=== PATIENT | male | born 1965 | race Caucasian/White ===

== ENCOUNTER → 2018-04-16 | Outpatient (CLI) | payer OTHER ==
--- NOTE | 2018-04-17 13:23 | US ---
EXAMINATION TYPE: US thyroid st tissue head/neck DATE OF EXAM: 04/16/2018 COMPARISON: NONE CLINICAL HISTORY: R22.0 SWELLING,MASS. Neck swelling, on thyroid meds, graves disease GLAND SIZE: Right Lobe: 3.5 x 1.1 x 0.9 cm Overall Parenchyma: homogenous Left Lobe: 3.2 x 1.0 x 1.0 cm Overall Parenchyma: homogeneous Isthmus Thickness: 0.1 cm NODULES RIGHT: # of nodules measured on right: 0 LEFT: # of nodules measured on left: 0 ISTHMUS: # of nodules measured in the isthmus: 0 Bilateral neck scanned, right submandibular at patient's area of concern: 0.5cm echogenic focus seen within gland. IMPRESSION: Shadowing right mandibular calculus likely relates to a nonobstructing sialolith. No thyroid nodules or enlargement.
== END | disposition home or self-care (01) ==
LOC: RADUSWWP 15:27
PROVIDERS: ATTEND Nurse Practitioner Adult Health
DX: R22.0 Localized swelling, mass and lump, head (principal)
CPT/HCPCS: 76536

== ENCOUNTER → 2019-02-03 | Outpatient (CLI) | payer OTHER ==
--- NOTE | 2019-02-03 22:00 | CONS ---
CONSULTATION DATE OF SERVICE: 02/03/2019 This patient is a 53-year-old gentleman who has been [facility] for obstructive sleep apnea-hypopnea syndrome. HISTORY OF PRESENT ILLNESS/SLEEP-WAKE EVALUATION: About 12 years ago in [place] the patient was diagnosed with severe sleep apnea, according to him, and after that he underwent throat surgery which included removing his uvula and part of the soft palate. After that, patient's breathing improved and his snoring improved, but then later he developed his symptoms again. At present, his sleep schedule is from midnight until 8:30 a.m. on weekdays and until 9:30 a.m. on weekends. Sometimes he has problems with falling asleep, but usually not significantly more than 30 minutes. No TV in bedroom. He prefers to sleep on the side position. He has loud snoring, witnessed episodes of stopped breathing during sleep, awakenings from sleep with choking and nocturia several times. No history of hypnagogic hallucinations, sleep paralysis or cataplexy. In the morning the patient wakes up tired, has difficulties paying attention, falling asleep during the day, worrying about his sleep, has problems with memory, concentration, irritability, depression and anxiety. He usually does not take naps, but rarely may take a nap at 3 p.m. Usually he does not feel refreshed after a nap. He may see dreams during naps. He is drinking one caffeinated beverage during the day. [place] Sleepiness Scale is 9. PAST MEDICAL HISTORY: Past medical history is positive for: 1. Graves' disease, treated with radioactive iodine. At present he is on treatment with thyroid replacement. 2. ADHD. PAST SURGICAL HISTORY: Uvulectomy. MEDICATIONS: 1. Levothyroxine. 2. Adderall. 3. Presently Wellbutrin for stopping smoking. SOCIAL HISTORY: Positive for smoking around one pack a day for 25 years. Alcohol consumption rarely. FAMILY HISTORY: Hypertension, heart problems, stroke, bronchitis, sleep apnea, cancer, acid reflux, thyroid problems, mental illness, restless legs. REVIEW OF SYSTEMS: Awakenings from sleep, snoring, stopped breathing during sleep, tiredness and sleepiness during the day. PHYSICAL EXAMINATION: GENERAL: A pleasant gentleman without distress. VITAL SIGNS: BP 158/84, HR 84, RR 16, height 6 feet 1 inch, weight 196, body mass index 25.8, temperature 98.1, oxygen saturation at room air 97%. HEENT: PERRLA, EOMI. Evaluation of oropharynx showed tongue protrudes midline. Extremely low position of soft palate. Mallampati IV. Slight restriction of nasal breathing. NECK: Supple. No JVD. Thyroid is not palpable. Wide neck; 16-1/2 inches in circumference. LUNGS: A few wheezes. HEART: S1, S2 regular. No murmurs, gallops or rubs. ABDOMEN: Soft and nontender. Bowel sounds are present. No organomegaly. EXTREMITIES: No clubbing or cyanosis. 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 Cranial nerves 2 to 7 intact. There is no fasciculation or atrophy. noted. No focal deficits observed. IMPRESSION: 1. Loud snoring, witnessed episodes of stopped breathing during sleep, history of obstructive sleep apnea in the past, extremely low position of soft palate, Mallampati IV, wide neck, episodes of tiredness and sleepiness during the day, awakenings from sleep; obstructive sleep apnea-hypopnea syndrome. 2. History of Graves' disease, status post treatment with radioactive iodine. 3. Hypothyroidism, presently on treatment with thyroid hormones. 4. History of attention deficit hyperactivity disorder. 5. Status post uvulectomy. 6. History of smoking for 25 pack/years. The patient continues to smoke, trying to stop smoking. PLAN: 1. Polysomnography for evaluation of patient's breathing during sleep. 2. CPAP/BiPAP titration if sleep study confirms obstructive sleep apnea-hypopnea syndrome. 3. Preferable position during sleep on the side. 4. No driving if patient feels any sleepiness. 5. I will see patient for follow up visit to explain results of testing and following plan. Thank you very much for referring this patient for consultation. Sincerely, William Bartlett MD, PhD, FAASM Diplomat of [place] [employer] [place] [employer] [facility] [place] MMODL / IJN: [id number] /
== END | disposition home or self-care (01) ==
LOC: SLEEP 14:05
PROVIDERS: ATTEND Internal Medicine
DX: G47.33 Obstructive sleep apnea (adult) (pediatric) (principal); E03.9 Hypothyroidism, unspecified; Z86.39 Personal history of other endocrine, nutritional and metabolic disease; Z86.59 Personal history of other mental and behavioral disorders; F17.210 Nicotine dependence, cigarettes, uncomplicated; Z90.89 Acquired absence of other organs; Z79.899 Other long term (current) drug therapy
CPT/HCPCS: 99211

== ENCOUNTER → 2020-08-13 | Outpatient (CLI) | payer OTHER ==
--- NOTE | 2020-08-13 17:54 | XR ---
EXAMINATION TYPE: XR shoulder complete LT DATE OF EXAM: 08/13/2020 COMPARISON: NONE HISTORY: Shoulder pain TECHNIQUE: 3 views FINDINGS: I see no fracture nor dislocation. Joint spaces are normal. There are no pathologic calcifi cations. IMPRESSION: Negative left shoulder exam.
== END ==
LOC: RADXRMAIN 16:22
PROVIDERS: ATTEND Nurse Practitioner Adult Health
DX: M25.512 Pain in left shoulder (principal)

== ENCOUNTER → 2021-12-20 | Outpatient (CLI) | payer OTHER ==
--- NOTE | 2021-12-20 09:11 | CTL ---
EXAMINATION TYPE: CT Low Dose Lung DATE OF EXAM ORDERED: 12/20/2021 HISTORY: Tobacco use. Lung cancer screening CT DLP: 140.[address] CTDI: 3.7 mGy Automated exposure control for dose reduction was used. SCREENING VISIT: First screening visit. COMPARISON: None TECHNIQUE: Low dose computed tomography scan was performed through the chest at 1 mm thick sections a nd reconstructed images in multiple planes at 1 mm and [address] DIAGNOSTIC QUALITY: Satisfactory FINDINGS: LUNG NODULES: No concerning pulmonary nodules. LUNGS: COPD: Severity: Minimal apical right paraseptal emphysematous changes. Fibrosis: Severity: None Lymph nodes: 2 mm right intrafissural lymph node identified. Other findings: None RIGHT PLEURAL SPACE: Effusion: None Calcification: None Thickening: Mild apical thickening. Pneumothorax: None LEFT PLEURAL SPACE: Effusion: None Calcification: None Thickening: Mild apical thickening. Pneumothorax: None HEART: Heart Size: Normal Coronary Calcification: Dense left anterior descending coronary artery calcification and/or stent. Pericardial Effusion: None OTHER FINDINGS: Upper abdomen: Thickening of the left adrenal gland. Bony thorax: None Supraclavicular region: None Other: None IMPRESSION: No concerning pulmonary nodules. CT LUNG RAD AND CT CHEST RECOMMENDATION: Lung-Rad 1 Negative: Continue annual screening with LDCT in 12 months. S Modifier (other clinically significant findings): None
--- NOTE | 2021-12-20 09:19 | US ---
EXAMINATION TYPE: US abdomen complete DATE OF EXAM: 12/20/2021 COMPARISON: CT lung CLINICAL HISTORY: K219 GERD WITHOUT ESOPHAGITIS. EXAM MEASUREMENTS: Liver Length: 17.3 cm Gallbladder Wall: 0.2 cm CBD: 0.2 cm Spleen: 11.9 cm Right Kidney: 10.4 x 4.9 x 5.2 cm Left Kidney: 13.1 x 5.7 x 5.1 cm Patient of large body habitus, technically difficult limited exam. Pancreas: wnl as seen, partially obscured by overlying bowel Liver: Increased attenuation, decreased visualization of vessels suggestive of fatty infiltrate, upp er limites of normal in size Gallbladder: wnl Evidence for sonographic Rouse's sign: no CBD: wnl Spleen: wnl Right Kidney: very limited views, inferior pole obscured by overlying bowel gas Left Kidney: measures large Upper IVC: wnl Abd Aorta: distal and bifurcation obscured by overlying bowel gas The intrahepatic portion of the IVC and proximal abdominal aorta are within normal limits. There is no evidence of cholelithiasis. Common bile duct is unremarkable. The visualized portions of the hart creas are homogenous. The spleen is unremarkable. Kidneys are symmetric and free of hydronephrosis. No renal lesions are seen. IMPRESSION: There is evidence of hepatic steatosis.
[2021-12-20 15:11] LABS: ALT 44 U/L (10-49); AST 18 U/L (14-35); African American GFR (CKD) 97.8 (60.0-200.0); Albumin 4.3 g/dL (3.8-4.9); Albumin/Globulin Ratio 1.48 (1.60-3.17); Alkaline Phosphatase 60 U/L (41-126); Blood Urea Nitrogen 18.6 mg/dL (9.0-27.0); Calcium 9.7 mg/dL (8.7-10.3); Carbon Dioxide 26.4 mmol/L (20.0-27.5); Chloride 105 mmol/L (96-109); Chol/HDL Ratio 6.99 Ratio; Globulin 2.9 g/dL (1.6-3.3); Glucose 127 mg/dL (70-110); LDL Cholesterol,Calculated 139.8 mg/dL (0.0-131.0); Non-African American GFR(CKD) 84.4 (60.0-200.0); Potassium 4.7 mmol/L (3.5-5.5); Sodium 140 mmol/L (135-145); Total Protein 7.2 g/dL (6.2-8.2)
== END | disposition home or self-care (01) ==
LOC: RADCTMAIN 08:10
PROVIDERS: ATTEND Internal Medicine
DX: Z12.2 Encounter for screening for malignant neoplasm of respiratory organs (principal); K21.9 Gastro-esophageal reflux disease without esophagitis; K76.0 Fatty (change of) liver, not elsewhere classified; E03.9 Hypothyroidism, unspecified; E78.2 Mixed hyperlipidemia; F17.200 Nicotine dependence, unspecified, uncomplicated
CPT/HCPCS: 71271; 76700; 80053; 80061; 84439; 84443

== ENCOUNTER → 2022-04-21 | Outpatient (CLI) | payer OTHER ==
[2022-04-21 18:57] LABS: Basophils # (A) 0.08 X 10*3/uL (0.00-0.10); Basophils % (A) 1.1 %; Eosinophils # (A) 0.35 X 10*3/uL (0.04-0.35); HCT 48.8 % (39.6-50.0); Immature Grans, Automated 0.3 %; Lymphocytes # (A) 2.04 X 10*3/uL (0.90-5.00); MCH 28.3 pg (27.0-32.0); MCHC 32.8 g/dL (32.0-37.0); MCV 86.4 fL (80.0-97.0); Mean Platelet Volume 10.4 fL (9.5-12.2); Monocytes % (A) 7.1 %; NRBC Per 100 WBC 0 /100 WBCS (0.0-0.0); Neutrophils # (A) 4.05 X 10*3/uL (1.80-7.70); Neutrophils % (A) 57.5 %; Platelet Count 393 X 10*3/uL (140-440); RBC 5.65 X 10*6/uL (4.40-5.60); RDW 13.5 % (11.5-14.5); WBC 7.04 X 10*3/uL (4.50-10.00)
[2022-04-21 18:58] LABS: ALT 51 U/L (10-49); AST 27 U/L (14-35); African American GFR (CKD) 77.9 (60.0-200.0); Albumin 4.4 g/dL (3.8-4.9); Albumin/Globulin Ratio 1.72 (1.60-3.17); Alkaline Phosphatase 66 U/L (41-126); Blood Urea Nitrogen 11.4 mg/dL (9.0-27.0); Calcium 9.8 mg/dL (8.7-10.3); Carbon Dioxide 25.7 mmol/L (20.0-27.5); Chloride 101 mmol/L (96-109); Chol/HDL Ratio 7.79 Ratio; Globulin 2.5 g/dL (1.6-3.3); Glucose 140 mg/dL (70-110); LDL Cholesterol,Calculated 171.6 mg/dL (0.0-131.0); Non-African American GFR(CKD) 67.2 (60.0-200.0); Potassium 4.8 mmol/L (3.5-5.5); Sodium 137 mmol/L (135-145); Total Protein 6.9 g/dL (6.2-8.2)
== END | disposition home or self-care (01) ==
LOC: LABWHC1 12:56
PROVIDERS: ATTEND Internal Medicine
DX: E03.9 Hypothyroidism, unspecified (principal)
CPT/HCPCS: 36415; 80053; 80061; 83036; 84439; 84443; 85025

== ENCOUNTER 2024-09-08 16:23 | Emergency (ER) | payer OTHER ==
[2024-09-08 16:59] VITALS: TEMP 98.1
--- NOTE | 2024-09-08 16:59 | ED ---
Extremity Problem HPI - General Chief complaint: Extremity Problem,Nontraumatic Stated complaint: swelling hands and feet Time Seen by Provider: 09/08/24 16:59 Source: patient Mode of arrival: ambulatory Limitations: no limitations - History of Present Illness Initial comments: 59-year-old male presenting with chief complaint of swelling in the hands and feet. Has been ongoing for few weeks. He reports that he does get dyspnea and some chest discomfort on exertion such as climbing stairs. He was seen at urgent care and sent here for further evaluation. - Related Data Home Medications Medication Instructions Recorded Confirmed Aspirin EC [Ecotrin Low Dose] 81 mg PO BID 09/08/24 09/08/24 Ezetimibe [Zetia] 10 mg PO DIRECTED 09/08/24 09/08/24 Lipitor (Unknown Strength) 1 dose PO DIRECTED 09/08/24 09/08/24 Metoprolol Succinate (Unknown 1 dose PO DIRECTED 09/08/24 09/08/24 Strength) metFORMIN HCL 500 mg PO DAILY 09/08/24 09/08/24 Previous Rx's Medication Instructions Recorded Levothyroxine Sodium 200 mcg PO DAILY #30 tab 09/08/24 Allergies Allergy/AdvReac Type Severity Reaction Status Date / Time No Known Allergies Allergy Verified 09/08/24 20:32 Review of Systems ROS Statement: Those systems with pertinent positive or pertinent negative responses have been documented in the HPI. ROS Other: All systems not noted in ROS Statement are negative. Past Medical History Past Medical History: Coronary Artery Disease (CAD), Diabetes Mellitus, Thyroid Disorder History of Any Multi-Drug Resistant Organisms: None Reported Past Surgical History: Heart Catheterization With Stent Additional Past Surgical History / Comment(s): thyoidectomy Past Psychological History: No Psychological Hx Reported Smoking Status: Current every day smoker Past Alcohol Use History: None Reported Past Drug Use History: None Reported General Exam - General Exam Comments Initial Comments: Visual Physical Exam Vital signs reviewed General: Well-appearing, nontoxic, no acute distress. Head: Normocephalic, atraumatic Eyes: PERRLA, EOMI ENT: Airway patent Chest: Nonlabored breathing Skin: No visual rash, normal skin tone Neuro: Alert and oriented 3 Musculoskeletal: No gross abnormalities Limitations: no limitations Course Vital Signs 09/08/24 16:55 Temperature 98.1 F Pulse Rate 63 Respiratory 17 Rate Blood Pressure 163/75 O2 Sat by Pulse 98 Oximetry Medical Decision Making - Medical Decision Making I performed the quick note portion of this visit, electronically signed Dave Rebolledo PA-C - Lab Data Result diagrams: 09/08/24 18:17 09/08/24 18:17 Lab Results 09/08/24 09/08/24 09/08/24 Range/Units 18:17 18:17 18:17 WBC 10.03 H (4.50-10.00) 10*3/uL RBC 4.67 (4.40-5.60) 10*6/uL Hgb 14.8 (13.0-17.0) g/dL Hct 43.2 (39.6-50.0) % MCV 92.5 (80.0-97.0) fL MCH 31.7 (27.0-32.0) pg MCHC 34.3 (32.0-37.0) g/dL Plt Count 316 (140-440) 10*3/uL MPV 10.5 (9.5-12.2) fL Immature Gran % (Auto) 0.3 % Neutrophils % 57.3 % Lymphocytes % 28.2 % Monocytes % 7.3 % Eosinophils % 5.5 % Basophils % 1.4 % Immature Gran # 0.03 (0.00-0.04) 10*3/uL Neutrophils # 5.75 (1.80-7.70) 10*3/uL Lymphocytes # 2.83 (0.90-5.00) 10*3/uL Monocytes # 0.73 (0.20-1.00) 10*3/uL Eosinophils # 0.55 H (0.04-0.35) 10*3/uL Basophils # 0.14 H (0.00-0.10) 10*3/uL Sodium 136 L (137-145) mmol/L Potassium 4.2 (3.5-5.1) mmol/L Chloride 100 (98-107) mmol/L Carbon Dioxide 26 (22-30) mmol/L Anion Gap 10 mmol/L BUN 20 (9-20) mg/dL Creatinine 1.45 H (0.66-1.25) mg/dL Est GFR (CKD-EPI)AfAm 61 (>60 ml/min/1.73 sqM) Est GFR (CKD-EPI)NonAf 53 (>60 ml/min/1.73 sqM) Glucose 102 H (74-99) mg/dL Calcium 10.1 (8.4-10.2) mg/dL Magnesium 2.0 (1.6-2.3) mg/dL Total Bilirubin 0.6 (0.2-1.3) mg/dL AST 43 (17-59) U/L ALT 42 (4-49) U/L Alkaline Phosphatase 46 (38-126) U/L Troponin I <0.012 (0.000-0.034) ng/mL NT-Pro-B Natriuret Pep 395 pg/mL Total Protein 7.2 (6.3-8.2) g/dL Albumin 4.4 (3.5-5.0) g/dL TSH (0.465-4.680) mIU/L Free T4 (0.78-2.19) ng/dL Influenza Type A (PCR) (Not Detectd) Influenza Type B (PCR) (Not Detectd) RSV (PCR) (Not Detectd) SARS-CoV-2 (PCR) (Not Detectd) 09/08/24 09/08/24 Range/Units 18:17 18:17 WBC (4.50-10.00) 10*3/uL RBC (4.40-5.60) 10*6/uL Hgb (13.0-17.0) g/dL Hct (39.6-50.0) % MCV (80.0-97.0) fL MCH (27.0-32.0) pg MCHC (32.0-37.0) g/dL Plt Count (140-440) 10*3/uL MPV (9.5-12.2) fL Immature Gran % (Auto) % Neutrophils % % Lymphocytes % % Monocytes % % Eosinophils % % Basophils % % Immature Gran # (0.00-0.04) 10*3/uL Neutrophils # (1.80-7.70) 10*3/uL Lymphocytes # (0.90-5.00) 10*3/uL Monocytes # (0.20-1.00) 10*3/uL Eosinophils # (0.04-0.35) 10*3/uL Basophils # (0.00-0.10) 10*3/uL Sodium (137-145) mmol/L Potassium (3.5-5.1) mmol/L Chloride (98-107) mmol/L Carbon Dioxide (22-30) mmol/L Anion Gap mmol/L BUN (9-20) mg/dL Creatinine (0.66-1.25) mg/dL Est GFR (CKD-EPI)AfAm (>60 ml/min/1.73 sqM) Est GFR (CKD-EPI)NonAf (>60 ml/min/1.73 sqM) Glucose (74-99) mg/dL Calcium (8.4-10.2) mg/dL Magnesium (1.6-2.3) mg/dL Total Bilirubin (0.2-1.3) mg/dL AST (17-59) U/L ALT (4-49) U/L Alkaline Phosphatase (38-126) U/L Troponin I (0.000-0.034) ng/mL NT-Pro-B Natriuret Pep pg/mL Total Protein (6.3-8.2) g/dL Albumin (3.5-5.0) g/dL TSH >100.000 H (0.465-4.680) mIU/L Free T4 0.10 L (0.78-2.19) ng/dL Influenza Type A (PCR) Not Detected (Not Detectd) Influenza Type B (PCR) Not Detected (Not Detectd) RSV (PCR) Not Detected (Not Detectd) SARS-CoV-2 (PCR) Not Detected (Not Detectd) Disposition Clinical Impression: Hypothyroidism Disposition: HOME SELF-CARE Condition: Fair Instructions (If sedation given, give patient instructions): Hypothyroidism (ED) Additional Instructions: Follow-up with your PCP. It is important that you take your medications including your levothyroxine as prescribed. If you do not, this could result you to go into a coma and . Report back to ER with any new or worsening symptoms. Prescriptions: Levothyroxine Sodium 200 mcg PO DAILY #30 tab Is patient prescribed a controlled substance at d/c from ED?: No Referrals: Kobi Schaefer DO [Primary Care Provider] - 1-2 days Time of Disposition: 22:01
[2024-09-08 18:25] LABS: Basophils # (A) 0.14 10*3/uL (0.00-0.10); Basophils % (A) 1.4 %; Eosinophils # (A) 0.55 10*3/uL (0.04-0.35); Eosinophils % (A) 5.5 %; HCT 43.2 % (39.6-50.0); HGB 14.8 g/dL (13.0-17.0); Lymphocytes # (A) 2.83 10*3/uL (0.90-5.00); Lymphocytes % (A) 28.2 %; MCH 31.7 pg (27.0-32.0); MCHC 34.3 g/dL (32.0-37.0); MCV 92.5 fL (80.0-97.0); Mean Platelet Volume 10.5 fL (9.5-12.2); Monocytes # (A) 0.73 10*3/uL (0.20-1.00); Monocytes % (A) 7.3 %; Neutrophils # (A) 5.75 10*3/uL (1.80-7.70); Neutrophils % (A) 57.3 %; Platelet Count 316 10*3/uL (140-440); RBC 4.67 10*6/uL (4.40-5.60); RDW 13.1 % (11.5-14.5); WBC 10.03 10*3/uL (4.50-10.00)
[2024-09-08 18:39] LABS: ALT 42 U/L (4-49); AST 43 U/L (17-59); African American GFR (CKD) 61 (>60 ml/min/1.73 sqM); Albumin 4.4 g/dL (3.5-5.0); Alkaline Phosphatase 46 U/L (38-126); Anion Gap 10 mmol/L; Blood Urea Nitrogen 20 mg/dL (9-20); Calcium 10.1 mg/dL (8.4-10.2); Carbon Dioxide 26 mmol/L (22-30); Chloride 100 mmol/L (98-107); Glucose 102 mg/dL (74-99); Non-African American GFR(CKD) 53 (>60 ml/min/1.73 sqM); Potassium 4.2 mmol/L (3.5-5.1); Sodium 136 mmol/L (137-145); Total Bilirubin 0.6 mg/dL (0.2-1.3); Total Protein 7.2 g/dL (6.3-8.2)
[2024-09-08 18:48] LABS: NT-Pro-B-Type Natriuretic Pept 395 pg/mL
[2024-09-08 19:03] LABS: Influenza A Not Detected (Not Detectd); Influenza B Not Detected (Not Detectd); RSV Not Detected (Not Detectd)
--- NOTE | 2024-09-08 19:10 | XR ---
EXAMINATION TYPE: XR chest 2V DATE OF EXAM: 09/08/2024 6:39 PM COMPARISON: Chest radiographs from 09/08/2024 CLINICAL INDICATION: Male, 59 years old with history of edema; TECHNIQUE: XR chest 2V Frontal and lateral views of the chest. FINDINGS: Lungs/Pleura: There is no evidence of pleural effusion, focal consolidation, or pneumothorax. Pulmonary vascularity: Mild pulmonary vascular congestion. Heart/mediastinum: Cardiomediastinal silhouette is unremarkable. Musculoskeletal: No acute osseous pathology. IMPRESSION: Mild pulmonary edema. No acute cardiopulmonary disease/process. [facility], , 09/08/2024 7:07 PM
[2024-09-08] MEDS: LEVOTHYROXINE 100 MCG TAB PO STA (22:11)
[2024-09-08 22:15] VITALS: BP 145/85; PULSE 70; RESP 18
== END 2024-09-08 22:16 | disposition home or self-care (01) ==
LOC: EC 16:23
DX: E03.9 Hypothyroidism, unspecified (principal); F17.200 Nicotine dependence, unspecified, uncomplicated
CPT/HCPCS: 36415; 71046; 80053; 83735; 83880; 84439; 84443; 84484; 85025; 87636; 93005; 99284

== ENCOUNTER 2024-09-13 21:33 | Inpatient (IN) | payer OTHER ==
--- NOTE | 2024-09-13 21:57 | ED ---
Dizziness HPI - General Chief Complaint: Dizziness Stated Complaint: near syncope Time Seen by Provider: 09/13/24 21:56 Source: patient, RN notes reviewed, old records reviewed Mode of arrival: ambulatory Limitations: no limitations - History of Present Illness Initial Comments: This is a 59 male to the ER. This patient presents today for evaluation regards to recurrently falling asleep possible syncope versus near syncopal episodes. Patient has no specific complaints he is sleeping during evaluation here in the ER history of sleep apnea feeling members at bedside daughter concern for abnormal thyroid studies MD Complaint: dizziness, near syncope, other (Patient states he just keeps falling asleep is unable to stay awake fatigue) -: days(s) Timing: sudden onset Description: lightheadedness History of Same: Yes History of Trauma: No Severity: moderate Worsens With: nothing Associated Symptoms: denies other symptoms, syncope - Related Data Home Medications Medication Instructions Recorded Confirmed Aspirin EC [Ecotrin Low Dose] 81 mg PO BID 09/08/24 09/14/24 metFORMIN HCL 500 mg PO DAILY 09/08/24 09/14/24 Dorzolamide-Timol 2.23%/0.68% 1 drop LEFT EYE BID 09/14/24 09/14/24 [Cosopt] Previous Rx's Medication Instructions Recorded Levothyroxine Sodium 200 mcg PO DAILY #30 tab 09/08/24 Atorvastatin [Lipitor] 40 mg PO HS #30 tab 09/16/24 Ezetimibe [Zetia] 10 mg PO DAILY #30 tab 09/16/24 Furosemide [Lasix] 80 mg PO DAILY #30 tab 09/16/24 Losartan [Cozaar] 25 mg PO DAILY #30 tab 09/16/24 Metoprolol Succinate (ER) [Toprol 25 mg PO DAILY #30 tab 09/16/24 XL] Nicotine 21Mg/24Hr Patch [Habitrol] 1 patch TRANSDERM DAILY #30 patch 09/16/24 Allergies Allergy/AdvReac Type Severity Reaction Status Date / Time No Known Allergies Allergy Verified 09/14/24 09:57 Review of Systems ROS Statement: Those systems with pertinent positive or pertinent negative responses have been documented in the HPI. ROS Other: All systems not noted in ROS Statement are negative. Past Medical History Past Medical History: Coronary Artery Disease (CAD), Diabetes Mellitus, Thyroid Disorder History of Any Multi-Drug Resistant Organisms: None Reported Past Surgical History: Heart Catheterization With Stent Additional Past Surgical History / Comment(s): thyoidectomy Past Psychological History: No Psychological Hx Reported Smoking Status: Current every day smoker Past Alcohol Use History: None Reported Past Drug Use History: None Reported General Exam Limitations: no limitations General appearance: alert, in no apparent distress Head exam: Present: atraumatic, normocephalic, normal inspection Eye exam: Present: normal appearance, PERRL, EOMI. Absent: scleral icterus, conjunctival injection, periorbital swelling ENT exam: Present: normal exam, mucous membranes moist Neck exam: Present: normal inspection. Absent: tenderness, meningismus, lymphad enopathy Respiratory exam: Present: normal lung sounds bilaterally. Absent: respiratory distress, wheezes, rales, rhonchi, stridor Cardiovascular Exam: Present: regular rate, normal rhythm, normal heart sounds. Absent: systolic murmur, diastolic murmur, rubs, gallop, clicks GI/Abdominal exam: Present: soft, normal bowel sounds. Absent: distended, tenderness, guarding, rebound, rigid Extremities exam: Present: normal inspection, full ROM, normal capillary refill. Absent: tenderness, pedal edema, joint swelling, calf tenderness Back exam: Present: normal inspection Neurological exam: Present: alert, oriented X3, CN II-XII intact Psychiatric exam: Present: normal affect, normal mood Skin exam: Present: warm, dry, intact, normal color. Absent: rash Course Vital Signs 09/13/24 09/13/24 09/13/24 21:34 21:54 22:47 Temperature 98.0 F 97.7 F Pulse Rate 67 65 63 Respiratory 19 16 Rate Blood Pressure 171/79 154/79 150/82 O2 Sat by Pulse 92 L 96 97 Oximetry Fraction of Inspired Oxygen (FIO2) 09/13/24 09/14/24 09/14/24 23:31 01:19 02:30 Temperature Pulse Rate 65 61 62 Respiratory 18 16 20 Rate Blood Pressure 152/82 156/89 161/90 O2 Sat by Pulse 98 96 99 Oximetry Fraction of Inspired Oxygen (FIO2) 09/14/24 09/14/24 09/14/24 02:31 02:44 03:30 Temperature 98.0 F Pulse Rate 64 68 62 Respiratory 16 Rate Blood Pressure 127/82 O2 Sat by Pulse 95 Oximetry Fraction of Inspired Oxygen (FIO2) 09/14/24 09/14/24 03:36 04:06 Temperature 98.0 F Pulse Rate 62 Respiratory 16 Rate Blood Pressure 141/93 O2 Sat by Pulse 98 Oximetry Fraction of 40 Inspired Oxygen (FIO2) - Reevaluation(s) Reevaluation #1: 09/13/24 22:26 Medical records reviewed Inpatient hospitalization with thyroid illness Reevaluation #2: Symptoms improved here in the ER Reevaluation #3: Patient informed of results questions answered Reevaluation #4: Was pt. sent in by a medical professional or institution ([facility], [facility], urgent care, hospital, or retirement...) When possible be specific @ -no Did you speak to anyone other than the patient for history (EMS, parent, family, police, friend...)? What history was obtained from this source @ -no Did you review nursing and triage notes (agree or disagree)? Why? @ -agree Are old charts reviewed (outside hosp., previous admission, EMS record, old EKG, old radiological studies, urgent care reports/EKG's, retirement records)? Report findings @ -yes Differential Diagnosis (chest pain, altered mental status, abdominal pain women, abdominal pain men, vaginal bleeding, weakness, fever, dyspnea, syncope, headache, dizziness, GI bleed, back pain, seizure, CVA, palpatations, mental health, musculoskeletal)? @ -prior EKG interpreted by me (3pts min.). @ -yes X-rays interpreted by me (1pt min.). @ -yes negative for acute disease CT interpreted by me (1pt min.). @ -no U/S interpreted by me (1pt. min.). @ -no What testing was considered but not performed or refused? (CT, X-rays, U/S, labs)? Why? @ -none What meds were considered but not given or refused? Why? @ -none Did you discuss the management of the patient with other professionals (professionals i.e. [facility], [facility], lab, RT, psych nurse, social media editor, assembly machine set up mechanic, teacher, fire officer, case management director)? Give summary @ -no Was smoking cessation discussed for >3mins.? @ -no Was critical care preformed (if so, how long)? @ -no Were there social determinants of health that impacted care today? How? (Homelessness, low income, unemployed, alcoholism, drug addiction, transportation, low edu. Level, literacy, decrease access to med. care, prison, rehab)? @ -none Was there de-escalation of care discussed even if they declined (Discuss DNR or withdrawal of care, Hospice)? DNR status @ -no What co-morbidities impacted this encounter? (DM, HTN, Smoking, COPD, CAD, Ca ncer, CVA, ARF, Chemo, Hep., AIDS, mental health diagnosis, sleep apnea, morbid obesity)? @ -none Was patient admitted / discharged? Hospital course, mention meds given and route, prescriptions, significant lab abnormalities, going to OR and other pertinent info. @ - 59 male to the ER for evaluation of syncope near syncope, patient presents today for evaluation of recurrent insomnia and fatigue restlessness and thoughts of near syncope and weakness, there was thought of thyroid or thyroid, but thyroid testing is normal patient is having significant hypoxia with signs of sleep apnea and somnolence throughout ER stay patient was admitted for pulmonology to evaluate Admitted Undiagnosed new problem with uncertain prognosis? @ -no Drug Therapy requiring intensive monitoring for toxicity (Heparin, Nitro, Insulin, Cardizem)? @ -no Were any procedures done? @ -no Diagnosis/symptom? @ -Recurrent syncope near syncope Acute, or Chronic, or Acute on Chronic? @ -Acute Uncomplicated (without systemic symptoms) or Complicated (systemic symptoms)? @ -Complicated Side effects of treatment? @ -no Exacerbation, Progression, or Severe Exacerbation? @ -exacerbation Poses a threat to life or bodily function? How? (Chest pain, USA, IA, pneumonia, PE, COPD, DKA, ARF, appy, cholecystitis, CVA, Diverticulitis, Homicidal, Suicidal, threat to staff... and all critical care pts) @ -yes recurrent syncope Reevaluation #5: Differential Syncope: Valvular disease, hypertrophic cardiomyopathy, pulmonary embolism, tamponade, tachycardia, bradycardia, IA, hypovolemia, hemorrhage, dissection, anemia, intracranial hemorrhage, seizure, hypoglycemia, carbon monoxide poisoning, this is not meant to be an all-inclusive list. - Consultations Consultation #1: Spoke with admitting physicians agreed to admit this patient EKG Findings - EKG Comments: EKG Findings:: EKG is sinus 66 NE 148 QRS 107 QTc 425 - EKG Results: EKG: interpreted by CHARANJIT Medical Decision Making - Medical Decision Making 59 male to the ER for evaluation of syncope near syncope, patient presents today for evaluation of recurrent insomnia and fatigue restlessness and thoughts of near syncope and weakness, there was thought of thyroid or thyroid, but thyroid testing is normal patient is having significant hypoxia with signs of sleep apnea and somnolence throughout ER stay patient was admitted for pulmonology to evaluate - Lab Data Result diagrams: 09/16/24 05:38 09/16/24 05:38 Lab Results 09/13/24 09/13/24 09/13/24 Range/Units 22:46 22:46 22:46 WBC 8.92 (4.50-10.00) 10*3/uL RBC 4.16 L (4.40-5.60) 10*6/uL Hgb 13.3 (13.0-17.0) g/dL Hct 39.3 L (39.6-50.0) % MCV 94.5 (80.0-97.0) fL MCH 32.0 (27.0-32.0) pg MCHC 33.8 (32.0-37.0) g/dL Plt Count 306 (140-440) 10*3/uL MPV 10.4 (9.5-12.2) fL Immature Gran % (Auto) 0.2 % Neutrophils % 60.9 % Lymphocytes % 24.3 % Monocytes % 7.7 % Eosinophils % 5.6 % Basophils % 1.3 % Immature Gran # 0.02 (0.00-0.04) 10*3/uL Neutrophils # 5.42 (1.80-7.70) 10*3/uL Lymphocytes # 2.17 (0.90-5.00) 10*3/uL Monocytes # 0.69 (0.20-1.00) 10*3/uL Eosinophils # 0.50 H (0.04-0.35) 10*3/uL Basophils # 0.12 H (0.00-0.10) 10*3/uL PT 11.2 (10.0-12.5) sec INR 1.0 (<1.2) APTT 25.4 (22.0-30.0) sec Sodium 139 (137-145) mmol/L Potassium 4.0 (3.5-5.1) mmol/L Chloride 99 (98-107) mmol/L Carbon Dioxide 32 H (22-30) mmol/L Anion Gap 8 mmol/L BUN 30 H (9-20) mg/dL Creatinine 1.51 H (0.66-1.25) mg/dL Est GFR (CKD-EPI)AfAm 58 (>60 ml/min/1.73 sqM) Est GFR (CKD-EPI)NonAf 50 (>60 ml/min/1.73 sqM) Glucose 137 H (74-99) mg/dL Plasma Lactic Acid Vic (0.7-2.0) mmol/L Calcium 10.1 (8.4-10.2) mg/dL Phosphorus 4.4 (2.5-4.5) mg/dL Magnesium 1.9 (1.6-2.3) mg/dL Total Bilirubin 0.4 (0.2-1.3) mg/dL AST 38 (17-59) U/L ALT 45 (4-49) U/L Alkaline Phosphatase 53 (38-126) U/L Troponin I (0.000-0.034) ng/mL NT-Pro-B Natriuret Pep 813 pg/mL Total Protein 7.0 (6.3-8.2) g/dL Albumin 4.2 (3.5-5.0) g/dL TSH 34.000 H (0.465-4.680) mIU/L Free T4 1.21 (0.78-2.19) ng/dL Serum Alcohol <10 mg/dL 09/13/24 09/13/24 Range/Units 22:46 22:46 WBC (4.50-10.00) 10*3/uL RBC (4.40-5.60) 10*6/uL Hgb (13.0-17.0) g/dL Hct (39.6-50.0) % MCV (80.0-97.0) fL MCH (27.0-32.0) pg MCHC (32.0-37.0) g/dL Plt Count (140-440) 10*3/uL MPV (9.5-12.2) fL Immature Gran % (Auto) % Neutrophils % % Lymphocytes % % Monocytes % % Eosinophils % % Basophils % % Immature Gran # (0.00-0.04) 10*3/uL Neutrophils # (1.80-7.70) 10*3/uL Lymphocytes # (0.90-5.00) 10*3/uL Monocytes # (0.20-1.00) 10*3/uL Eosinophils # (0.04-0.35) 10*3/uL Basophils # (0.00-0.10) 10*3/uL PT (10.0-12.5) sec INR (<1.2) APTT (22.0-30.0) sec Sodium (137-145) mmol/L Potassium (3.5-5.1) mmol/L Chloride (98-107) mmol/L Carbon Dioxide (22-30) mmol/L Anion Gap mmol/L BUN (9-20) mg/dL Creatinine (0.66-1.25) mg/dL Est GFR (CKD-EPI)AfAm (>60 ml/min/1.73 sqM) Est GFR (CKD-EPI)NonAf (>60 ml/min/1.73 sqM) Glucose (74-99) mg/dL Plasma Lactic Acid Vic 1.7 (0.7-2.0) mmol/L Calcium (8.4-10.2) mg/dL Phosphorus (2.5-4.5) mg/dL Magnesium (1.6-2.3) mg/dL Total Bilirubin (0.2-1.3) mg/dL AST (17-59) U/L ALT (4-49) U/L Alkaline Phosphatase (38-126) U/L Troponin I 0.012 (0.000-0.034) ng/mL NT-Pro-B Natriuret Pep pg/mL Total Protein (6.3-8.2) g/dL Albumin (3.5-5.0) g/dL TSH (0.465-4.680) mIU/L Free T4 (0.78-2.19) ng/dL Serum Alcohol mg/dL - Radiology Data Radiology results: report reviewed (Chest x-ray is negative for acute disease), image reviewed Disposition Clinical Impression: Dizziness, Hypothyroidism, Near syncope, Insomnia Disposition: ADMITTED IP TO THIS [facility] Condition: Fair Is patient prescribed a controlled substance at d/c from ED?: No Time of Disposition: 01:00
[2024-09-13] MEDS: SODIUM CHLORIDE 0.9% 1,000 ML IV SCH (22:58)
[2024-09-13 23:02] LABS: Basophils # (A) 0.12 10*3/uL (0.00-0.10); Basophils % (A) 1.3 %; Eosinophils % (A) 5.6 %; HCT 39.3 % (39.6-50.0); HGB 13.3 g/dL (13.0-17.0); Lymphocytes # (A) 2.17 10*3/uL (0.90-5.00); Lymphocytes % (A) 24.3 %; MCHC 33.8 g/dL (32.0-37.0); MCV 94.5 fL (80.0-97.0); Mean Platelet Volume 10.4 fL (9.5-12.2); Monocytes # (A) 0.69 10*3/uL (0.20-1.00); Monocytes % (A) 7.7 %; Neutrophils # (A) 5.42 10*3/uL (1.80-7.70); Neutrophils % (A) 60.9 %; Platelet Count 306 10*3/uL (140-440); RBC 4.16 10*6/uL (4.40-5.60); WBC 8.92 10*3/uL (4.50-10.00)
[2024-09-13 23:14] LABS: ALT 45 U/L (4-49); AST 38 U/L (17-59); African American GFR (CKD) 58 (>60 ml/min/1.73 sqM); Albumin 4.2 g/dL (3.5-5.0); Alcohol <10 mg/dL; Alkaline Phosphatase 53 U/L (38-126); Anion Gap 8 mmol/L; Blood Urea Nitrogen 30 mg/dL (9-20); Calcium 10.1 mg/dL (8.4-10.2); Carbon Dioxide 32 mmol/L (22-30); Chloride 99 mmol/L (98-107); Glucose 137 mg/dL (74-99); Magnesium 1.9 mg/dL (1.6-2.3); Non-African American GFR(CKD) 50 (>60 ml/min/1.73 sqM); Phosphorus 4.4 mg/dL (2.5-4.5); Sodium 139 mmol/L (137-145); Total Bilirubin 0.4 mg/dL (0.2-1.3)
[2024-09-13 23:18] LABS: Partial Thromboplastin Time 25.4 sec (22.0-30.0); Prothrombin Time 11.2 sec (10.0-12.5)
[2024-09-13 23:23] LABS: NT-Pro-B-Type Natriuretic Pept 813 pg/mL
[2024-09-14 01:12] LABS: T4, Free (Free Thyroxine) 1.21 ng/dL (0.78-2.19)
[2024-09-14] MEDS ORDERED: NALOXONE 0.4 MG/ML 1 ML VIAL IV PRN (02:08)
[2024-09-14] MEDS ORDERED: ONDANSETRON 4 MG/2 ML VIAL IVP PRN (02:08)
[2024-09-14] MEDS: IPRATROPIUM-ALBUTEROL 3 ML NEB INHALATION STA (02:31)
[2024-09-14] MEDS: methylPREDNISolone SOD SUCCI 125 MG/2 ML VIAL IV STA (02:56)
--- NOTE | 2024-09-14 03:31 | P.HPIM ---
History of Present Illness H&P Date: 09/14/24 Chief Complaint: Dizziness Patient is a 59 year old male with past medical history of coronary artery disease with prior stenting, diabetes mellitus, hypothyroidism status post thyroidectomy presents to the ED with dizziness. Patient reports experiencing dizziness with multiple black outs. The patient presented to the ED a few days ago with complaint of swelling in his hands and feet along with dyspnea and some chest discomfort on exertion. There was concern for hypothyroidism at that visit as his TSH was more than 100 and free T4 was 0.1. Chest x-ray done showed mild pulmonary edema but no acute cardiopulmonary disease/process. An EKG was also done that showed normal sinus rhythm with a rate of 68 bpm and QTc 444 ms. Patient had stopped taking Synthorid for a few months. He was advised to be compliant with his Synthroid and follow-up with his primary care provider and discharged home. Patient reports going home and having black outs. He reports increased sleepiness. His friends advised him to come to the ED for evaluation. He mentions having SIVAKUMAR diagnosed with a sleep study ordered by his PCP. He has CPAP machine but lately has been non compliant with CPAP. While evaluating in the ED he became hypoxic. Patient also mentions smoking a quarter pack a day, has tried to quit in the past but has been unsuccessful. Denies fever, chills, cough, chest pain, palpitations, abdominal pain, vomiting, hematuria, dysuria, hematochezia, melena, headache, slurred speech, numbness, tingling. ED documentation reviewed. In the ED patient was treated with DuoNeb, Solu- Medrol, 0.9 normal saline. Vitals on admission T 98 F, UT 67 bpm, RR 19, BP 171/79, oxygen saturation 92% on room air. Repeat vitals: Oxygen saturation 96% on 2 L of oxygen via nasal cannula EKG independently interpreted as normal sinus rhythm, T wave inversions in lead I, 2, aVL, aVF, V4-V6 that appear to be chronic, rate 66 bpm, QTc 425 ms Chest x-ray shows no acute process Labs on admission show WBC 8.92, hemoglobin 13.3, platelet count 306, INR 1.0, sodium 139, potassium 4.0, bicarb 32, BUN 30, creatinine 1.51, lactic acid 1.7, phosphorus 4.4, magnesium 1.9, NT proBNP 813, troponin I 0.012, TSH 34, free T4 1.21 Serum alcohol less than 10 Patient admitted to internal medicine service Review of systems: Pertinent positives and negatives as discussed in HPI, a complete review of systems was performed and all other systems are negative. Physical examination: Vital signs reviewed General: nontoxic, no distress, appears at stated age Derm: warm, dry, intact Head: atraumatic, normocephalic, symmetric Eyes: EOMI, anicteric sclera Mouth: no lip lesion, mucus membranes moist Cardiovascular: S1 S2 reg, no murmur Lungs: CTA bilateral, no rhonchi, no rales, no accessory muscle use Abdominal: soft, non-tender to palpation Extremities: No cyanosis, clubbing, or pedal edema. Neuro: Alert, Oriented, Gross neurological examination did not reveal any focal deficits. Psych: well appearing, appropriate affect Assessment/Plan: Patient is a 59 year old male with past medical history of coronary artery disease with prior stenting, diabetes mellitus, hypothyroidism status post thyroidectomy presents to the ED with dizziness. Active: #. Obstructive Sleep apnea, noncompliant with CPAP #. Chronic hypercapnic respiratory failure #. Metabolic alkalosis Increased daytime sleepiness Chest xray showed bicarb elevated at 32 Continue supplemental oxygen, currently on 2L oxygen via nasal cannula Continue Duoneb, Solumedrol IV 60 mg Q6HR Obtain viral respiratory panel, ABG Continue telemetry monitoring Pulmonology consulted #. Hypothyroidism secondary to Thyroidectomy Patient was noncompliant with meds for a few months and started taking his meds again a week ago Elevated TSH 34, with normal Free T4 1.21 Continue home med levothyroxine 200 mcg p.o. daily Follow up with primary care provider Repeat labs in 4-6 weeks #. Acute kidney injury, nonoliguric Elevated creatinine 1.51, BUN 30, GFR 50 Continue 0.9 normal saline 130 mL/h Obtain abdomen bladder ultrasound Obtain UA Monitor BMP #. Nausea and vomiting Continue Ondansetron 4 mg IVP Q8HR PRN Chronic: #. History of CAD with prior stenting #. Hyperlipidemia #. Type 2 diabetes mellitus Continue aspirin 81 mg p.o. twice daily, Zetia 10 mg p.o. daily, Lipitor, metoprolol. Insulin sliding scale Resume home meds once dose confirmed by the pharmacy F: 0.9 normal saline at 130 mL/h E: Replete as required N: Heart healthy diet DVT prophylaxis: Heparin 5000 units SQ every 8 hours GI prophylaxis: Pantoprazole 40 mg p.o. daily The patient is admitted with an anticipated less than 2 midnight stay for evaluation of dizziness CODE STATUS: Full code Discussed with: Patient Anticipated discharge place: Pending clinical course Dictation was produced using [employer] dictation software. please excuse any grammatical, word or spelling errors. Clyde Soto MD PGY-1 IM I have seen and evaluated the patient today. I Discussed the case with the resident and agree with the resident's findings I edited the assessment and plan as necessary as documented in the resident's note. Past Medical History Past Medical History: Coronary Artery Disease (CAD), Diabetes Mellitus, Thyroid Disorder History of Any Multi-Drug Resistant Organisms: None Reported Past Surgical History: Heart Catheterization With Stent Additional Past Surgical History / Comment(s): thyoidectomy Past Psychological History: No Psychological Hx Reported Smoking Status: Current every day smoker Past Alcohol Use History: None Reported Past Drug Use History: None Reported Medications and Allergies Home Medications Medication Instructions Recorded Confirmed Type Aspirin EC [Ecotrin Low Dose] 81 mg PO BID 09/08/24 09/08/24 History Ezetimibe [Zetia] 10 mg PO DIRECTED 09/08/24 09/08/24 History Levothyroxine Sodium 200 mcg PO DAILY #30 tab 09/08/24 Rx Lipitor (Unknown Strength) 1 dose PO DIRECTED 09/08/24 09/08/24 History Metoprolol Succinate (Unknown 1 dose PO DIRECTED 09/08/24 09/08/24 History Strength) metFORMIN HCL 500 mg PO DAILY 09/08/24 09/08/24 History Allergies Allergy/AdvReac Type Severity Reaction Status Date / Time No Known Allergies Allergy Verified 09/13/24 21:39 Physical Exam Vitals: Vital Signs Temp Pulse Resp BP Pulse Ox 09/14/24 01:19 61 16 156/89 96 09/13/24 23:31 65 18 152/82 98 09/13/24 22:47 63 16 150/82 97 09/13/24 21:54 97.7 F 65 154/79 96 09/13/24 21:34 98.0 F 67 19 171/79 92 L Intake and Output 09/13/24 09/13/24 09/14/24 14:59 22:59 06:59 Other: Weight 106.594 kg Results CBC & Chem 7: 09/13/24 22:46 09/13/24 22:46 Labs: Abnormal Lab Results - Last 24 Hours (Table) 09/13/24 09/13/24 Range/Units 22:46 22:46 RBC 4.16 L (4.40-5.60) 10*6/uL Hct 39.3 L (39.6-50.0) % Eosinophils # 0.50 H (0.04-0.35) 10*3/uL Basophils # 0.12 H (0.00-0.10) 10*3/uL Carbon Dioxide 32 H (22-30) mmol/L BUN 30 H (9-20) mg/dL Creatinine 1.51 H (0.66-1.25) mg/dL Glucose 137 H (74-99) mg/dL TSH 34.000 H (0.465-4.680) mIU/L
[2024-09-14] MEDS ORDERED: DEXTROSE 50% SYRINGE 50 ML IVP PRN ×2 (03:33)
[2024-09-14 03:40] LABS: Influenza A Not Detected (Not Detectd); Influenza B Not Detected (Not Detectd); RSV Not Detected (Not Detectd)
[2024-09-14 03:43] LABS: Glucose,Whole Blood 125 mg/dL (70-110)
--- NOTE | 2024-09-14 03:56 | XR ---
EXAM: XR Chest, 1 View CLINICAL HISTORY: ITS.REASON XR Reason: sob TECHNIQUE: Frontal view of the chest. COMPARISON: No relevant prior studies available. FINDINGS: Lungs: Unremarkable. No consolidation. Pleural space: Unremarkable. No pneumothorax. Heart: Unremarkable. No cardiomegaly. Mediastinum: Unremarkable. Bones/joints: Unremarkable. IMPRESSION: No consolidation.
[2024-09-14 05:01] LABS: HCT 40.4 % (39.6-50.0); HGB 13.5 g/dL (13.0-17.0); MCHC 33.4 g/dL (32.0-37.0); MCV 95.7 fL (80.0-97.0); Mean Platelet Volume 10.7 fL (9.5-12.2); Platelet Count 320 10*3/uL (140-440); RBC 4.22 10*6/uL (4.40-5.60); RDW 13.1 % (11.5-14.5); WBC 8.65 10*3/uL (4.50-10.00)
[2024-09-14 05:39] LABS: African American GFR (CKD) 66 (>60 ml/min/1.73 sqM); Anion Gap 6 mmol/L; Blood Urea Nitrogen 29 mg/dL (9-20); Calcium 9.6 mg/dL (8.4-10.2); Carbon Dioxide 29 mmol/L (22-30); Chloride 103 mmol/L (98-107); Glucose 125 mg/dL (74-99); Non-African American GFR(CKD) 57 (>60 ml/min/1.73 sqM); Potassium 4.3 mmol/L (3.5-5.1); Sodium 138 mmol/L (137-145)
[2024-09-14] MEDS: methylPREDNISolone SOD SUCCI 125 MG/2 ML VIAL IV SCH (05:47)
--- NOTE | 2024-09-14 06:45 | P.CNPUL ---
History of Present Illness Consult date: 09/14/24 Requesting physician: James Godwin Reason for consult: obstructive sleep apnea Chief complaint: Increased sleepiness History of present illness: Is a 59-year-old male with past medical history significant for sleep apnea and noncompliant with CPAP, hypothyroidism, hyperlipidemia, type 2 diabetes mellitus, CAD with previous PCI/stent. Primary care provider is reportedly Dr. Schaefer. Presented to emergency department late last night with chief complaint of increased lethargy and sleepiness. Reportedly falling asleep at inappropriate times. Possible concern for syncope. Workup in the emergency department including a chest x-ray which did not show any acute cardiopulmonary process. CBC fairly unremarkable, WBC count 8.9, hemoglobin 13.3, platelets 306. CMP: Sodium 139, potassium 4, chloride 99, serum bicarb 32, BUN 30, creatinine 1.51, glucose 137. LFTs not elevated. Troponin 0.012. NT proBNP 813. TSH 34. Free T4 1.21. Previously noncompliant with his thyroid medica tion. He has history of thyroidectomy. Of note, had an ER visit back on 09/08/2024 for generalized swelling. TSH was greater than 100, free T4 0.1. Patient has since resumed his Synthroid. Serum alcohol level less than 10. Viral screen negative for influenza A/B, RSV, COVID. Evaluated on the general medical floor. Currently on BiPAP with settings 12/6 and FiO2 40%. Only achieving tidal volumes around 150-200. Inspiratory pressure augmented to 16. Despite this, able to arouse. Able to carry out conversations, but will fall asleep without continuous verbal stimuli. Denies documented history of COPD. He does smoke approximately 1/4 pack of cigarettes per day. Denies shortness of breath, change in cough, sputum production, fevers or chills, sick contacts. Does have history of obstructive sleep apnea, however, has not had his CPAP in over 2 years. Reportedly moved from [place] and left it at his previous residence. Reports excessive daytime sleepiness. Has not been sleeping well at night. Has been falling asleep at inappropriate times, such as during conversation. Also endorses some generalized swelling. Denies history of heart failure. Denies chest pain, heart palpitations, or actual syncopal events. Current vital signs: Temperature 97.4 F, heart rate 63 bpm, blood pressure 150/82 mmHg, nontachypneic, SpO2 recorded at 96% on the above-mentioned BiPAP settings. Review of Systems Constitutional: Reports daytime sleepiness, Reports fatigue, Reports lethargy, Reports weight gain, Denies chills, Denies fever, Denies night sweats, Denies poor appetite, Denies sweats, Denies weight loss Ears, nose, mouth and throat: Denies headache, Denies nasal congestion, Denies nasal discharge, Denies post-nasal drip, Denies sinus pain, Denies sinus pressure, Denies sore throat Cardiovascular: Reports leg edema, Denies chest pain, Denies dyspnea on exertion, Denies lightheadedness, Denies orthopnea, Denies palpitations, Denies paroxysmal nocturnal dyspnea, Denies shortness of breath Respiratory: Reports sleep apnea, Denies congestion, Denies cough, Denies cough with sputum, Denies dyspnea, Denies hemoptysis, Denies wheezing Gastrointestinal: Denies abdominal pain, Denies constipation, Denies diarrhea, Denies nausea, Denies vomiting Genitourinary: Denies dysuria Musculoskeletal: Denies limitation of motion Integumentary: Reports dryness, Denies rash, Denies unusual bruising Neurological: Reports memory loss, Reports weakness, Denies head injury, Denies headaches, Denies numbness, Denies paralysis, Denies seizures, Denies syncope, Denies tremors, Denies visual changes Psychiatric: Denies anxiety, Denies depression Endocrine: Reports fatigue, Denies cold intolerance, Denies deepening of the voice, Denies palpitations Past Medical History Past Medical History: Coronary Artery Disease (CAD), Diabetes Mellitus, Thyroid Disorder History of Any Multi-Drug Resistant Organisms: None Reported Past Surgical History: Heart Catheterization With Stent Additional Past Surgical History / Comment(s): thyoidectomy Past Psychological History: No Psychological Hx Reported Smoking Status: Current every day smoker Past Alcohol Use History: None Reported Past Drug Use History: None Reported Medications and Allergies Home Medications Medication Instructions Recorded Confirmed Type Aspirin EC [Ecotrin Low Dose] 81 mg PO BID 09/08/24 09/08/24 History Ezetimibe [Zetia] 10 mg PO DIRECTED 09/08/24 09/08/24 History Levothyroxine Sodium 200 mcg PO DAILY #30 tab 09/08/24 Rx Lipitor (Unknown Strength) 1 dose PO DIRECTED 09/08/24 09/08/24 History Metoprolol Succinate (Unknown 1 dose PO DIRECTED 09/08/24 09/08/24 History Strength) metFORMIN HCL 500 mg PO DAILY 09/08/24 09/08/24 History Allergies Allergy/AdvReac Type Severity Reaction Status Date / Time No Known Allergies Allergy Verified 09/13/24 21:39 Physical Exam Vitals: Vital Signs Temp Pulse Pulse Resp BP BP Pulse Ox 09/14/24 05:02 97.4 F L 63 14 150/82 96 09/14/24 04:45 09/14/24 04:06 98.0 F 62 16 141/93 98 09/14/24 03:36 09/14/24 03:30 98.0 F 62 16 127/82 95 09/14/24 02:44 68 09/14/24 02:31 64 09/14/24 02:30 62 20 161/90 99 09/14/24 01:19 61 16 156/89 96 09/13/24 23:31 65 18 152/82 98 09/13/24 22:47 63 16 150/82 97 09/13/24 21:54 97.7 F 65 154/79 96 09/13/24 21:34 98.0 F 67 19 171/79 92 L FiO2 09/14/24 05:02 09/14/24 04:45 40 09/14/24 04:06 09/14/24 03:36 40 09/14/24 03:30 09/14/24 02:44 09/14/24 02:31 09/14/24 02:30 09/14/24 01:19 09/13/24 23:31 09/13/24 22:47 09/13/24 21:54 09/13/24 21:34 Intake and Output 09/13/24 09/13/24 09/14/24 14:59 22:59 06:59 Intake Total 540 Output Total 500 Balance 40 Intake: Oral 540 Output: Urine 500 Other: Weight 106.594 kg GENERAL EXAM: Lethargic obese 59-year-old male, currently on BiPAP, will awaken and answer questions appropriately, then falls back asleep with continuous verbal stimuli HEAD: Normocephalic and atraumatic EYES: Normal reaction of pupils, equal size. NOSE: Clear with pink turbinates. THROAT: No erythema or exudates. NECK: No masses, no JVD. CHEST: No chest wall deformity. LUNGS: Equal air entry with no crackles, wheeze, rhonchi or dullness. Currently on BiPAP with settings 16/6 and FiO2 40%. Now achieving tidal volumes around 300. Respiratory rate nontachypneic or labored. CVS: S1 and S2 normal with no audible murmur, soft systolic rhythm. No other extra heart sounds ABDOMEN: No hepatosplenomegaly, active bowel sounds, no guarding or rigidity. SPINE: No scoliosis or deformity SKIN: No rashes CENTRAL NERVOUS SYSTEM: Lethargic, no focal deficits, tone is normal in all 4 extremities. EXTREMITIES: There is bilateral 1+ lower extremity pitting edema. No clubbing or cyanosis. Peripheral pulses are intact. Results - Laboratory Findings CBC and BMP: 09/14/24 04:25 09/14/24 04:25 PT/INR, D-dimer PT 11.2 sec (10.0-12.5) 09/13/24 22:46 INR 1.0 (<1.2) 09/13/24 22:46 Abnormal lab findings: Abnormal Labs 09/13/24 09/13/24 09/14/24 22:46 22:46 03:42 RBC 4.16 L Hct 39.3 L Eosinophils # 0.50 H Basophils # 0.12 H Carbon Dioxide 32 H BUN 30 H Creatinine 1.51 H Glucose 137 H POC Glucose (mg/dL) 125 H TSH 34.000 H 09/14/24 04:25 RBC 4.22 L Hct Eosinophils # Basophils # Carbon Dioxide BUN Creatinine Glucose POC Glucose (mg/dL) TSH - Diagnostic Findings Chest x-ray: image reviewed Assessment and Plan Assessment: Altered mental status, rule out hypercapnic encephalopathy Metabolic alkalosis Current ongoing tobacco dependence, reportedly 1/4 pack/day smoker Possible underlying COPD History of sleep apnea syndrome, previously lost his CPAP machine Acute kidney injury Primary hypothyroidism, with previous history of thyroidectomy, patient has since resumed his Synthroid, with improvement in his TSH and free T4 Medication noncompliance Diabetes mellitus, type II Hypertension Hyperlipidemia History of CAD with previous PCI/stents Obesity, with a BMI of 30.2 kg/m Plan: Continue on BiPAP, IPAP augmented to 16/6 and FiO2 is currently set at 40% Previously started on combination of Duonebs and IV Solumedrol Obtain ABG Smoking cessation counseling performed Nicotine replacement offered Educated on the importance of medication compliance Recommended outpatient evaluation with full PFT and sleep study Cardiology also consulted on the case I have personally seen and examined the patient, performed the documentation and the assessment and plan as written. Number of minutes spent on the visit:20 This dictation was produced using [employer] dictation software please excuse grammatical errors Time with Patient: Greater than 30
[2024-09-14 07:47] LABS: Glucose,Whole Blood 152 mg/dL (70-110)
[2024-09-14] MEDS: IPRATROPIUM-ALBUTEROL 3 ML NEB INHALATION PRN (07:58)
--- NOTE | 2024-09-14 08:13 | US ---
EXAMINATION TYPE: US kidneys/renal and bladder DATE OF EXAM: 09/14/2024 COMPARISON: US(12/20/2021) CLINICAL INDICATION: Male, 59 years old with history of MARJORIE; TECHNIQUE: Grayscale imaging of the bilateral kidneys and urinary bladder: FINDINGS: EXAM MEASUREMENTS: Right Kidney: 10.2x4.9x6.7 cm Left Kidney: 13.2x5.9x5.3 cm limited exam due to overlying bowel & pt unable to sit still Right Kidney: slightly limited views due to overlying bowel, wnl as best seen Left Kidney: slightly limited views due to rib shadow & overlying bowel, wnl as best seen Bladder: wnl Bilateral Jets seen: limited, pt was unable to sit still in and out of sleep There is no evidence for hydronephrosis at this point in time. No nephrolithiasis is seen. No mayra s are identified. Corticomedullary differentiation is maintained bilaterally. The urinary bladder is anechoic. Increased echogenicity of the visualized liver. IMPRESSION: 1. No hydronephrosis or nephrolithiasis. 2. Hepatic steatosis. [facility], , 09/14/2024 8:11 AM
[2024-09-14] MEDS: PANTOPRAZOLE 40 MG TABLET PO SCH (08:42)
[2024-09-14] MEDS: NICOTINE 21MG/24HR PATCH TRANSDERM SCH (08:42)
[2024-09-14] MEDS: HEPARIN SODIUM,PORCINE 5,000 UNIT/ML 1 ML VIAL SQ SCH (08:42)
[2024-09-14] MEDS: INSULIN LISPRO (HumaLOG) 100 UNIT/ML 10 mL VL SQ SCH (08:43)
[2024-09-14] MEDS ORDERED: PANTOPRAZOLE 40 MG/10 ML VIAL IV SCH (09:00)
[2024-09-14] MEDS: LEVOTHYROXINE IVP 100 MCG/5 ML VIAL IV SCH (09:15)
[2024-09-14] MEDS: SODIUM CHLORIDE 0.9% 1,000 ML IV SCH (10:22)
[2024-09-14] MEDS: LOSARTAN 25 MG TAB PO SCH (11:17)
[2024-09-14] MEDS: FUROSEMIDE 10 MG/ML 4 ML VIAL IV SCH (11:17)
[2024-09-14] MEDS: ASPIRIN 81 MG PO SCH (11:18)
[2024-09-14 12:06] LABS: Glucose,Whole Blood 200 mg/dL (70-110)
[2024-09-14 12:09] LABS: Appearance,Urine Clear (Clear); Bilirubin,Urine Negative (Negative); Blood,Urine Small (Negative); Color,Urine Colorless; Glucose,Urine (UA) 4+ (Negative); Ketones,Urine Negative (Negative); Leukocyte Esterase,Urine Negative (Negative); Nitrite,Urine Negative (Negative); Protein,Urine Negative (Negative); RBC,Urine 5 /hpf (0-5); Specific Gravity,Urine 1.026 (1.001-1.035); Urobilinogen,Urine <2.0 mg/dL (<2.0); WBC,Urine <1 /hpf (0-5)
--- NOTE | 2024-09-14 12:24 | P.CRDCN ---
History of Present Illness Consult date: 09/14/24 Reason for Consult (text): Syncope History of present illness: This is a 59-year-old male patient Suzanne, last seen in the office on 09/12/19 23, with past medical history of hypertension, hyperlipidemia, coronary artery disease with prior PCI of the LAD in May 2019 at [facility], ADHD, prior tobacco use and dependence. We have been asked to evaluate the patient for syncope. Patient is a poor historian. 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 He states he ran out of some of his medications but he thinks he has been taking metoprolol and metformin. 2 days ago he noticed that he had significant edema to his hands and feet. He also developed weakness and confusion and apparently had syncopal or near syncopal episodedetails are not available. Patient came into the hospital for further evaluation. Blood pressure 131/67, heart rate in the 60s, pulse ox 100% on BiPAP. Patient has been seen by pulmonary medicine and has been ordered for transfer to [facility] due to continuous BiPAP need. Patient has been afebrile. He is status post 1 L of IV fluids as well as started on nebulizer treatments and IV steroids. -EKG: Sinus rhythm with new T wave inversion inferolateral leads -Chest x-ray: No consolidation. -Renal ultrasound reveals no hydronephrosis, no nephrolithiasis. Hepatic steatosis. -Laboratory studies: WBC 8.6, hemoglobin 13.5. Initial BUN 30 repeat 29, creatinine 1.51 and repeat 1.35. Troponin negative x 1. proBNP 813. TSH 34 and normal free T4 of 1.21. Cepheid viral panel not detected. Serum alcohol less than 10. Urinalysis glucose 4+ and blood small. -Home cardiac medications: Patient has been noncompliant with his medications. -Lexiscan Cardiolite stress test performed in the office on 05/27/2022: Fixed lateral perfusion defect consistent with prior PA in the circumflex territory. No reversible myocardial perfusion defects to suggest ischemia. Normal left ventricular EF 55% with anterior lateral hypokinesis. -Echocardiogram performed in the office on 05/19/2022 revealed EF 45%. Small hypokinetic area in the inferior wall at the base. Grade 1 diastolic dysfunction. Moderate left ventricular hypertrophy. Trileaflet aortic valve. Trace mitral regurgitation. Mild tricuspid regurgitation. Normal pulmonary artery systolic pressure. Review Of Systems: At the time of my exam: Unable to obtain from patient due to confusion Physical examination: Gen: This is a 59-year-old male in no acute distress. VS: reviewed HEENT: Head is atraumatic, normocephalic. Pupils equal, round. Sclerae is anicteric. NECK: Supple. No JVD. LUNGS: Clear to auscultation. No wheezes or rhonchi. No intercostal retrac tions. HEART: Regular rate and rhythm. No murmur. ABDOMEN: Soft No tenderness. EXTREMITIES: 1+ bilateral lower extremity edema. No calf tenderness. NEUROLOGICAL: Patient is awake, and confused. Assessment: Syncopal episode or possible near syncopal episode-unable to obtain details from the patient Altered mental status, probable hypercapnic encephalopathy Acute systolic heart failure Ischemic cardiomyopathy with previous EF of 45% Abnormal EKG with new T wave inversions History of coronary artery disease with previous stent to the LAD in 2019 performed at [facility] Acute kidney injury Metabolic alkalosis Possible underlying COPD Obstructive sleep apnea and not utilizing CPAP machine Hypothyroidism with previous thyroidectomy Diabetes mellitus type II Hypertension Hyperlipidemia, patient was previously taken off Lipitor due to muscle aches and fatigue Obesity with a BMI of 30 Tobacco use and dependence-patient may have quit smoking Noncompliance with follow-up appointments and not taking medications ADHD Plan: Start patient on aspirin 81 mg daily, atorvastatin 40 mg at bedtime, losartan 25 mg daily Start patient on Lasix 40 mg IV daily Monitor STELLA, daily weights, electrolytes and renal function Obtain 2-D echocardiogram and Doppler study to assess cardiac structure and function Further recommendations to follow based upon clinical course Thank you kindly for this consultation. Nurse practitioner note has been reviewed, I agree with documented findings and plan of care. Patient was seen and examined. Past Medical History Past Medical History: Coronary Artery Disease (CAD), Diabetes Mellitus, Thyroid Disorder Additional Past Medical History / Comment(s): Pt is very somnolent, did History of Any Multi-Drug Resistant Organisms: None Reported Past Surgical History: Heart Catheterization With Stent Additional Past Surgical History / Comment(s): thyoidectomy Date of Last Stent Placement:: unknown Past Psychological History: No Psychological Hx Reported Smoking Status: Current every day smoker Past Alcohol Use History: None Reported Past Drug Use History: None Reported Medications and Allergies Home Medications Medication Instructions Recorded Confirmed Type Aspirin EC [Ecotrin Low Dose] 81 mg PO BID 09/08/24 09/14/24 History Levothyroxine Sodium 200 mcg PO DAILY #30 tab 09/08/24 09/14/24 Rx metFORMIN HCL 500 mg PO DAILY 09/08/24 09/14/24 History Dorzolamide-Timol 2.23%/0.68% 1 drop LEFT EYE BID 09/14/24 09/14/24 History [Cosopt] Allergies Allergy/AdvReac Type Severity Reaction Status Date / Time No Known Allergies Allergy Verified 09/14/24 09:57 Physical Exam Vitals: Vital Signs Temp Pulse Pulse Resp BP BP Pulse Ox 09/14/24 08:10 67 09/14/24 08:03 09/14/24 08:00 64 09/14/24 07:42 97.4 F L 64 20 131/67 100 09/14/24 05:02 97.4 F L 63 14 150/82 96 09/14/24 04:45 09/14/24 04:06 98.0 F 62 16 141/93 98 09/14/24 03:36 09/14/24 03:30 98.0 F 62 16 127/82 95 09/14/24 02:44 68 09/14/24 02:31 64 09/14/24 02:30 62 20 161/90 99 09/14/24 01:19 61 16 156/89 96 09/13/24 23:31 65 18 152/82 98 09/13/24 22:47 63 16 150/82 97 09/13/24 21:54 97.7 F 65 154/79 96 09/13/24 21:34 98.0 F 67 19 171/79 92 L FiO2 09/14/24 08:10 09/14/24 08:03 40 09/14/24 08:00 09/14/24 07:42 09/14/24 05:02 09/14/24 04:45 40 09/14/24 04:06 09/14/24 03:36 40 09/14/24 03:30 09/14/24 02:44 09/14/24 02:31 09/14/24 02:30 09/14/24 01:19 09/13/24 23:31 09/13/24 22:47 09/13/24 21:54 09/13/24 21:34 Intake and Output 09/13/24 09/14/24 09/14/24 22:59 06:59 14:59 Intake Total 540 Output Total 500 Balance 40 Intake: Oral 540 Output: Urine 500 Other: # Voids 0 # Bowel Movements 0 Weight 106.594 kg 106.594 kg Results 09/14/24 04:25 09/14/24 04:25 Cardiac Enzymes 09/13/24 09/13/24 Range/Units 22:46 22:46 AST 38 (17-59) U/L Troponin I 0.012 (0.000-0.034) ng/mL Coagulation 09/13/24 Range/Units 22:46 PT 11.2 (10.0-12.5) sec APTT 25.4 (22.0-30.0) sec CBC 09/13/24 09/14/24 Range/Units 22:46 04:25 WBC 8.92 8.65 (4.50-10.00) 10*3/uL RBC 4.16 L 4.22 L (4.40-5.60) 10*6/uL Hgb 13.3 13.5 (13.0-17.0) g/dL Hct 39.3 L 40.4 (39.6-50.0) % Plt Count 306 320 (140-440) 10*3/uL Comprehensive Metabolic Panel 09/13/24 09/14/24 Range/Units 22:46 04:25 Sodium 139 138 (137-145) mmol/L Potassium 4.0 4.3 (3.5-5.1) mmol/L Chloride 99 103 (98-107) mmol/L Carbon Dioxide 32 H 29 (22-30) mmol/L BUN 30 H 29 H (9-20) mg/dL Creatinine 1.51 H 1.35 H (0.66-1.25) mg/dL Glucose 137 H 125 H (74-99) mg/dL Calcium 10.1 9.6 (8.4-10.2) mg/dL AST 38 (17-59) U/L ALT 45 (4-49) U/L Alkaline Phosphatase 53 (38-126) U/L Total Protein 7.0 (6.3-8.2) g/dL Albumin 4.2 (3.5-5.0) g/dL Current Medications Generic Name Dose Route Start Last Admin Trade Name Freq PRN Reason Stop Dose Admin Albuterol/Ipratropium 3 ml 09/14/24 02:08 09/14/24 07:58 Ipratropium-Albuterol 3 Ml Neb INHALATION 3 ml RT-TID PRN Administration Shortness Of Breath Or Wheezing Budesonide/Formoterol Fumarate 2 puff 09/14/24 20:00 Symbicort 160-4.5 Mcg Inhaler INHALATION RT-BID SACHIN Dextrose/Water 25 ml 09/14/24 03:33 Dextrose 50% Syringe 50 Ml IVP PER PROTOCOL PRN Hypoglycemia Protocol Dextrose/Water 50 ml 09/14/24 03:33 Dextrose 50% Syringe 50 Ml IVP PER PROTOCOL PRN Hypoglycemia Protocol Heparin Sodium (Porcine) 5,000 unit 09/14/24 08:00 09/14/24 08:42 Heparin Sodium,Porcine 5,000 Unit/Ml 1 Ml Vial SQ 5,000 unit Q8HR SCAHIN Administration Sodium Chloride 1,000 mls @ 75 mls/hr 09/13/24 22:30 09/14/24 05:48 Saline 0.9% IV 130 mls/hr .[id number] SACHIN Administration Insulin Human Lispro 0 unit 09/14/24 07:30 09/14/24 08:43 Insulin Lispro (Humalog) 100 Unit/Ml 10 Ml Vl SQ 2 unit ACHS SACHIN Administration Protocol Levothyroxine Sodium 175 mcg 09/14/24 09:00 Levothyroxine Ivp 100 Mcg/5 Ml Vial IV DAILY SACHIN Methylprednisolone Sodium Succinate 60 mg 09/14/24 06:00 09/14/24 05:47 Methylprednisolone Sod Succi 125 Mg/2 Ml Vial IV 60 mg Q6HR SACHIN Administration Naloxone HCl 0.2 mg 09/14/24 02:08 Naloxone 0.4 Mg/Ml 1 Ml Vial IV Q2M PRN Opioid Reversal Nicotine 1 patch 09/14/24 09:00 09/14/24 08:42 Nicotine 21mg/24hr Patch TRANSDERM 1 patch DAILY SACHIN Administration Ondansetron HCl 4 mg 09/14/24 02:08 Ondansetron 4 Mg/2 Ml Vial IVP Q8HR PRN Nausea And Vomiting Pantoprazole Sodium 40 mg 09/14/24 07:30 09/14/24 08:42 Pantoprazole 40 Mg Tablet PO 40 mg [id number] SACHIN Administration Intake and Output 09/13/24 09/14/24 09/14/24 22:59 06:59 14:59 Intake Total 540 Output Total 500 Balance 40 Intake: Oral 540 Output: Urine 500 Other: # Voids 0 # Bowel Movements 0 Weight 106.594 kg 106.594 kg 09/14/24 04:25 09/14/24 04:25
[2024-09-14 16:34] LABS: Glucose,Whole Blood 161 mg/dL (70-110)
[2024-09-14 20:05] LABS: Glucose,Whole Blood 248 mg/dL (70-110)
[2024-09-14] MEDS: ATORVASTATIN 40 MG TAB PO SCH (20:20)
[2024-09-14] MEDS: DOCUSATE 100 MG CAP PO PRN (20:22)
[2024-09-14] MEDS: SYMBICORT 160-4.5 MCG INHALER INHALATION SCH (20:45)
[2024-09-15 06:12] LABS: Glucose,Whole Blood 203 mg/dL (70-110)
[2024-09-15 06:57] LABS: Basophils # (A) 0.02 10*3/uL (0.00-0.10); Basophils % (A) 0.2 %; HCT 38.7 % (39.6-50.0); HGB 12.9 g/dL (13.0-17.0); Lymphocytes # (A) 1.03 10*3/uL (0.90-5.00); Lymphocytes % (A) 7.8 %; MCH 31.5 pg (27.0-32.0); MCHC 33.3 g/dL (32.0-37.0); MCV 94.6 fL (80.0-97.0); Mean Platelet Volume 10.7 fL (9.5-12.2); Monocytes # (A) 0.34 10*3/uL (0.20-1.00); Monocytes % (A) 2.6 %; Neutrophils # (A) 11.82 10*3/uL (1.80-7.70); Platelet Count 335 10*3/uL (140-440); RBC 4.09 10*6/uL (4.40-5.60); WBC 13.26 10*3/uL (4.50-10.00)
[2024-09-15 07:03] LABS: ALT 44 U/L (4-49); AST 29 U/L (17-59); African American GFR (CKD) 66 (>60 ml/min/1.73 sqM); Albumin 4.1 g/dL (3.5-5.0); Alkaline Phosphatase 54 U/L (38-126); Anion Gap 7 mmol/L; Blood Urea Nitrogen 29 mg/dL (9-20); Calcium 9.4 mg/dL (8.4-10.2); Carbon Dioxide 28 mmol/L (22-30); Chloride 101 mmol/L (98-107); Glucose 184 mg/dL (74-99); Non-African American GFR(CKD) 57 (>60 ml/min/1.73 sqM); Phosphorus 3.5 mg/dL (2.5-4.5); Potassium 4.2 mmol/L (3.5-5.1); Sodium 136 mmol/L (137-145); Total Bilirubin 0.4 mg/dL (0.2-1.3); Total Protein 6.9 g/dL (6.3-8.2)
[2024-09-15] MEDS: LEVOTHYROXINE 100 MCG TAB PO SCH (09:02)
--- NOTE | 2024-09-15 11:05 | P.PN ---
Subjective Progress Note Date: 09/15/24 Principal diagnosis: Respiratory failure. Is a 59-year-old male with past medical history significant for sleep apnea and noncompliant with CPAP, hypothyroidism, hyperlipidemia, type 2 diabetes mellitus, CAD with previous PCI/stent. Primary care provider is reportedly Dr. Schaefer. Presented to emergency department late last night with chief complaint of increased lethargy and sleepiness. Reportedly falling asleep at inappropriate times. Possible concern for syncope. Workup in the emergency department including a chest x-ray which did not show any acute cardiopulmonary process. CBC fairly unremarkable, WBC count 8.9, hemoglobin 13.3, platelets 306. CMP: Sodium 139, potassium 4, chloride 99, serum bicarb 32, BUN 30, creatinine 1.51, glucose 137. LFTs not elevated. Troponin 0.012. NT proBNP 813. TSH 34. Free T4 1.21. Previously noncompliant with his thyroid me dication. He has history of thyroidectomy. Of note, had an ER visit back on 09/08/2024 for generalized swelling. TSH was greater than 100, free T4 0.1. Patient has since resumed his Synthroid. Serum alcohol level less than 10. Viral screen negative for influenza A/B, RSV, COVID. Evaluated on the general medical floor. Currently on BiPAP with settings 12/6 and FiO2 40%. Only achieving tidal volumes around 150-200. Inspiratory pressure augmented to 16. Despite this, able to arouse. Able to carry out conversations, but will fall asleep without continuous verbal stimuli. Denies documented history of COPD. He does smoke approximately 1/4 pack of cigarettes per day. Denies shortness of breath, change in cough, sputum production, fevers or chills, sick contacts. Does have history of obstructive sleep apnea, however, has not had his CPAP in over 2 years. Reportedly moved from [place] and left it at his previous residence. Reports excessive daytime sleepiness. Has not been sleeping well at night. Has been falling asleep at inappropriate times, such as during conversation. Also endorses some generalized swelling. Denies history of heart failure. Denies chest pain, heart palpitations, or actual syncopal events. Current vital signs: Temperature 97.4 F, heart rate 63 bpm, blood pressure 150/82 mmHg, nontachypneic, SpO2 recorded at 96% on the above-mentioned BiPAP settings. Progress note dated September 15, 2024. 59-year-old male seen today in room 366. He is sitting upright in his chair, next to the hospital bed. The patient continues on nasal O2 at 4 L. He did use BiPAP last night, with settings of 12/6, and 40%. He is not receiving any IV fluids. His daughter was on the phone talking to him. Current white count 13.3, hemoglobin 12.9, hematocrit 38.7, and platelet count 335,000. Sodium 136, potassium 4.2, chlorides 101, CO2 28, BUN 29, and creatinine 1.35. Glucose is 184. Hemoglobin A1c is 7.4. Ultrasound of the abdomen and pelvic area, shows no evidence of hydronephrosis or nephrolithiasis. There is hepatic steatosis. Clinically, the patient is doing much better. His breathing is much improved. He feels much better. We did chromosomal disorders counselor him about the importance of him taking his medications as prescribed. Objective - Vital Signs Vital signs: Vital Signs Temp 98.2 F 09/15/24 07:28 Pulse 78 09/15/24 07:28 Resp 16 09/15/24 08:00 BP 153/80 09/15/24 07:28 Pulse Ox 97 09/15/24 08:43 FiO2 40 09/15/24 04:08 Intake & Output 09/14/24 09/15/24 09/15/24 18:59 06:59 18:59 Intake Total 180 Balance 180 Weight 121.5 kg Intake: Oral 180 Other: Voiding Method Toilet Toilet - Exam No acute distress, oriented 3. Currently HEENT examination is grossly unremarkable. Mucous membranes are moist. No oral lesions. Neck supple. Full range of motion. No adenopathy thyromegaly or neck vein distention. Cardiovascular examination reveals regular rhythm rate. S1-S2 normal. No S3 or S4. No discernible murmur noted. Lungs reveal scattered bilateral rhonchi, heard on exhalation. No wheezes. No crackles. Breath sounds are equal bilaterally. Abdomen soft bowel sounds are heard. No masses or tenderness. Extremities are intact. No cyanosis clubbing or edema. Skin is without rash or lesion. Neurologic examination is brief but nonfocal. - Labs CBC & Chem 7: 09/15/24 06:15 09/15/24 06:15 Labs: Abnormal Lab Results - Last 24 Hours (Table) 09/14/24 09/14/24 09/14/24 Range/Units 11:48 12:05 16:32 WBC (4.50-10.00) 10*3/uL RBC (4.40-5.60) 10*6/uL Hgb (13.0-17.0) g/dL Hct (39.6-50.0) % Immature Gran # (0.00-0.04) 10*3/uL Neutrophils # (1.80-7.70) 10*3/uL Eosinophils # (0.04-0.35) 10*3/uL Sodium (137-145) mmol/L BUN (9-20) mg/dL Creatinine (0.66-1.25) mg/dL Glucose (74-99) mg/dL POC Glucose (mg/dL) 200 H 161 H (70-110) mg/dL Hemoglobin A1c (<=6.0) % Urine Glucose (UA) 4+ H (Negative) Urine Blood Small H (Negative) 09/14/24 09/15/24 09/15/24 Range/Units 20:04 06:08 06:15 WBC (4.50-10.00) 10*3/uL RBC (4.40-5.60) 10*6/uL Hgb (13.0-17.0) g/dL Hct (39.6-50.0) % Immature Gran # (0.00-0.04) 10*3/uL Neutrophils # (1.80-7.70) 10*3/uL Eosinophils # (0.04-0.35) 10*3/uL Sodium (137-145) mmol/L BUN (9-20) mg/dL Creatinine (0.66-1.25) mg/dL Glucose (74-99) mg/dL POC Glucose (mg/dL) 248 H 203 H (70-110) mg/dL Hemoglobin A1c 7.4 H (<=6.0) % Urine Glucose (UA) (Negative) Urine Blood (Negative) 09/15/24 09/15/24 Range/Units 06:15 06:15 WBC 13.26 H (4.50-10.00) 10*3/uL RBC 4.09 L (4.40-5.60) 10*6/uL Hgb 12.9 L (13.0-17.0) g/dL Hct 38.7 L (39.6-50.0) % Immature Gran # 0.05 H (0.00-0.04) 10*3/uL Neutrophils # 11.82 H (1.80-7.70) 10*3/uL Eosinophils # 0.00 L (0.04-0.35) 10*3/uL Sodium 136 L (137-145) mmol/L BUN 29 H (9-20) mg/dL Creatinine 1.35 H (0.66-1.25) mg/dL Glucose 184 H (74-99) mg/dL POC Glucose (mg/dL) (70-110) mg/dL Hemoglobin A1c (<=6.0) % Urine Glucose (UA) (Negative) Urine Blood (Negative) Assessment and Plan Assessment: Altered mental status, secondary to hypercapnic encephalopathy. Metabolic alkalosis. Current ongoing tobacco dependence. Probable COPD from chronic tobacco use. History of sleep apnea syndrome, noncompliant with CPAP. Acute kidney injury. Primary hypothyroidism. Medication noncompliance. Diabetes mellitus, type II. Hypertension. Hyperlipidemia. History of CAD with previous PCI/stents. Obesity, with a BMI of 30.2 kg/m. Plan: Plan dated September 15, 2024. The patient is seen today in room 366. The patient appears to be doing much better. He is much more awake and alert. He is currently on 4 L. He did use t he BiPAP device last night. The patient is counseled about the importance of smoking cessation. We also counseled the patient about the importance of using his CPAP, and also about taking his medications. It appears he was not taking his thyroid medications, among other things. His daughter was on the phone, and we spoke freely in front of her about his issues. Labs, x-rays, and medications are reviewed. We will continue to follow make recommendations along the way. Prognosis is guarded. Dictation was produced using [employer] software. Please excuse any grammatical, word or spelling errors. Time with Patient: Less than 30
[2024-09-15 11:35] LABS: Glucose,Whole Blood 246 mg/dL (70-110)
--- NOTE | 2024-09-15 11:40 | P.PN ---
Subjective Progress Note Date: 09/15/24 59 year old male with past medical history of coronary artery disease with prior stenting, diabetes mellitus, hypothyroidism status post thyroidectomy presents to the ED with dizziness. Patient reports experiencing dizziness with multiple black outs. The patient presented to the ED a few days ago with complaint of swelling in his hands and feet along with dyspnea and some chest discomfort on exertion. There was concern for hypothyroidism at that visit as his TSH was more than 100 and free T4 was 0.1. Chest x-ray done showed mild pulmonary edema but no acute cardiopulmonary disease/process. An EKG was also done that showed normal sinus rhythm with a rate of 68 bpm and QTc 444 ms. Patient had stopped taking Synthorid for a few months. He was advised to be compliant with his Synthroid and follow-up with his primary care provider and discharged home. Patient reports going home and having black outs. He reports increased sleepiness. His friends advised him to come to the ED for evaluation. He mentions having SIVAKUMAR diagnosed with a sleep study ordered by his PCP. He has CPAP machine but lately has been non compliant with CPAP. While evaluating in the ED he became hypoxic. Patient also mentions smoking a quarter pack a day, has tried to quit in the past but has been unsuccessful. 09/15 - He is seen and examined at bedside this morning, now on the 3rd floor. He had no acute events overnight, and has no acute complaints this morning. Seen and evaluated cardiology and pulmonology yesterday, and they continue to follow. He did utilize his BiPAP last night with the settings of 12/6 at 40%. Echocardiogram was completed yesterday, however the read is currently pending at this time. REVIEW OF SYSTEMS: Pertinent positives and negatives noted in HPI. Physical Exam: Vital signs reviewed General: nontoxic, no distress, appears at stated age Derm: warm, dry, intact Head: atraumatic, normocephalic, symmetric Eyes: EOMI, anicteric sclera Mouth: no lip lesion, mucus membranes moist Cardiovascular: S1 S2 reg, no murmur Lungs: CTA bilateral, no rhonchi, no rales, no accessory muscle use Abdominal: soft, non-tender to palpation Extremities: No cyanosis, clubbing, BL 1+ pitting edema Neuro: Alert, Oriented, Gross neurological examination did not reveal any focal deficits. Psych: well appearing, appropriate affect Data Received Today: Labs: WBCs 13.26, hemoglobin 12.9, hematocrit 38.7, platelet 335; sodium 136, potassium 4.2, bicarb 28, BUN 29, creatinine 1.35, calcium 9.4, phosphorus 3.5, magnesium 2.0, total bilirubin 0.4, AST 29, ALT 44, alkaline phosphatase 54 Imagining: No new imaging today Assessment and plan Patient is a 59 year old male with past medical history of coronary artery disease with prior stenting, diabetes mellitus, hypothyroidism status post thyroidectomy presents to the ED with dizziness. #Obstructive Sleep apnea, noncompliant with CPAP #Chronic hypercapnic respiratory failure #Metabolic alkalosis, improving #Probable hypercapnic encephalopathy, resolved -Chest xray showed no consolidation -bicarb elevated at 28. Improving -Continue supplemental oxygen, currently on 4L oxygen via nasal cannula -Continue Duoneb, Solumedrol IV 60 mg Q6HR -Cepheid 4 Plex negative -Continue telemetry monitoring -Pulmonology following, recommend outpatient evaluation with full PFT and sleep study -Will discuss with watch case polisher about setting up CPAP on discharge. #Acute on Chronic systolic heart failure #Ischemic cardiomyopathy, previous EF 45% (05/19/2022) #Syncopal episodes likely due to passing out from hypercapnia #History of CAD with previous stent placement to the LAD in 2019 -Continue with aspirin 81 mg daily, Lipitor 40 mg nightly, losartan 25 mg daily -Continue Lasix 40 mg IV daily -Strict I's and O's, daily weights, monitor electrolytes and renal function -Echocardiogram completed, read currently pending -Cardiology following #Hypothyroidism secondary to Thyroidectomy -Patient was noncompliant with meds for a few months and started taking his meds again a week ago -Elevated TSH 34, with normal Free T4 1.21 -Continue home med levothyroxine 200 mcg p.o. daily -Follow up with primary care provider -Discussed the importance of medication compliance -Repeat labs in 4-6 weeks #Acute kidney injury, nonoliguric -Elevated creatinine 1.35, BUN 29, GFR 57 Stable -Continue 0.9 normal saline 130 mL/h -Abdomen/bladder ultrasound showed no evidence of hydronephrosis and no nephrolithiasis, with evidence of hepatic steatosis -UA showed 4+ glucose, however otherwise unremarkable -Monitor BMP #Nausea and vomiting -Continue Ondansetron 4 mg IVP Q8HR PRN #Current ongoing tobacco dependence -Smoking cessation counseling performed -Nicotine 21 mg/24-hour patch daily Chronic: #History of CAD with prior stenting #Hyperlipidemia #Type 2 diabetes mellitus -Continue aspirin 81 mg p.o. twice daily, Zetia 10 mg p.o. daily, Lipitor, metoprolol. Insulin sliding scale -Resume home meds once dose confirmed by the pharmacy DVT ppx: Code status: Full code F: Consistent carbohydrate diet E: Replete as needed N: Heart healthy diet A: Ambulatory Anticipated discharge place: Pending clinical course Anticipated discharge time: Pending clinical course Dictation was produced using [employer] dictation software. please excuse any grammatical, word or spelling errors. Tye Roche MD PGY-1 IM Addending attestation I have seen and evaluated the patient today. Discussed with the resident and agree with the residents finding and plan as documented in the resident's note. Changes highlighted in blue font. Objective - Vital Signs Vital signs: Vital Signs Temp 98.1 F 09/14/24 23:47 Pulse 81 09/15/24 04:35 Resp 19 09/15/24 04:35 BP 150/70 09/15/24 04:35 Pulse Ox 94 L 09/15/24 04:35 FiO2 40 09/15/24 04:08 Intake & Output 09/14/24 09/14/24 09/15/24 06:59 18:59 06:59 Intake Total 540 Output Total 500 Balance 40 Weight 106.594 kg 121.5 kg Intake: Oral 540 Output: Urine 500 Other: Voiding Method Toilet # Voids 0 # Bowel Movements 0 - Labs CBC & Chem 7: 09/15/24 06:15 09/15/24 06:15 Labs: Abnormal Lab Results - Last 24 Hours (Table) 09/14/24 09/14/24 09/14/24 Range/Units 07:46 11:48 12:05 WBC (4.50-10.00) 10*3/uL RBC (4.40-5.60) 10*6/uL Hgb (13.0-17.0) g/dL Hct (39.6-50.0) % Immature Gran # (0.00-0.04) 10*3/uL Neutrophils # (1.80-7.70) 10*3/uL Eosinophils # (0.04-0.35) 10*3/uL POC Glucose (mg/dL) 152 H 200 H (70-110) mg/dL Urine Glucose (UA) 4+ H (Negative) Urine Blood Small H (Negative) 09/14/24 09/14/24 09/15/24 Range/Units 16:32 20:04 06:08 WBC (4.50-10.00) 10*3/uL RBC (4.40-5.60) 10*6/uL Hgb (13.0-17.0) g/dL Hct (39.6-50.0) % Immature Gran # (0.00-0.04) 10*3/uL Neutrophils # (1.80-7.70) 10*3/uL Eosinophils # (0.04-0.35) 10*3/uL POC Glucose (mg/dL) 161 H 248 H 203 H (70-110) mg/dL Urine Glucose (UA) (Negative) Urine Blood (Negative) 09/15/24 Range/Units 06:15 WBC 13.26 H (4.50-10.00) 10*3/uL RBC 4.09 L (4.40-5.60) 10*6/uL Hgb 12.9 L (13.0-17.0) g/dL Hct 38.7 L (39.6-50.0) % Immature Gran # 0.05 H (0.00-0.04) 10*3/uL Neutrophils # 11.82 H (1.80-7.70) 10*3/uL Eosinophils # 0.00 L (0.04-0.35) 10*3/uL POC Glucose (mg/dL) (70-110) mg/dL Urine Glucose (UA) (Negative) Urine Blood (Negative)
--- NOTE | 2024-09-15 13:08 | CA ---
Transthoracic Echo Report Name: Gerson Finn Age: 59 Gender: M : 1965 Exam Date: 09/14/2024 14:13 Exam Location: [facility] Ht (in): 74 Wt (lb): 235 Ordering Physician: Nghia Luna MD Attending/Referring Phys: Bead Wire Taper Irma Duran RDCS Procedure CPT: Indications: Syncope Cardiac Hx: CAD, Stent Technical Quality: Fair Contrast 1: Total Dose (mL): Contrast 2: Total Dose (mL): MEASUREMENTS (Male / Female) Normal Values 2D ECHO LV Diastolic Diameter PLAX 5.4 cm 4.2 - 5.9 / 3.9 - 5.3 cm LV Systolic Diameter PLAX 3.8 cm IVS Diastolic Thickness 1.2 cm 0.6 - 1.0 / 0.6 - 0.9 cm LVPW Diastolic Thickness 1.2 cm 0.6 - 1.0 / 0.6 - 0.9 cm LV Relative Wall Thickness 0.5 RV Internal Dim ED PLAX 2.9 cm LVOT Diameter 2.1 cm LA Systolic Diameter LX 3.9 cm 3.0 - 4.0 / 2.7 - 3.8 cm LV Diastolic Volume MOD 4C 109.1 cm??? LV Systolic Volume MOD 4C 46.1 cm??? LV Ejection Fraction MOD 4C 57.8 % LV Diastolic Length 4C 9.0 cm LV Systolic Length 4C 6.8 cm LA Volume 58.9 cm??? 18 - 58 / 22 - 52 cm??? LA Volume Index 24.7 cm???/m??? 16 - 28 cm???/m??? DOPPLER MV Area PHT 3.5 cm??? Mitral E Point Velocity 81.2 cm/s Mitral A Point Velocity 79.4 cm/s Mitral E to A Ratio 1.0 MV Deceleration Time 217.1 ms TR Peak Velocity 120.6 cm/s TR Peak Gradient 5.8 mmHg Right Atrial Pressure 5.0 mmHg Pulmonary Artery Systolic Pressu 10.8 mmHg Right Ventricular Systolic Press 10.8 mmHg FINDINGS Left Ventricle Left ventricular ejection fraction is estimated at 50-55%. Mildly increased septal wall thickness. Normal left ventricular systolic function. No obvious regional wall motion abnormalities. Right Ventricle Right ventricle not well visualized. Normal right ventricular function. Right ventricular systolic pressure within normal limits. Right Atrium Normal right atrial size. Left Atrium Mildly increased left atrial area. Mitral Valve Structurally normal mitral valve. No mitral stenosis. Trace mitral regurgitation. Aortic Valve Trileaflet aortic valve. No aortic stenosis. No aortic regurgitation. Tricuspid Valve Structurally normal tricuspid valve. No tricuspid stenosis. Trace tricuspid regurgitation. Pulmonic Valve Pulmonic valve not well visualized. No pulmonic stenosis. No pulmonic regurgitation. Pericardium No pericardial effusion. Aorta Normal size aortic root and proximal ascending aorta. CONCLUSIONS LVEF 55% No obvious regional wall motion abnormalities. Mild LA dilatation No obvious valvular dysfunction No prior echo to compare with in database RVSP within normal limits. Previewed by: Dr Ramon Ibarra (Electronically Signed) Final Date: 15 September 2024 13:07
--- NOTE | 2024-09-15 13:15 | P.PN ---
Subjective HISTORY OF PRESENT ILLNESS: This is a 59-year-old male patient Suzanne, last seen in the office on 09/11/2022, with past medical history of hypertension, hyperlipidemia, coronary artery disease with prior PCI of the LAD in May 2019 at [facility], ADHD, prior tobacco use and dependence. We have been asked to evaluate the patient for syncope. Patient is a poor historian. He has voiced that he has been noncompliant with his medications and he has not followed up with his PCP nor relay worker. He states he ran out of some of his medications but he thinks he has been taking metoprolol and metformin. 2 days ago he noticed that he had significant edema to his hands and feet. He also developed weakness and confusion and apparently had syncopal or near syncopal episodedetails are not available. Patient came into the hospital for further evaluation. Blood pressure 131/67, heart rate in the 60s, pulse ox 100% on BiPAP. Patient has been seen by pulmonary medicine and has been ordered for transfer to [facility] due to continuous BiPAP need. Patient has been afebrile. He is status post 1 L of IV fluids as well as started on nebulizer treatments and IV steroids. -EKG: Sinus rhythm with new T wave inversion inferolateral leads -Chest x-ray: No consolidation. -Renal ultrasound reveals no hydronephrosis, no nephrolithiasis. Hepatic steatosis. -Laboratory studies: WBC 8.6, hemoglobin 13.5. Initial BUN 30 repeat 29, creatinine 1.51 and repeat 1.35. Troponin negative x 1. proBNP 813. TSH 34 and normal free T4 of 1.21. Cepheid viral panel not detected. Serum alcohol less than 10. Urinalysis glucose 4+ and blood small. -Home cardiac medications: Patient has been noncompliant with his medications. -Lexiscan Cardiolite stress test performed in the office on 05/27/2022: Fixed lateral perfusion defect consistent with prior TN in the circumflex territory. No reversible myocardial perfusion defects to suggest ischemia. Normal left ventricular EF 55% with anterior lateral hypokinesis. -Echocardiogram performed in the office on 05/19/2022 revealed EF 45%. Small hypokinetic area in the inferior wall at the base. Grade 1 diastolic dysfunction. Moderate left ventricular hypertrophy. Trileaflet aortic valve. Trace mitral regurgitation. Mild tricuspid regurgitation. Normal pulmonary artery systolic pressure. 09/15/2024 Patient examined this morning the bedside. Patient is wearing a BiPAP at the time of examination which he states has significantly helped with his shortness of breath. Patient remains on 40 mg IV Lasix daily. BUN today 29. Creatinine 1.35. Blood pressure 153/80. He denies any chest pain or pressure. PHYSICAL EXAM: VITAL SIGNS: Reviewed. GENERAL: Well-developed in no acute distress. NECK: Supple. No JVD or thyromegaly LUNGS: Respirations even and unlabored. Lungs essentially clear to auscultation bilaterally. HEART: Regular rate and rhythm. S1 and S2 heard. EXTREMITIES: Normal range of motion. No clubbing or cyanosis. Peripheral pulses intact. 1+ bilateral lower extremity edema ASSESSMENT: Syncopal episode or possible near syncopal episode-unable to obtain details from the patient Altered mental status, probable hypercapnic encephalopathy Acute systolic heart failure Ischemic cardiomyopathy with previous EF of 45% Abnormal EKG with new T wave inversions History of coronary artery disease with previous stent to the LAD in 2019 performed at [facility] Acute kidney injury Metabolic alkalosis Possible underlying COPD Obstructive sleep apnea and not utilizing CPAP machine Hypothyroidism with previous thyroidectomy Diabetes mellitus type II Hypertension Hyperlipidemia, patient was previously taken off Lipitor due to muscle aches and fatigue Obesity with a BMI of 30 Tobacco use and dependence-patient may have quit smoking Noncompliance with follow-up appointments and not taking medications ADHD PLAN: Continue current cardiac medications including aspirin, Lipitor, and losartan Continue IV Lasix Daily weights, accurate intake and output, monitoring of kidney function Will obtain cardiology office records to verify what patient was prescribed the last time he was in the office Further recommendations pending patient course Nurse practitioner note has been reviewed by physician. Signing provider agrees with the documented findings, assessment, and plan of care documented by CLOUD SOFTWARE ENGINEER as a scribe. Objective - Vital Signs Vital signs: Vital Signs Temp 98.2 F 09/15/24 07:28 Pulse 78 09/15/24 07:28 Resp 16 09/15/24 07:28 BP 153/80 09/15/24 07:28 Pulse Ox 97 09/15/24 08:43 FiO2 40 09/15/24 04:08 Intake & Output 09/14/24 09/15/24 09/15/24 18:59 06:59 18:59 Weight 121.5 kg Other: Voiding Method Toilet Toilet - Labs CBC & Chem 7: 09/15/24 06:15 09/15/24 06:15 Labs: Abnormal Lab Results - Last 24 Hours (Table) 09/14/24 09/14/24 09/14/24 Range/Units 11:48 12:05 16:32 WBC (4.50-10.00) 10*3/uL RBC (4.40-5.60) 10*6/uL Hgb (13.0-17.0) g/dL Hct (39.6-50.0) % Immature Gran # (0.00-0.04) 10*3/uL Neutrophils # (1.80-7.70) 10*3/uL Eosinophils # (0.04-0.35) 10*3/uL Sodium (137-145) mmol/L BUN (9-20) mg/dL Creatinine (0.66-1.25) mg/dL Glucose (74-99) mg/dL POC Glucose (mg/dL) 200 H 161 H (70-110) mg/dL Urine Glucose (UA) 4+ H (Negative) Urine Blood Small H (Negative) 09/14/24 09/15/24 09/15/24 Range/Units 20:04 06:08 06:15 WBC 13.26 H (4.50-10.00) 10*3/uL RBC 4.09 L (4.40-5.60) 10*6/uL Hgb 12.9 L (13.0-17.0) g/dL Hct 38.7 L (39.6-50.0) % Immature Gran # 0.05 H (0.00-0.04) 10*3/uL Neutrophils # 11.82 H (1.80-7.70) 10*3/uL Eosinophils # 0.00 L (0.04-0.35) 10*3/uL Sodium (137-145) mmol/L BUN (9-20) mg/dL Creatinine (0.66-1.25) mg/dL Glucose (74-99) mg/dL POC Glucose (mg/dL) 248 H 203 H (70-110) mg/dL Urine Glucose (UA) (Negative) Urine Blood (Negative) 09/15/24 Range/Units 06:15 WBC (4.50-10.00) 10*3/uL RBC (4.40-5.60) 10*6/uL Hgb (13.0-17.0) g/dL Hct (39.6-50.0) % Immature Gran # (0.00-0.04) 10*3/uL Neutrophils # (1.80-7.70) 10*3/uL Eosinophils # (0.04-0.35) 10*3/uL Sodium 136 L (137-145) mmol/L BUN 29 H (9-20) mg/dL Creatinine 1.35 H (0.66-1.25) mg/dL Glucose 184 H (74-99) mg/dL POC Glucose (mg/dL) (70-110) mg/dL Urine Glucose (UA) (Negative) Urine Blood (Negative)
[2024-09-15] MEDS: METOPROLOL SUCCINATE (ER) 25 MG TAB.ER.24H PO SCH (16:00)
[2024-09-15] MEDS: EZETIMIBE 10 MG TAB PO SCH (16:01)
[2024-09-15 16:19] LABS: Glucose,Whole Blood 216 mg/dL (70-110)
[2024-09-15 20:11] LABS: Glucose,Whole Blood 219 mg/dL (70-110)
[2024-09-16 05:59] LABS: Glucose,Whole Blood 220 mg/dL (70-110)
[2024-09-16 06:32] LABS: HCT 37.5 % (39.6-50.0); HGB 12.3 g/dL (13.0-17.0); MCH 31.5 pg (27.0-32.0); MCHC 32.8 g/dL (32.0-37.0); MCV 96.2 fL (80.0-97.0); Mean Platelet Volume 10.7 fL (9.5-12.2); Platelet Count 345 10*3/uL (140-440); RDW 13.5 % (11.5-14.5); WBC 15.83 10*3/uL (4.50-10.00)
[2024-09-16 07:02] LABS: African American GFR (CKD) 73 (>60 ml/min/1.73 sqM); Anion Gap 9 mmol/L; Blood Urea Nitrogen 31 mg/dL (9-20); Calcium 9.5 mg/dL (8.4-10.2); Carbon Dioxide 28 mmol/L (22-30); Chloride 100 mmol/L (98-107); Glucose 213 mg/dL (74-99); Magnesium 2.3 mg/dL (1.6-2.3); Non-African American GFR(CKD) 64 (>60 ml/min/1.73 sqM); Potassium 4.9 mmol/L (3.5-5.1); Sodium 137 mmol/L (137-145)
--- NOTE | 2024-09-16 11:22 | P.PN ---
Subjective Progress Note Date: 09/16/24 Principal diagnosis: Respiratory failure. Is a 59-year-old male with past medical history significant for sleep apnea and noncompliant with CPAP, hypothyroidism, hyperlipidemia, type 2 diabetes mellitus, CAD with previous PCI/stent. Primary care provider is reportedly Dr. Schaefer. Presented to emergency department late last night with chief complaint of increased lethargy and sleepiness. Reportedly falling asleep at inappropriate times. Possible concern for syncope. Workup in the emergency department including a chest x-ray which did not show any acute cardiopulmonary process. CBC fairly unremarkable, WBC count 8.9, hemoglobin 13.3, platelets 306. CMP: Sodium 139, potassium 4, chloride 99, serum bicarb 32, BUN 30, creatinine 1.51, glucose 137. LFTs not elevated. Troponin 0.012. NT proBNP 813. TSH 34. Free T4 1.21. Previously noncompliant with his thyroid me dication. He has history of thyroidectomy. Of note, had an ER visit back on 09/08/2024 for generalized swelling. TSH was greater than 100, free T4 0.1. Patient has since resumed his Synthroid. Serum alcohol level less than 10. Viral screen negative for influenza A/B, RSV, COVID. Evaluated on the general medical floor. Currently on BiPAP with settings 12/6 and FiO2 40%. Only achieving tidal volumes around 150-200. Inspiratory pressure augmented to 16. Despite this, able to arouse. Able to carry out conversations, but will fall asleep without continuous verbal stimuli. Denies documented history of COPD. He does smoke approximately 1/4 pack of cigarettes per day. Denies shortness of breath, change in cough, sputum production, fevers or chills, sick contacts. Does have history of obstructive sleep apnea, however, has not had his CPAP in over 2 years. Reportedly moved from [place] and left it at his previous residence. Reports excessive daytime sleepiness. Has not been sleeping well at night. Has been falling asleep at inappropriate times, such as during conversation. Also endorses some generalized swelling. Denies history of heart failure. Denies chest pain, heart palpitations, or actual syncopal events. Current vital signs: Temperature 97.4 F, heart rate 63 bpm, blood pressure 150/82 mmHg, nontachypneic, SpO2 recorded at 96% on the above-mentioned BiPAP settings. Progress note dated September 15, 2024. 59-year-old male seen today in room 366. He is sitting upright in his chair, next to the hospital bed. The patient continues on nasal O2 at 4 L. He did use BiPAP last night, with settings of 12/6, and 40%. He is not receiving any IV fluids. His daughter was on the phone talking to him. Current white count 13.3, hemoglobin 12.9, hematocrit 38.7, and platelet count 335,000. Sodium 136, potassium 4.2, chlorides 101, CO2 28, BUN 29, and creatinine 1.35. Glucose is 184. Hemoglobin A1c is 7.4. Ultrasound of the abdomen and pelvic area, shows no evidence of hydronephrosis or nephrolithiasis. There is hepatic steatosis. Clinically, the patient is doing much better. His breathing is much improved. He feels much better. We did financial health counselor him about the importance of him taking his medications as prescribed. Progress note dated September 16, 2024. 59-year-old male seen today in room 366. Currently, the patient is on 4 L of oxygen. He is not receiving any IV fluids. At nighttime, he is using BiPAP, with settings of 12/6, and 40%. Clinically, the patient is doing much better. He feels like his breathing is much improved. Current laboratory data includes a white count 15.8, hemoglobin 12.3, hematocrit 37.5, and a platelet count of 245,000. Sodium 137, potassium 4.9, chlorides 100, CO2 28, BUN 31, creatinine 1.25. Glucose is 220. Calcium 9.5, magnesium 2.3. Objective - Vital Signs Vital signs: Vital Signs Temp 97.4 F L 09/16/24 07:30 Pulse 73 09/16/24 07:30 Resp 18 09/16/24 08:00 BP 155/84 09/16/24 07:30 Pulse Ox 95 09/16/24 10:58 FiO2 40 09/16/24 03:28 Intake & Output 09/15/24 09/16/24 09/16/24 18:59 06:59 18:59 Intake Total 600 237 180 Output Total 500 Balance 600 -263 180 Weight 121.5 kg Intake: Oral 600 237 180 Output: Urine 500 Other: Voiding Method Toilet Toilet - Exam No acute distress, oriented 3. Currently on 4 L nasal cannula. HEENT examination is grossly unremarkable. Mucous membranes are moist. No oral lesions. Neck supple. Full range of motion. No adenopathy thyromegaly or neck vein distention. Cardiovascular examination reveals regular rhythm rate. S1-S2 normal. No S3 or S4. No discernible murmur noted. Lungs reveal scattered bilateral rhonchi, heard on exhalation. No wheezes. No crackles. Breath sounds are equal bilaterally. Abdomen soft bowel sounds are heard. No masses or tenderness. Extremities are intact. No cyanosis clubbing or edema. Skin is without rash or lesion. Neurologic examination is brief but nonfocal. - Labs CBC & Chem 7: 09/16/24 05:38 09/16/24 05:38 Labs: Abnormal Lab Results - Last 24 Hours (Table) 09/15/24 09/15/24 09/15/24 Range/Units 11:34 16:18 20:05 WBC (4.50-10.00) 10*3/uL RBC (4.40-5.60) 10*6/uL Hgb (13.0-17.0) g/dL Hct (39.6-50.0) % BUN (9-20) mg/dL Glucose (74-99) mg/dL POC Glucose (mg/dL) 246 H 216 H 219 H (70-110) mg/dL 09/16/24 09/16/24 09/16/24 Range/Units 05:38 05:38 05:53 WBC 15.83 H (4.50-10.00) 10*3/uL RBC 3.90 L (4.40-5.60) 10*6/uL Hgb 12.3 L (13.0-17.0) g/dL Hct 37.5 L (39.6-50.0) % BUN 31 H (9-20) mg/dL Glucose 213 H (74-99) mg/dL POC Glucose (mg/dL) 220 H (70-110) mg/dL Assessment and Plan Assessment: Altered mental status, secondary to hypercapnic encephalopathy. Metabolic alkalosis. Current ongoing tobacco dependence. Probable COPD from chronic tobacco use. History of sleep apnea syndrome, noncompliant with CPAP. Acute kidney injury. Primary hypothyroidism. Medication noncompliance. Diabetes mellitus, type II. Hypertension. Hyperlipidemia. History of CAD with previous PCI/stents. Obesity, with a BMI of 30.2 kg/m. Plan: Plan dated September 15, 2024. The patient is seen today in room 366. The patient appears to be doing much better. He is much more awake and alert. He is currently on 4 L. He did use the BiPAP device last night. The patient is counseled about the importance of smoking cessation. We also counseled the patient about the importance of using his CPAP, and also about taking his medications. It appears he was not taking his thyroid medications, among other things. His daughter was on the phone, and we spoke freely in front of her about his issues. Labs, x-rays, and medications are reviewed. We will continue to follow make recommendations along the way. Prognosis is guarded. Dictation was produced using [employer] software. Please excuse any grammatical, word or spelling errors. Plan dated September 16, 2024. Clinically, the patient is doing much better. He feels much improved with his breathing. The patient is counseled about the importance of smoking cessation. We will continue to follow the patient, make recommendations along the way. The patient also promises to take all of his medications as prescribed. Labs, x- rays, and medications are reviewed. We will continue to follow if the patient is not discharged. Dictation was produced using [employer] software. Please excuse any grammatical, word or spelling errors. Time with Patient: Less than 30
[2024-09-16 11:35] VITALS: BP 148/73; PULSE 75; RESP 16; TEMP 98.2
--- NOTE | 2024-09-16 12:11 | P.PN ---
Subjective HISTORY OF PRESENT ILLNESS: This is a 59-year-old male patient Suzanne, last seen in the office on 09/11/2022, with past medical history of hypertension, hyperlipidemia, coronary artery disease with prior PCI of the LAD in May 2019 at [facility], ADHD, prior tobacco use and dependence. We have been asked to evaluate the patient for syncope. Patient is a poor historian. 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 He states he ran out of some of his medications but he thinks he has been taking metoprolol and metformin. 2 days ago he noticed that he had significant edema to his hands and feet. He also developed weakness and confusion and apparently had syncopal or near syncopal episodedetails are not available. Patient came into the hospital for further evaluation. Blood pressure 131/67, heart rate in the 60s, pulse ox 100% on BiPAP. Patient has been seen by pulmonary medicine and has been ordered for transfer to [facility] due to continuous BiPAP need. Patient has been afebrile. He is status post 1 L of IV fluids as well as started on nebulizer treatments and IV steroids. -EKG: Sinus rhythm with new T wave inversion inferolateral leads -Chest x-ray: No consolidation. -Renal ultrasound reveals no hydronephrosis, no nephrolithiasis. Hepatic steatosis. -Laboratory studies: WBC 8.6, hemoglobin 13.5. Initial BUN 30 repeat 29, creatinine 1.51 and repeat 1.35. Troponin negative x 1. proBNP 813. TSH 34 and normal free T4 of 1.21. Cepheid viral panel not detected. Serum alcohol less than 10. Urinalysis glucose 4+ and blood small. -Home cardiac medications: Patient has been noncompliant with his medications. -Lexiscan Cardiolite stress test performed in the office on 05/27/2022: Fixed lateral perfusion defect consistent with prior VT in the circumflex territory. No reversible myocardial perfusion defects to suggest ischemia. Normal left ventricular EF 55% with anterior lateral hypokinesis. -Echocardiogram performed in the office on 05/19/2022 revealed EF 45%. Small hypokinetic area in the inferior wall at the base. Grade 1 diastolic dysfunction. Moderate left ventricular hypertrophy. Trileaflet aortic valve. Trace mitral regurgitation. Mild tricuspid regurgitation. Normal pulmonary artery systolic pressure. 09/15/2024 Patient examined this morning the bedside. Patient is wearing a BiPAP at the time of examination which he states has significantly helped with his shortness of breath. Patient remains on 40 mg IV Lasix daily. BUN today 29. Creatinine 1.35. Blood pressure 153/80. He denies any chest pain or pressure. 09/16 Patient seen and examined. Patient states his breathing is continue to be kenzie r. Blood pressures mainly in the 120s to 140s. Creatinine improved to 1.2. No significant lightheadedness or dizziness. Intermittently using BiPAP at night. PHYSICAL EXAM: VITAL SIGNS: Reviewed. GENERAL: Well-developed in no acute distress. NECK: Supple. No JVD or thyromegaly LUNGS: Respirations even and unlabored. Lungs essentially clear to auscultation bilaterally. HEART: Regular rate and rhythm. S1 and S2 heard. EXTREMITIES: Normal range of motion. No clubbing or cyanosis. Peripheral pulses intact. 1+ bilateral lower extremity edema ASSESSMENT: Syncopal episode or possible near syncopal episode-unable to obtain details from the patient Altered mental status, probable hypercapnic encephalopathy Acute systolic heart failure Ischemic cardiomyopathy with previous EF of 45% Abnormal EKG with new T wave inversions History of coronary artery disease with previous stent to the LAD in 2019 performed at [facility] Acute kidney injury Metabolic alkalosis Possible underlying COPD Obstructive sleep apnea and not utilizing CPAP machine Hypothyroidism with previous thyroidectomy Diabetes mellitus type II Hypertension Hyperlipidemia, patient was previously taken off Lipitor due to muscle aches and fatigue Obesity with a BMI of 30 Tobacco use and dependence-patient may have quit smoking Noncompliance with follow-up appointments and not taking medications ADHD PLAN: Appears to be improving with better blood pressure control and repeat echo shows EF 55%. Transition to oral Lasix and appears stable for discharge home later today if doing very well or likely 24 hours. Objective - Vital Signs Vital signs: Vital Signs Temp 98.2 F 09/16/24 11:25 Pulse 75 09/16/24 11:25 Resp 16 09/16/24 11:25 BP 148/73 09/16/24 11:25 Pulse Ox 97 09/16/24 11:25 FiO2 40 09/16/24 03:28 Intake & Output 09/15/24 09/16/24 09/16/24 18:59 06:59 18:59 Intake Total 600 237 180 Output Total 500 Balance 600 -263 180 Weight 121.5 kg Intake: Oral 600 237 180 Output: Urine 500 Other: Voiding Method Toilet Toilet - Labs CBC & Chem 7: 09/16/24 05:38 09/16/24 05:38 Labs: Abnormal Lab Results - Last 24 Hours (Table) 09/15/24 09/15/24 09/16/24 Range/Units 16:18 20:05 05:38 WBC 15.83 H (4.50-10.00) 10*3/uL RBC 3.90 L (4.40-5.60) 10*6/uL Hgb 12.3 L (13.0-17.0) g/dL Hct 37.5 L (39.6-50.0) % BUN (9-20) mg/dL Glucose (74-99) mg/dL POC Glucose (mg/dL) 216 H 219 H (70-110) mg/dL 09/16/24 09/16/24 Range/Units 05:38 05:53 WBC (4.50-10.00) 10*3/uL RBC (4.40-5.60) 10*6/uL Hgb (13.0-17.0) g/dL Hct (39.6-50.0) % BUN 31 H (9-20) mg/dL Glucose 213 H (74-99) mg/dL POC Glucose (mg/dL) 220 H (70-110) mg/dL
[2024-09-16 12:21] LABS: Glucose,Whole Blood 338 mg/dL (70-110)
--- NOTE | 2024-09-16 14:12 | P.DS ---
Providers Date of admission: 09/14/24 02:10 Attending physician: Torsten Shipley MD Consults: 09/14/24 02:08 Consult Physician Routine Consulting Provider: Janusz Jain Reason/Comments: hypoxia Do you want consulting provider notified?: Yes 09/14/24 08:46 Consult Physician Routine Consulting Provider: Jose Alberto Celestin Consult Reason/Comments: syncope Do you want consulting provider notified?: Yes Primary care physician: Kobi Schaefer Hospital Course: Discharge diagnoses; #Obstructive Sleep apnea, noncompliant with CPAP #Chronic hypercapnic respiratory failure #Metabolic alkalosis, improving #Probable hypercapnic encephalopathy, resolved #Ischemic cardiomyopathy, EF 50-55% on echocardiogram completed on 09/14/2024 #Syncopal episode or possible syncopal episode #History of CAD with previous stent placement to the LAD in 2019 #Leukocytosis, possibly secondary to IV corticosteroid use #Hypothyroidism secondary to Thyroidectomy #Acute kidney injury, nonoliguric, improving #Current ongoing tobacco dependence #Hyperlipidemia #Type 2 diabetes mellitus Hospital course; 59 year old male with past medical history of coronary artery disease with prior stenting, diabetes mellitus, hypothyroidism status post thyroidectomy presents to the ED with dizziness. Patient reports experiencing dizziness with multiple black outs. The patient presented to the ED a few days ago with complaint of swelling in his hands and feet along with dyspnea and some chest discomfort on exertion. During his stay he underwent chest x-ray which showed no consolidation. An ultrasound of his abdomen/bladder which showed no evidence of hydronephrosis and no nephrolithiasis. Additionally, he underwent echocardiogram which showed EF 50-55% with mild left atrial dilation and RVSP within normal limits. He was seen and evaluated by cardiology and pulmonology. He was given 40 mg IV daily of IV Lasix for total of 3 days, will be transition to oral Lasix as per cardiology's recommendation of 80 mg daily. Discussed with him the importance of following up with his primary care physician, cardiology as well as pulmonology. The importance of adherence to his medications as well as use of his CPAP machine. He verbalized understanding and agreement all of this, as well as expressing a desire to attempt cessation of smoking. Stating that he feels as though he will begin to take his health more seriously than he had previously. He is excited to be discharged today. Physical Exam: Vital signs reviewed General: nontoxic, no distress, appears at stated age Derm: warm, dry, intact Head: atraumatic, normocephalic, symmetric Eyes: EOMI, anicteric sclera Mouth: no lip lesion, mucus membranes moist Cardiovascular: S1 S2 reg, no murmur Lungs: CTA bilateral, no rhonchi, no rales, no accessory muscle use Abdominal: soft, non-tender to palpation Extremities: No cyanosis, clubbing, BL 1+ pitting edema Neuro: Alert, Oriented, Gross neurological examination did not reveal any focal deficits. Psych: well appearing, appropriate affect Dictation was produced using [employer] dictation software. please excuse any grammatical, word or spelling errors. Tye Roche MD PGY-1 IM I saw and evaluated the patient during the mckeon and critical portions of this encounter, and discussed the case in detail with the resident author of this note, I agree with the Assessment and Plan, and my changes, if any, are highlighted in blue. Patient Condition at Discharge: Fair Plan - Discharge Summary New Discharge Prescriptions: New Furosemide [Lasix] 80 mg PO DAILY #30 tab Metoprolol Succinate (ER) [Toprol XL] 25 mg PO DAILY #30 tab Ezetimibe [Zetia] 10 mg PO DAILY #30 tab Losartan [Cozaar] 25 mg PO DAILY #30 tab Nicotine 21Mg/24Hr Patch [Habitrol] 1 patch TRANSDERM DAILY #30 patch Atorvastatin [Lipitor] 40 mg PO HS #30 tab Continue metFORMIN HCL 500 mg PO DAILY Levothyroxine Sodium 200 mcg PO DAILY #30 tab Aspirin EC [Ecotrin Low Dose] 81 mg PO BID Dorzolamide-Timol 2.23%/0.68% [Cosopt] 1 drop LEFT EYE BID Discharge Medication List Aspirin EC [Ecotrin Low Dose] 81 mg PO BID 09/08/24 [History] Levothyroxine Sodium 200 mcg PO DAILY #30 tab 09/08/24 [Rx] metFORMIN HCL 500 mg PO DAILY 09/08/24 [History] Dorzolamide-Timol 2.23%/0.68% [Cosopt] 1 drop LEFT EYE BID 09/14/24 [History] Atorvastatin [Lipitor] 40 mg PO HS #30 tab 09/16/24 [Rx] Ezetimibe [Zetia] 10 mg PO DAILY #30 tab 09/16/24 [Rx] Furosemide [Lasix] 80 mg PO DAILY #30 tab 09/16/24 [Rx] Losartan [Cozaar] 25 mg PO DAILY #30 tab 09/16/24 [Rx] Metoprolol Succinate (ER) [Toprol XL] 25 mg PO DAILY #30 tab 09/16/24 [Rx] Nicotine 21Mg/24Hr Patch [Habitrol] 1 patch TRANSDERM DAILY #30 patch 09/16/24 [Rx] Follow up Appointment(s)/Referral(s): Hiren Eli DO [STAFF PHYSICIAN] - 1 Week Kobi Schaefer DO [Primary Care Provider] - 1-2 days Janusz Jain DO [Doctor of Osteopathic Medicine] - 1 Week Patient Instructions/Handouts: Sleep Apnea (GEN), CPAP (GEN) Activity/Diet/Wound Care/Special Instructions: Please be sure to follow-up with your primary care physician within 1-3 days of discharge, for further assistance in terms of acquiring a CPAP machine for home. Please be sure to follow-up within 1-2 weeks with pulmonology, and then regularly after that for close interval follow-up to ensure compliance with medications.
[2024-09-17] MEDS ORDERED: FUROSEMIDE 80 MG TAB PO SCH (09:00)
== END 2024-09-16 15:32 | disposition home or self-care (01) | DRG 194 ==
LOC: EC 21:33 → 6NMEDSUR 09-14 02:10 → OBSVTOIN 09-14 02:11 → 5NMEDONC 09-14 02:17 → 3SCARD 09-14 15:00
PROVIDERS: ADMIT Internal Medicine; ATTEND Internal Medicine
DX: I11.0 Hypertensive heart disease with heart failure (principal); I50.23 Acute on chronic systolic (congestive) heart failure; I25.5 Ischemic cardiomyopathy; J44.1 Chronic obstructive pulmonary disease with (acute) exacerbation; E87.3 Alkalosis; J96.12 Chronic respiratory failure with hypercapnia; E11.9 Type 2 diabetes mellitus without complications; E89.0 Postprocedural hypothyroidism; E66.9 Obesity, unspecified; F17.210 Nicotine dependence, cigarettes, uncomplicated; K76.0 Fatty (change of) liver, not elsewhere classified; N17.9 Acute kidney failure, unspecified; G47.33 Obstructive sleep apnea (adult) (pediatric); G93.49 Other encephalopathy; I25.10 Atherosclerotic heart disease of native coronary artery without angina pectoris; I25.2 Old myocardial infarction; D72.829 Elevated white blood cell count, unspecified; E78.5 Hyperlipidemia, unspecified; Z68.30 Body mass index [BMI] 30.0-30.9, adult; I08.1 Rheumatic disorders of both mitral and tricuspid valves; T38.0X5A Adverse effect of glucocorticoids and synthetic analogues, initial encounter; F90.9 Attention-deficit hyperactivity disorder, unspecified type; R94.31 Abnormal electrocardiogram [ECG] [EKG]; Z79.82 Long term (current) use of aspirin; Z28.310 Unvaccinated for COVID-19; Z79.84 Long term (current) use of oral hypoglycemic drugs; Z79.899 Other long term (current) drug therapy; Z79.890 Hormone replacement therapy; Z91.148 Patient's other noncompliance with medication regimen for other reason; Z88.5 Allergy status to narcotic agent; Z95.5 Presence of coronary angioplasty implant and graft
CPT/HCPCS: 36415; 71045; 76770; 80048; 80053; 80320; 81001; 83036; 83605; 83735; 83880; 84100; 84439; 84443; 84484; 85025; 85027; 85610; 85730; 87636; 93005; 93306; 94640; 94660; 94760; 96361; 96374; 99285

== ENCOUNTER → 2024-11-14 | Outpatient (CLI) | payer OTHER ==
--- NOTE | 2024-11-14 18:22 | CTL ---
EXAMINATION TYPE: CT Low Dose Lung DATE OF EXAM: 11/14/2024 5:43 PM COMPARISON: Previous low-dose lung cancer screening study dated 12/18/2021. CLINICAL INDICATION: Male, 59 years old with history of Z12.2, F17.210 NICOTINE DEPENDENCE, CIGARETTE S, UN; PT HAD PNEUMONIA 2 WEEKS AGO, SMOKES 1/2 PK/DAY X 20 YRS. CARDIAC STENT PLACED 5 YRS AGO, hist ory of tobacco use. TECHNIQUE: Multiple axial non-contrast scans were obtained from approximately the lung apices through the upper abdomen. Coronal and sagittal reformatted images were obtained. Low dose technique was uti lized. MIP were created on a separate workstation and submitted for review. CT DLP: 105 mGycm, Automated exposure control for dose reduction was used. CT Contrast: FINDINGS: Lack of intravenous contrast and low dose technique limits the evaluation of the vascular and soft ti ssue structures. Heart size is within normal limits. Coronary artery desiccation with likely coronary stenting involvi ng the LAD. Calcified metastatic disease of the thoracic aorta without aneurysmal dilatation. No path ologic mediastinal lymphadenopathy. The pathologic axillary lymphadenopathy. Imaging through the lungs demonstrates no acute focal consolidation, pleural effusion or pneumothorax . Emphysema, most pronounced in the lung apices. Scattered subcentimeter pulmonary micronodules, not significantly changed from prior study. Right lower lobe linear scarring/atelectasis. No new suspicio us or enlarging pulmonary nodule or pulmonary mass. Partially visualized upper abdomen demonstrates no acute pathology. Thoracic spine degenerative vergara es. IMPRESSION: No new suspicious or enlarging pulmonary nodule. CT LUNG RAD AND CT CHEST RECOMMENDATION: Lung-Rad 2 Benign Appearance or Behavior: Continue annual sc reening with LDCT in 12 months. S Modifier (other clinically significant findings): None Recommend smoking cessation (if current smoker), or continuation of smoking cessation (if prior smoke r). Annual screening for lung cancer with low-dose computed tomography is recommended in adults ages 55 to 77 years who have a 30 pack-year smoking history and currently smoke or have quit within the pa st 15 years. Screening should be discontinued once a person has not smoked for 15 years or develops a health problem that substantially limits life expectancy or the ability or willingness to have curat devyn lung surgery. Lung rads 2021 [email or web address] [facility], , 11/14/2024 6:20 PM
== END | disposition home or self-care (01) ==
LOC: RADCTMAIN 16:24
PROVIDERS: ATTEND Internal Medicine
DX: Z12.2 Encounter for screening for malignant neoplasm of respiratory organs (principal); F17.210 Nicotine dependence, cigarettes, uncomplicated; Z95.5 Presence of coronary angioplasty implant and graft
CPT/HCPCS: 71271

== ENCOUNTER 2024-11-15 15:30 | Inpatient (IN) | payer OTHER ==
--- NOTE | 2024-11-15 16:21 | ED ---
Chest Pain HPI - General Chief Complaint: Chest Pain Stated Complaint: Chest pain,SOB Time Seen by Provider: 11/15/24 15:46 Source: patient, RN notes reviewed, old records reviewed Mode of arrival: ambulatory Limitations: no limitations - History of Present Illness Initial Comments: This is a 59 male presenting to us today for evaluation of chest pain. History of stent history of LAD stent 6 years ago. Patient presents with chest pain today while outside in a hot car that progressed to worsening shortness of breath and some diaphoresis this brought him to the ER, throughout ER stay chest pain has resolved MD Complaint: chest pain -: minutes(s) Onset: during exertion Pain Location: substernal, left chest Pain Radiation: none Severity: moderate Severity scale (1-10): 6 Quality: tightness, heaviness Consistency: constant, now resolved Improves With: nothing Worsens With: nothing Anginal Symptoms: diaphoresis, dyspnea Other Symptoms: palpitations Treatments Prior to Arrival: none - Related Data Home Medications Medication Instructions Recorded Confirmed metFORMIN HCL 500 mg PO DAILY 09/08/24 11/15/24 Dorzolamide-Timol 2.23%/0.68% 1 drop BOTH EYES BID 09/14/24 11/15/24 [Cosopt] Nicotine 21Mg/24Hr Patch [Habitrol] 1 patch TRANSDERM DAILY PRN 11/15/24 11/15/24 Nicotine Polacrilex [Nicotine Gum] 4 mg BUCCAL Q2H PRN 11/15/24 11/15/24 Varenicline [Chantix Continuing 1 mg PO DIRECTED 11/15/24 11/15/24 Pack] Varenicline [Chantix Starter Pack] See Taper PO DIRECTED 11/15/24 11/16/24 Atorvastatin [Lipitor] 40 mg PO DAILY 11/16/24 11/16/24 Metoprolol Succinate (ER) [Toprol 100 mg PO DAILY 11/16/24 11/16/24 XL] Previous Rx's Medication Instructions Recorded Levothyroxine Sodium 200 mcg PO DAILY #30 tab 09/08/24 Ezetimibe [Zetia] 10 mg PO DAILY #30 tab 09/16/24 Aspirin 81 mg PO DAILY 30 Days #30 tab 11/18/24 Clopidogrel [Plavix] 75 mg PO DAILY 30 Days #30 tab 11/18/24 Losartan [Cozaar] 25 mg PO DAILY 30 Days #30 tab 11/18/24 Allergies Allergy/AdvReac Type Severity Reaction Status Date / Time No Known Allergies Allergy Verified 11/15/24 19:21 Review of Systems ROS Statement: Those systems with pertinent positive or pertinent negative responses have been documented in the HPI. ROS Other: All systems not noted in ROS Statement are negative. EKG Findings - EKG Comments: EKG Findings:: EKG is sinus 70 NC 165 QRS 118 QTc 439 - EKG Results: EKG: interpreted by CHARANJIT Past Medical History Past Medical History: Coronary Artery Disease (CAD), Diabetes Mellitus, Thyroid Disorder Additional Past Medical History / Comment(s): Pt is very somnolent, did History of Any Multi-Drug Resistant Organisms: None Reported Past Surgical History: Heart Catheterization With Stent Additional Past Surgical History / Comment(s): thyoidectomy Date of Last Stent Placement:: unknown Past Psychological History: No Psychological Hx Reported Smoking Status: Current every day smoker Past Alcohol Use History: None Reported Past Drug Use History: None Reported General Exam Limitations: no limitations General appearance: alert, in no apparent distress Head exam: Present: atraumatic, normocephalic, normal inspection Eye exam: Present: normal appearance, PERRL, EOMI. Absent: scleral icterus, conjunctival injection, periorbital swelling ENT exam: Present: normal exam, mucous membranes moist Neck exam: Present: normal inspection. Absent: tenderness, meningismus, lymphadenopathy Respiratory exam: Present: normal lung sounds bilaterally. Absent: respiratory distress, wheezes, rales, rhonchi, stridor Cardiovascular Exam: Present: regular rate, normal rhythm, normal heart sounds. Absent: systolic murmur, diastolic murmur, rubs, gallop, clicks GI/Abdominal exam: Present: soft, normal bowel sounds. Absent: distended, tenderness, guarding, rebound, rigid Extremities exam: Present: normal inspection, full ROM, normal capillary refill. Absent: tenderness, pedal edema, joint swelling, calf tenderness Back exam: Present: normal inspection Neurological exam: Present: alert, oriented X3, CN II-XII intact Psychiatric exam: Present: normal affect, normal mood Skin exam: Present: warm, dry, intact, normal color. Absent: rash Course Vital Signs 11/15/24 11/15/24 11/15/24 15:41 19:24 22:00 Temperature 97.7 F Pulse Rate 68 66 66 Respiratory 22 18 18 Rate Blood Pressure 146/78 140/96 120/69 O2 Sat by Pulse 97 96 96 Oximetry Fraction of Inspired Oxygen (FIO2) 11/15/24 11/16/24 11/16/24 22:54 00:00 00:18 Temperature Pulse Rate 60 Respiratory 16 Rate Blood Pressure 119/77 O2 Sat by Pulse 98 Oximetry Fraction of 21 21 Inspired Oxygen (FIO2) 11/16/24 11/16/24 11/16/24 04:30 06:00 08:00 Temperature Pulse Rate 62 64 Respiratory 17 20 Rate Blood Pressure 134/73 130/75 O2 Sat by Pulse 99 98 Oximetry Fraction of 21 Inspired Oxygen (FIO2) 11/16/24 11/16/24 11/16/24 08:08 08:16 10:00 Temperature Pulse Rate 65 63 65 Respiratory 16 Rate Blood Pressure 145/80 O2 Sat by Pulse 98 Oximetry Fraction of Inspired Oxygen (FIO2) 11/16/24 11/16/24 11/16/24 11:57 12:03 13:03 Temperature Pulse Rate 68 71 80 Respiratory 18 Rate Blood Pressure 123/72 O2 Sat by Pulse 97 Oximetry Fraction of Inspired Oxygen (FIO2) 11/16/24 11/16/24 11/16/24 15:44 15:51 15:53 Temperature 97.9 F Pulse Rate 69 76 69 Respiratory 20 20 Rate Blood Pressure 135/74 135/4 O2 Sat by Pulse 95 95 Oximetry Fraction of Inspired Oxygen (FIO2) 11/16/24 15:57 Temperature Pulse Rate 73 Respiratory Rate Blood Pressure O2 Sat by Pulse Oximetry Fraction of Inspired Oxygen (FIO2) - Reevaluation(s) Reevaluation #1: 11/15/24 16:33 Medical records reviewed Old EKG and echoes are reviewed Patient has similar T wave inversion with possibly mild increased ST elevation anteriorly Reevaluation #2: 11/15/24 18:03 Patient has chest pain resolved here in the ER and remains resolved Reevaluation #3: 11/15/24 18:03 Patient informed of results questions answered Reevaluation #4: Was pt. sent in by a medical professional or institution (, PA, PHLEBOTOMIST MEDICAL LAB ASSISTANT, urgent care, hospital, or jail...) When possible be specific @ -no Did you speak to anyone other than the patient for history (EMS, parent, family, police, friend...)? What history was obtained from this source @ -no Did you review nursing and triage notes (agree or disagree)? Why? @ -agree Are old charts reviewed (outside hosp., previous admission, EMS record, old EKG, old radiological studies, urgent care reports/EKG's, jail records)? Re port findings @ -yes Differential Diagnosis (chest pain, altered mental status, abdominal pain women, abdominal pain men, vaginal bleeding, weakness, fever, dyspnea, syncope, headache, dizziness, GI bleed, back pain, seizure, CVA, palpatations, mental health, musculoskeletal)? @ -prior EKG interpreted by me (3pts min.). @ -yes X-rays interpreted by me (1pt min.). @ -yes negative for acute disease CT interpreted by me (1pt min.). @ -no U/S interpreted by me (1pt. min.). @ -no What testing was considered but not performed or refused? (CT, X-rays, U/S, labs)? Why? @ -none What meds were considered but not given or refused? Why? @ -none Did you discuss the management of the patient with other professionals (professionals i.e. , PA, PHLEBOTOMIST MEDICAL LAB ASSISTANT, lab, RT, psych nurse, social media designer, senior ui ux designer, teacher, juvenile correctional officer, sample case porter)? Give summary @ -no Was smoking cessation discussed for >3mins.? @ -no Was critical care preformed (if so, how long)? @ -yes31 Were there social determinants of health that impacted care today? How? (Homelessness, low income, unemployed, alcoholism, drug addiction, transportation, low edu. Level, literacy, decrease access to med. care, senior care, rehab)? @ -none Was there de-escalation of care discussed even if they declined (Discuss DNR or withdrawal of care, Hospice)? DNR status @ -no What co-morbidities impacted this encounter? (DM, HTN, Smoking, COPD, CAD, Cancer, CVA, ARF, Chemo, Hep., AIDS, mental health diagnosis, sleep apnea, morbid obesity)? @ -none Was patient admitted / discharged? Hospital course, mention meds given and route, prescriptions, significant lab abnormalities, going to OR and other pertinent info. @ - 59 male will be admitted for acute coronary syndrome unstable angina mild troponin leak with acute and typical chest pain Admitted Undiagnosed new problem with uncertain prognosis? @ -no Drug Therapy requiring intensive monitoring for toxicity (Heparin, Nitro, Insulin, Cardizem)? @ -no Were any procedures done? @ -no Diagnosis/symptom? @ -Chest pain unstable angina Acute, or Chronic, or Acute on Chronic? @ -Acute Uncomplicated (without systemic symptoms) or Complicated (systemic symptoms)? @ -Complicated Side effects of treatment? @ -no Exacerbation, Progression, or Severe Exacerbation? @ -exacerbation Poses a threat to life or bodily function? How? (Chest pain, USA, VT, pneumonia, PE, COPD, DKA, ARF, appy, cholecystitis, CVA, Diverticulitis, Homicidal, Suicidal, threat to staff... and all critical care pts) @ -yes with chest pain Reevaluation #5: Differential Chest Pain: Stable Angina, Unstable Angina, STEMI, NSTEMI Aortic Dissection, Pneumothorax, Musculoskeletal, Esophageal Spasm GERD, Cholecystitis, Pancreatitis, Zoster, this is not meant to be an all-inclusive list. - Consultations Consultation #1: Spoke with luis who agrees to admit this patient Chest Pain MDM - MDM 59 male will be admitted for acute coronary syndrome unstable angina mild troponin leak with acute and typical chest pain Critical Care Time Critical Care Time: Yes Total Critical Care Time: 31 Disposition Clinical Impression: Chest pain, Unstable angina pectoris Disposition: ADMITTED IP TO THIS [facility] Condition: Stable Is patient prescribed a controlled substance at d/c from ED?: No Time of Disposition: 18:00
--- NOTE | 2024-11-15 16:24 | XR ---
EXAMINATION TYPE: XR chest 2V DATE OF EXAM: 11/15/2024 4:15 PM COMPARISON: Chest radiographs from 09/14/2024. CLINICAL INDICATION: Male, 59 years old with history of Chest Pain; [facility] TECHNIQUE: XR chest 2V Frontal and lateral views of the chest. FINDINGS: Lungs/Pleura: There is no evidence of pleural effusion, focal consolidation, or pneumothorax. Pulmonary vascularity: Unremarkable. Heart/mediastinum: Cardiomediastinal silhouette is unremarkable. Musculoskeletal: No acute osseous pathology. Other findings: None IMPRESSION: No acute cardiopulmonary disease/process. [facility], , 11/15/2024 4:22 PM
[2024-11-15 16:58] LABS: Basophils # (A) 0.11 10*3/uL (0.00-0.10); Basophils % (A) 1.1 %; Eosinophils # (A) 0.44 10*3/uL (0.04-0.35); Eosinophils % (A) 4.2 %; HGB 13.8 g/dL (13.0-17.0); Lymphocytes # (A) 2.17 10*3/uL (0.90-5.00); Lymphocytes % (A) 20.8 %; MCH 29.2 pg (27.0-32.0); MCHC 32.9 g/dL (32.0-37.0); Mean Platelet Volume 9.9 fL (9.5-12.2); Monocytes # (A) 0.68 10*3/uL (0.20-1.00); Monocytes % (A) 6.5 %; Neutrophils # (A) 6.98 10*3/uL (1.80-7.70); Platelet Count 407 10*3/uL (140-440); RBC 4.72 10*6/uL (4.40-5.60); RDW 14.3 % (11.5-14.5); WBC 10.42 10*3/uL (4.50-10.00)
[2024-11-15 17:09] LABS: Partial Thromboplastin Time 24.4 sec (22.0-30.0); Prothrombin Time 10.8 sec (10.0-12.5)
[2024-11-15 17:33] LABS: ALT 46 U/L (4-49); AST 19 U/L (17-59); African American GFR (CKD) 64 (>60 ml/min/1.73 sqM); Albumin 4.2 g/dL (3.5-5.0); Alkaline Phosphatase 81 U/L (38-126); Anion Gap 9 mmol/L; Blood Urea Nitrogen 22 mg/dL (9-20); Calcium 9.3 mg/dL (8.4-10.2); Carbon Dioxide 28 mmol/L (22-30); Chloride 100 mmol/L (98-107); Glucose 211 mg/dL (74-99); Lipase 55 U/L (23-300); Magnesium 1.8 mg/dL (1.6-2.3); Non-African American GFR(CKD) 55 (>60 ml/min/1.73 sqM); Sodium 137 mmol/L (137-145); Total Bilirubin 0.6 mg/dL (0.2-1.3); Total Protein 6.9 g/dL (6.3-8.2)
[2024-11-15 17:41] LABS: NT-Pro-B-Type Natriuretic Pept 356 pg/mL
[2024-11-15] MEDS ORDERED: NITROGLYCERIN SL TABS 0.4 MG TAB SUBLINGUAL PRN (18:01)
[2024-11-15] MEDS ORDERED: MORPHINE SULFATE 4 MG/ML SYRINGE IV PRN (18:01)
[2024-11-15] MEDS: HEPARIN SOD,PORK IN 0.45% NACL 25,000 UNIT in 0.45% NACL 1 250ML.BAG IV SCH (19:04)
[2024-11-15] MEDS: HEPARIN SODIUM 1,000 UN/ML (10ML VL) IV ONE (19:10)
[2024-11-15] MEDS: ASPIRIN 81 MG PO STA (19:15)
[2024-11-15] MEDS: ATORVASTATIN 80 MG TAB PO SCH (19:17)
[2024-11-15] MEDS ORDERED: DEXTROSE 50% SYRINGE 50 ML IVP PRN ×2 (19:47)
--- NOTE | 2024-11-15 20:39 | P.HPIM ---
History of Present Illness H&P Date: 11/15/24 Chief Complaint: Chest pain Patient is a 59 year old male with past medical history of coronary artery disease with prior stenting, diabetes mellitus, hypothyroidism status post thyroidectomy presents to the ED with chest pain. Patient was getting out of a movie theatre and was in a hot car when he started to experience chest pain and shortness of breath along with diaphoresis. He states the pain was substernal radiating to the back. The pain lasted for 25-30 mins and has not had chest pain since. He states being under stress lately as his parents . He rep orts the pain isn't as bad as the pain he experienced when he had the stent placed. He had quit smoking but resumed in the past two weeks. He also had pnemonia and was treated on outpatient basis 2 weeks ago, finished his course of antibiotics and steroids 4-5 days ago. He still reports wheezing, shortness of breath, cough with clear sputum production. 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 Denies fever, chills, palpitations, abdominal pain, nausea, vomiting, hematuria, dysuria, hematochezia, melena, headache, slurred speech, numbness, tingling, lig htheadedness, blurred vision, double vision. ED documentation reviewed. In the ED patient was treated with aspirin 324 mg, atorvastatin 80 mg, heparin drip. Vitals on admission T 97.7 F, AK 68 bpm, RR 22, BP 146/78, SpO2 97% on room air EKG independently interpreted as sinus rhythm; J point elevation in V2, V3; T wave inversion in leads II, III, aVF, V5, V6 Chest x-ray shows no acute cardiopulmonary disease/process Labs on admission show WBC 10.42, hemoglobin 13.8, platelet 407, INR 1.0, sodium 137, potassium 4.0, BUN 22, creatinine 1.4, glucose 211, NT proBNP 356, troponin I 0.018, 0.017 Review of systems: Pertinent positives and negatives as discussed in HPI, a complete review of sys tems was performed and all other systems are negative. Physical examination: Vital signs reviewed General: nontoxic, no distress, appears at stated age Derm: warm, dry, intact Head: atraumatic, normocephalic, symmetric Eyes: EOMI, anicteric sclera Mouth: no lip lesion, mucus membranes moist Cardiovascular: S1 S2 reg, no murmur Lungs: CTA bilateral, no rhonchi, no rales, no accessory muscle use Abdominal: soft, non-tender to palpation Extremities: No cyanosis, clubbing, or pedal edema. Neuro: Alert, Oriented, Gross neurological examination did not reveal any focal deficits. Psych: well appearing, appropriate affect Assessment/Plan: Patient is a 59 year old male with past medical history of coronary artery disease with prior stenting, diabetes mellitus, hypothyroidism status post thyroidectomy presents to the ED with chest pain. Patient admitted to internal medicine service. Active: #. Chest pain #. History of CAD with prior stenting to LAD in 2019 EKG independently interpreted as sinus rhythm; J point elevation in V2, V3; T wave inversion in leads II, III, aVF, V5, V6 Chest x-ray shows no acute cardiopulmonary disease/process troponin I 0.018, 0.017 TSH 58.3, Free T4 0.75, A1c 7.6 Lipid panel triglycerides 145, cholesterol 121, LDL 59, VLDL 29, HDL 33 Echocardiogram obtained in August 2024 showed EF 50 to 55%, mild LA dilatation Received aspirin 324 mg, atorvastatin 80 mg in the ED Continue Heparin drip Initiate Aspirin 81 mg PO daily Continue Lipitor 80 mg PO daily, Metoprolol 25 mg PO BID Continue Nitroglycerin 0.4 mg SL Q5M PRN Continue to trend troponin Continue telemetry monitoring Cardiology consulted #. COPD exacerbation #. Recent community acquired pneumonia #. Leukocytosis, likely due to above #. Obstructive Sleep apnea on CPAP #. Chronic hypercapnic respiratory failure Outpatient treatment with Prednisone and antibiotics 4-5 days ago Initiate Duonebs Initiate Solumedrol 40 mg IV Q8HR Continue supplemental oxygen as required Monitor CBC #. MARJORIE BUN 22, creatinine 1.40 Hold home med Losartan Abdominal ultrasound obtained in September 23 showed no hydronephrosis or nephrolithiasis Monitor BMP #. Type 2 diabetes mellitus A1c 7.6 Insulin sliding scale and ACHS blood glucose monitoring Monitor for hypoglycemia Hold home med Metformin Chronic: #. Ischemic cardiomyopathy, EF 50-55% (09/23) #. Hyperlipidemia #. Hypothyroidism secondary to Thyroidectomy Continue Zetia 10 mg p.o. daily, levothyroxine 200 mcg p.o. daily F: None E: Replete as required N: Heart healthy diet A: Ambulatory DVT prophylaxis: Heparin drip The patient is admitted with an anticipated less than 2 midnight stay for evaluation of chest pain CODE STATUS: Full code Discussed with: Patient Anticipated discharge place: Pending clinical course Dictation was produced using [employer] dictation software. please excuse any grammatical, word or spelling errors. Clyde Soto MD PGY-1 IM Attestation : Patient seen and examined with medical center director. Agree with above assessment and plan. This is a 59-year-old male patient with a past medical history of type 2 diabetes mellitus, ischemic cardiomyopathy with ejection fraction of 50 to 55%, dyslipidemia, hypothyroidism secondary to thyroidectomy and history of coronary artery disease status post PCI and stenting to the LAD in 2019 at [facility] presenting with substernal, pressure-like chest pain . EKG no ischemic changes. 2 sets of troponin were not elevated. His last stress test was a year ago and it was a chemical stress test which was not remarkable per patient. Cardiology is consulted from the ED. His last echo was in August 2024 showing normal left ventricular function. Patient wheezing on exam with reports of being treated for community-acquired pneumonia recently . He does report using his inhaler frequently the past few days with dyspnea on exertion. Will continue with scheduled DuoNebs and IV Solu-Medrol . No significant phlegm production . Chest x-ray not remarkable. Patient not hypoxic and not requiring oxygen. Patient will be admitted as observation Time spent : 45 min Past Medical History Past Medical History: Coronary Artery Disease (CAD), Diabetes Mellitus, Thyroid Disorder Additional Past Medical History / Comment(s): Pt is very somnolent, did History of Any Multi-Drug Resistant Organisms: None Reported Past Surgical History: Heart Catheterization With Stent Additional Past Surgical History / Comment(s): thyoidectomy Date of Last Stent Placement:: unknown Past Psychological History: No Psychological Hx Reported Smoking Status: Current every day smoker Past Alcohol Use History: None Reported Past Drug Use History: None Reported Medications and Allergies Home Medications Medication Instructions Recorded Confirmed Type Levothyroxine Sodium 200 mcg PO DAILY #30 tab 09/08/24 11/15/24 Rx metFORMIN HCL 500 mg PO DAILY 09/08/24 11/15/24 History Dorzolamide-Timol 2.23%/0.68% 1 drop BOTH EYES BID 09/14/24 11/15/24 History [Cosopt] Ezetimibe [Zetia] 10 mg PO DAILY #30 tab 09/16/24 11/15/24 Rx Losartan [Cozaar] 25 mg PO DAILY #30 tab 09/16/24 11/15/24 Rx Aspirin EC [Ecotrin] 162.5 mg PO DAILY 11/15/24 11/15/24 History Lipitor (Unkown Strength) 1 dose PO DIRECTED 11/15/24 11/15/24 History Metoprolol Succinate (Unknown 1 dose PO DIRECTED 11/15/24 11/15/24 History Strength) Nicotine 21Mg/24Hr Patch [Habitrol] 1 patch TRANSDERM DAILY PRN 11/15/24 11/15/24 History Nicotine Polacrilex [Nicotine Gum] 4 mg BUCCAL Q2H PRN 11/15/24 11/15/24 History Varenicline [Chantix Continuing 1 mg PO DIRECTED 11/15/24 11/15/24 History Pack] Varenicline [Chantix Starter Pack] 1 dose PO DIRECTED 11/15/24 11/15/24 History Allergies Allergy/AdvReac Type Severity Reaction Status Date / Time No Known Allergies Allergy Verified 11/15/24 19:21 Physical Exam Vitals: Vital Signs Temp Pulse Resp BP Pulse Ox 11/15/24 15:41 97.7 F 68 22 146/78 97 Intake and Output 11/15/24 11/15/24 11/15/24 06:59 14:59 22:59 Other: Weight 108.862 kg Results CBC & Chem 7: 11/15/24 16:42 11/15/24 16:42 Labs: Abnormal Lab Results - Last 24 Hours (Table) 11/15/24 11/15/24 Range/Units 16:42 16:42 WBC 10.42 H (4.50-10.00) 10*3/uL Eosinophils # 0.44 H (0.04-0.35) 10*3/uL Basophils # 0.11 H (0.00-0.10) 10*3/uL BUN 22 H (9-20) mg/dL Creatinine 1.40 H (0.66-1.25) mg/dL Glucose 211 H (74-99) mg/dL
[2024-11-15 21:14] LABS: Glucose,Whole Blood 158 mg/dL (70-110)
[2024-11-15] MEDS: INSULIN LISPRO (HumaLOG) 100 UNIT/ML 10 mL VL SQ SCH (21:18)
[2024-11-15] MEDS: METOPROLOL TARTRATE 25 MG TAB PO SCH (21:18)
[2024-11-15] MEDS: methylPREDNISolone SOD SUCCI 40 MG/ML 1 ML VIAL IV SCH (22:38)
[2024-11-16] MEDS ORDERED: methylPREDNISolone SOD SUCCI 40 MG/ML 1 ML VIAL IV SCH
[2024-11-16 01:51] LABS: HCT 38.6 % (39.6-50.0); HGB 12.4 g/dL (13.0-17.0); MCH 28.9 pg (27.0-32.0); MCHC 32.1 g/dL (32.0-37.0); Mean Platelet Volume 10.1 fL (9.5-12.2); Platelet Count 377 10*3/uL (140-440); RBC 4.29 10*6/uL (4.40-5.60); RDW 14.4 % (11.5-14.5); WBC 10.01 10*3/uL (4.50-10.00)
[2024-11-16 02:09] LABS: African American GFR (CKD) 73 (>60 ml/min/1.73 sqM); Anion Gap 11 mmol/L; Blood Urea Nitrogen 21 mg/dL (9-20); Calcium 9.4 mg/dL (8.4-10.2); Carbon Dioxide 27 mmol/L (22-30); Chloride 98 mmol/L (98-107); Glucose 156 mg/dL (74-99); Non-African American GFR(CKD) 64 (>60 ml/min/1.73 sqM); Potassium 3.7 mmol/L (3.5-5.1); Sodium 136 mmol/L (137-145)
[2024-11-16] MEDS: HEPARIN SODIUM 1,000 UN/ML (10ML VL) IV PRN (03:18)
[2024-11-16] MEDS: LEVOTHYROXINE 100 MCG TAB PO SCH (06:25)
[2024-11-16 06:28] LABS: Glucose,Whole Blood 238 mg/dL (70-110)
[2024-11-16] MEDS: IPRATROPIUM-ALBUTEROL 3 ML NEB INHALATION SCH (08:07)
[2024-11-16] MEDS ORDERED: NICOTINE 21MG/24HR PATCH TRANSDERM PRN (08:35)
[2024-11-16] MEDS: ASPIRIN 81 MG PO SCH (08:36)
[2024-11-16] MEDS: EZETIMIBE 10 MG TAB PO SCH (08:36)
[2024-11-16] MEDS: LOSARTAN 25 MG TAB PO SCH (08:45)
[2024-11-16] MEDS ORDERED: ASPIRIN 325 MG TAB PO SCH (09:00)
[2024-11-16] MEDS ORDERED: CAFFEINE CITRATE 60 MG/3 ML VIAL IV PRN (09:03)
[2024-11-16] MEDS ORDERED: REGADENOSON 0.4 MG/5 ML SYRINGE IV PRN (09:03)
[2024-11-16] MEDS ORDERED: AMINOPHYLLINE 500 MG/20 ML VIAL IV PRN (09:03)
[2024-11-16] MEDS: DORZOLAMIDE-TIMOLOL 2.23%/0.68 10ML BTL BOTH EYES SCH (09:25)
--- NOTE | 2024-11-16 10:28 | P.CRDCN ---
History of Present Illness History of present illness: HISTORY OF PRESENT ILLNESS: This is a 59-year-old male with a past medical history significant for coronary artery disease with previous stenting, hypertension, hyperlipidemia, ADHD, hypo thyroidism, and obstructive sleep apnea with CPAP use. Patient follows in the office with Dr. Eli but has not been seen since August 2022. We have been asked to see the patient in consultation for chest pain. Patient examined at the bedside in the emergency room. Patient states he was driving to have lunch when he began to have chest pain. He states he has had pain similar to this in the past. He states it is somewhat similar to when he required stenting but not as intense. He does report radiation into his back. He states that once he got to the hospital and was in the air conditioning the cool air helped his pain and he has had no further episodes of chest pain since that time. He does report having some dizziness 2 nights ago as well. He reports chronic shortness of breath that is not worse than his baseline. He states that he is a cigarette smoker and is trying to quit and states he has not smoked in 1 week. He denies any drugs or alcohol use. He states that he is not very active on a daily basis. DIAGNOSTICS: - EKG reveals sinus mechanism with T wave inversions in inferior lateral leads, unchanged from previous EKGs. - Chest xray negative for acute process. - Laboratory data: WBC 10.01. Hemoglobin 12.4. Platelet count 377. Sodium 136. Potassium 3.7. BUN 21. Creatinine 1.25. Troponin negative x 3 - Current home cardiac medications include Zetia 10 mg daily, losartan 25 mg daily, aspirin 162.5 mg daily, metoprolol succinate dose unknown and Lipitor do se unknown. - Most recent echocardiogram obtained in August 2024 reveals ejection fraction 50 to 55%, trace mitral regurgitation - Patient underwent Lexiscan stress test in May 2022 revealing fixed lateral perfusion defect consistent with prior myocardial infarction in the circumflex territory. No reversible myocardial perfusion defect to suggest ischemia. REVIEW OF SYSTEMS: At the time of my exam: CONSTITUTIONAL: Denies fever or chills. HEENT: Denies blurred vision, vision changes, or eye pain. Denies hemoptysis CARDIOVASCULAR: Denies chest pain. Denies orthopnea. Denies PND. Denies p alpitations RESPIRATORY: Denies shortness of breath. GASTROINTESTINAL: Denies abdominal pain. Denies nausea or vomiting. HEMATOLOGIC: Denies bleeding disorders. GENITOURINARY: Denies any blood in urine. SKIN: Denies pruitis. Denies rash. PHYSICAL EXAM: VITAL SIGNS: Reviewed. GENERAL: Well-developed in no acute distress. HEENT: Head is normocephalic. Pupils are equal, round. Sclerae anicteric. Mucous membranes of the mouth are moist. Neck supple. No JVD or thyromegaly LUNGS: Respirations even and unlabored. Lungs essentially clear to auscultation bilaterally. HEART: Regular rate and rhythm. S1 and S2 heard. ABDOMEN: Soft. Nondistended. Nontender. EXTREMITIES: Normal range of motion. No clubbing or cyanosis. Peripheral pulses intact. No lower extremity edema NEUROLOGIC: Awake and alert. Oriented x 3. ASSESSMENT: Chest pain Coronary artery disease with previous stenting of LAD in 2019 performed at [facility] Hypertension Hyperlipidemia Diabetes Obstructive sleep apnea with CPAP use Nicotine dependence with recent cessation. Patient states he has not smoked in 1 week History of medication noncompliance History of ADHD Obesity: BMI 30.8 PLAN: An acute coronary event has been ruled out No need to repeat echocardiogram as this was performed in August 2024 Discontinue IV heparin Resume home cardiac medications Patient to undergo Lexiscan stress test today If negative, patient may be discharged home from a cardiac standpoint Patient to follow-up postdischarge in the office with Dr. Eli Nurse practitioner note has been reviewed by physician. Signing provider agrees with the documented findings, assessment, and plan of care documented by [employer] as a scribe. Past Medical History Past Medical History: Coronary Artery Disease (CAD), Diabetes Mellitus, Thyroid Disorder Additional Past Medical History / Comment(s): Pt is very somnolent, did History of Any Multi-Drug Resistant Organisms: None Reported Past Surgical History: Heart Catheterization With Stent Additional Past Surgical History / Comment(s): thyoidectomy Date of Last Stent Placement:: unknown Past Psychological History: No Psychological Hx Reported Smoking Status: Current every day smoker Past Alcohol Use History: None Reported Past Drug Use History: None Reported Medications and Allergies Home Medications Medication Instructions Recorded Confirmed Type Levothyroxine Sodium 200 mcg PO DAILY #30 tab 09/08/24 11/15/24 Rx metFORMIN HCL 500 mg PO DAILY 09/08/24 11/15/24 History Dorzolamide-Timol 2.23%/0.68% 1 drop BOTH EYES BID 09/14/24 11/15/24 History [Cosopt] Ezetimibe [Zetia] 10 mg PO DAILY #30 tab 09/16/24 11/15/24 Rx Losartan [Cozaar] 25 mg PO DAILY #30 tab 09/16/24 11/15/24 Rx Aspirin EC [Ecotrin] 162.5 mg PO DAILY 11/15/24 11/15/24 History Lipitor (Unkown Strength) 1 dose PO DIRECTED 11/15/24 11/15/24 History Metoprolol Succinate (Unknown 1 dose PO DIRECTED 11/15/24 11/15/24 History Strength) Nicotine 21Mg/24Hr Patch [Habitrol] 1 patch TRANSDERM DAILY PRN 11/15/24 11/15/24 History Nicotine Polacrilex [Nicotine Gum] 4 mg BUCCAL Q2H PRN 11/15/24 11/15/24 History Varenicline [Chantix Continuing 1 mg PO DIRECTED 11/15/24 11/15/24 History Pack] Varenicline [Chantix Starter Pack] 1 dose PO DIRECTED 11/15/24 11/15/24 History Allergies Allergy/AdvReac Type Severity Reaction Status Date / Time No Known Allergies Allergy Verified 11/15/24 19:21 Physical Exam Vitals: Vital Signs Temp Pulse Resp BP Pulse Ox FiO2 11/16/24 10:00 65 16 145/80 98 11/16/24 08:16 63 11/16/24 08:08 65 11/16/24 08:00 64 20 130/75 98 11/16/24 06:00 62 17 134/73 99 11/16/24 04:30 21 11/16/24 00:18 21 11/16/24 00:00 60 16 119/77 98 11/15/24 22:54 21 11/15/24 22:00 66 18 120/69 96 11/15/24 19:24 66 18 140/96 96 11/15/24 15:41 97.7 F 68 22 146/78 97 Intake and Output 11/15/24 11/16/24 11/16/24 22:59 06:59 14:59 Intake Total 82.117 74.913 Balance 82.117 74.913 Intake: Intake, IV Titration 82.117 74.913 Amount Heparin Sod,Pork in 0.45% 82.117 74.913 NaCl 25,000 unit In 0.45 % NaCl 1 250ml.bag @ 9.18 UNITS/KG/HR 9.994 mls/hr IV .Q24H [facility] Rx#: [id number] Other: Weight 108.862 kg Results 11/16/24 00:41 11/16/24 00:41 Cardiac Enzymes 11/15/24 11/15/24 11/15/24 Range/Units 16:42 16:42 18:24 AST 19 (17-59) U/L Troponin I 0.018 0.017 (0.000-0.034) ng/mL 11/15/24 Range/Units 21:20 AST (17-59) U/L Troponin I 0.020 (0.000-0.034) ng/mL Coagulation 11/15/24 11/15/24 11/16/24 Range/Units 16:42 18:24 00:41 PT 10.8 (10.0-12.5) sec APTT 24.4 24.5 25.9 (22.0-30.0) sec 11/16/24 Range/Units 07:49 PT (10.0-12.5) sec APTT 34.1 H (22.0-30.0) sec CBC 11/15/24 11/16/24 Range/Units 16:42 00:41 WBC 10.42 H 10.01 H (4.50-10.00) 10*3/uL RBC 4.72 4.29 L (4.40-5.60) 10*6/uL Hgb 13.8 12.4 L (13.0-17.0) g/dL Hct 42.0 38.6 L (39.6-50.0) % Plt Count 407 377 (140-440) 10*3/uL Comprehensive Metabolic Panel 11/15/24 11/16/24 Range/Units 16:42 00:41 Sodium 137 136 L (137-145) mmol/L Potassium 4.0 3.7 (3.5-5.1) mmol/L Chloride 100 98 (98-107) mmol/L Carbon Dioxide 28 27 (22-30) mmol/L BUN 22 H 21 H (9-20) mg/dL Creatinine 1.40 H 1.25 (0.66-1.25) mg/dL Glucose 211 H 156 H (74-99) mg/dL Calcium 9.3 9.4 (8.4-10.2) mg/dL AST 19 (17-59) U/L ALT 46 (4-49) U/L Alkaline Phosphatase 81 (38-126) U/L Total Protein 6.9 (6.3-8.2) g/dL Albumin 4.2 (3.5-5.0) g/dL Current Medications Generic Name Dose Route Start Last Admin Trade Name Freq PRN Reason Stop Dose Admin Albuterol/Ipratropium 3 ml 11/16/24 08:00 11/16/24 08:07 Ipratropium-Albuterol 3 Ml Neb INHALATION 3 ml RT-QID SACHIN Administration Aminophylline 100 mg 11/16/24 09:03 Aminophylline 500 Mg/20 Ml Vial IV 11/16/24 13:03 ONCE PRN Patient Response Aspirin 81 mg 11/16/24 09:00 11/16/24 08:36 Aspirin 81 Mg PO 81 mg DAILY SACHIN Administration Atorvastatin Calcium 80 mg 11/15/24 18:15 11/16/24 08:36 Atorvastatin 80 Mg Tab PO 80 mg DAILY SACHIN Administration Caffeine Citrate 60 mg 11/16/24 09:03 Caffeine Citrate 60 Mg/3 Ml Vial IV 11/16/24 13:03 ONCE PRN Patient Response Dextrose/Water 25 ml 11/15/24 19:47 Dextrose 50% Syringe 50 Ml IVP PER PROTOCOL PRN Hypoglycemia Protocol Dextrose/Water 50 ml 11/15/24 19:47 Dextrose 50% Syringe 50 Ml IVP PER PROTOCOL PRN Hypoglycemia Protocol Dorzolamide/Timolol 1 drops 11/16/24 09:00 11/16/24 09:25 Dorzolamide-Timolol 2.23%/0.68 10ml Btl BOTH EYES 1 drops BID SACHIN Administration Ezetimibe 10 mg 11/16/24 09:00 11/16/24 08:36 Ezetimibe 10 Mg Tab PO 10 mg DAILY SACHIN Administration Heparin Sodium (Porcine) 0 unit 11/16/24 03:06 11/16/24 03:18 Heparin Sodium 1,000 Un/Ml (10ml Vl) IV 4,000 unit PER PROTOCOL PRN Administration Low PTT Protocol Insulin Human Lispro 0 unit 11/15/24 21:00 11/16/24 08:37 Insulin Lispro (Humalog) 100 Unit/Ml 10 Ml Vl SQ 4 unit ACHS SACHIN Administration Protocol Levothyroxine Sodium 200 mcg 11/16/24 06:30 11/16/24 06:25 Levothyroxine 100 Mcg Tab PO 200 mcg DAILY@0630 SACHIN Administration Losartan Potassium 25 mg 11/16/24 09:00 11/16/24 08:45 Losartan 25 Mg Tab PO 25 mg DAILY SACHIN Administration Methylprednisolone Sodium Succinate 40 mg 11/15/24 21:30 11/16/24 08:37 Methylprednisolone Sod Succi 40 Mg/Ml 1 Ml Vial IV 40 mg Q12HR SACHIN Administration Metoprolol Tartrate 25 mg 11/15/24 21:00 11/16/24 08:36 Metoprolol Tartrate 25 Mg Tab PO 25 mg BID SACHIN Administration Morphine Sulfate 4 mg 11/15/24 18:01 Morphine Sulfate 4 Mg/Ml Syringe IV Q4HR PRN Chest Pain Nicotine 1 patch 11/16/24 08:35 Nicotine 21mg/24hr Patch TRANSDERM DAILY PRN Nicotine Cravings Nitroglycerin 0.4 mg 11/15/24 18:01 Nitroglycerin Sl Tabs 0.4 Mg Tab SUBLINGUAL Q5M PRN Chest Pain Regadenoson 0.4 mg 11/16/24 09:03 Regadenoson 0.4 Mg/5 Ml Syringe IV 11/16/24 13:03 ONCE PRN Per Protocol Intake and Output 11/15/24 11/16/24 11/16/24 22:59 06:59 14:59 Intake Total 82.117 74.913 Balance 82.117 74.913 Intake: Intake, IV Titration 82.117 74.913 Amount Heparin Sod,Pork in 0.45% 82.117 74.913 NaCl 25,000 unit In 0.45 % NaCl 1 250ml.bag @ 9.18 UNITS/KG/HR 9.994 mls/hr IV .Q24H [facility] Rx#: [id number] Other: Weight 108.862 kg 11/16/24 00:41 11/16/24 00:41
[2024-11-16 12:20] LABS: Glucose,Whole Blood 137 mg/dL (70-110)
--- NOTE | 2024-11-16 12:21 | NM ---
EXAMINATION TYPE: NM stress lexiscan cardiolite DATE OF EXAM: 11/16/2024 COMPARISON: NONE CLINICAL INDICATION: Male, 59 years old with history of CP, TECHNIQUE: After the intravenous administration of 10.16 mCi Tc 99m Sestamibi - Cardiolite resting S PECT images acquired 45 minutes post injection. At peak stress 26.5 mCi Tc 99m Sestamibi - Stress images obtained 30 minutes post injection The patient was stressed with 0.4mg Lexiscan. FINDINGS: There is a large fixed defect extending from the cardiac base to the cardiac apex through the lateral and inferior lateral stack. This appears matched on resting and stress images. Stress images have so me diminished radiotracer accumulation at the inferior lateral wall of the cardiac apex which is not matched with the resting images. Some mild ravinder-infarct ischemic change may be present. There is some global hypokinesia. Some dilatation of the distal left ventricle is present Ejection fraction is calculated to be 42 % which is low. Normal greater than 50%. IMPRESSION: 1. Large stress-induced ischemic change lateral wall compatible with prior infarct. 2. Some mild reversibility at the inferior lateral wall of the cardiac apex may be present. Some ravinder -infarct ischemic change could be considered. 3. Global hypokinesia with a low ejection fraction of 42%. [facility], , 11/16/2024 12:19 PM
[2024-11-16] MEDS ORDERED: ALPRAZolam 0.25 MG TAB PO PRN (12:51)
[2024-11-16] MEDS ORDERED: NITROGLYCERIN SL TABS 0.4 MG TAB SUBLINGUAL PRN (12:51)
[2024-11-16] MEDS ORDERED: ALPRAZolam 0.5 MG TAB PO PRN (12:51)
--- NOTE | 2024-11-16 14:35 | P.PN ---
Subjective Progress Note Date: 11/16/24 Hospital course: Patient is a very pleasant 59-year-old male with a past medical history of CAD status post stenting of LAD in 2019, hypertension, hyperlipidemia, hypothyroidism, and [id number] diabetes mellitus. He presented to our facility on 11/15/2024 secondary to a chief complaint of chest pain. Upon arrival to our facility, patient underwent evaluation in the emergency department. Vital signs upon arrival show blood pressure 146/78, heart rate 68, respiratory, temp 97.7 F, and SpO2 of 97% on room air EKG completed showing normal sinus rhythm at 70 bpm with T wave inversion to inferior/lateral leads including 2, 3, aVF and V5 and V6. Chest x-ray completed negative for acute cardiopulmonary process. Cytosis with WBC count of 10.42 otherwise normal f indings. Coagulation profile normal findings. BMP showing slight elevation of renal function with BUN of 22, creatinine of 1.40, GFR 55 with baseline creatinine of 1.2. Calcium 9.3. Magnesium 1.8. Liver profile unremarkable. Troponin 0.018. Patient was started on low intensity heparin infusion for treatment of unstable angina. He was admitted under our services with consultation to cardiology. Troponins resulting at 0.018, 0.017, and 0.020. Lexiscan stress test completed showing large stress-induced ischemic changes to lateral with prior infarct and some mild reversibility at the inferior lateral wall of the cardiac apex with global hypokinesia and a low ejection fraction of 42%. Physical exam: Patient was seen and fully evaluated in ER room 9 shortly after returning from stress testing. He currently reports feeling well he reports during the stress test and immediately after feeling severe nausea but states that has subsided. He currently denies any further episodes of chest pain, palpitations, or shortness of breath. Vital signs reviewed and stable. General: Nontoxic, no distress and appears stated age. Derm: Skin warm and dry, normal coloration for ethnicity. Head: Atraumatic, normocephalic and symmetric. Eyes: EOM's intact, no lid lag, and anicteric sclera Mouth: no lip lesions, mucus membranes moist Cardiovascular: regular rate and rhythm with normal S1S2, no murmur, positive posterior tibial pulses bilaterally, and cap refill < 2 seconds. Lungs: Respirations even, regular, and unlabored on room air. Lungs CTA bilaterally, no rhonchi, no rales, no wheezing, and no accessory muscle usage. Abdominal: soft, nontender to palpation, no guarding, no appreciable organomegaly Ext: ROM intact. No gross muscle atrophy, no edema, no contractures Neuro: Speech clear, face symmetrical and CN II-XII grossly intact with no noted focal neuro deficits Psych: Alert and oriented to person, place, time, and situation. Appropriate and pleasant affect. Assessment and Plan of Care: Chest pain, unstable angina CAD status post previous stenting Hypertension Hyperlipidemia -Cardiology following, discussed plan of care with cardiac CORPORATE COUNSELOR. -Telemetry monitoring -Troponins resulting at 0.018, 0.017, and 0.020. -Lexiscan stress test completed showing large stress-induced ischemic changes to lateral with prior infarct and some mild reversibility at the inferior lateral wall of the cardiac apex with global hypokinesia and a low ejection fraction of 42%. -Cardiac diet, NPO at midnight -Aspirin 81 mg daily, atorvastatin 80 mg daily, losartan 25 mg daily, metoprolol 25 mg twice daily, and as needed sublingual nitroglycerin. Obstructive sleep apnea Continue CPAP nightly and while napping. Type II gra-vqdakic-nqzmfrwmj diabetes mellitus Hold metformin and continue with glycemic protocol with Humalog sliding scale. Hypothyroidism Continue daily medication regimen with levothyroxine 200 mcg daily. Data and imaging reviewed: -Labs reviewed. CBC showing WBC count of 10.01 and hemoglobin of 12.4. Coagulation profile showing a subtherapeutic PTT of 34.1. BMP showing improvement of renal function with BUN of 21, creatinine of 1.25, GFR of 64. Blood glucose was 156. Troponins resulting at 0.018, 0.017, and 0.020. -Lexiscan stress test completed showing large stress-induced ischemic changes to lateral with prior infarct and some mild reversibility at the inferior lateral wall of the cardiac apex with global hypokinesia and a low ejection fraction of 42%. -Vital signs completed and reviewed. Blood pressure 123/72, heart rate 80, respiratory rate 18, and SpO2 of 97% on room air. CODE STATUS: Full code DVT prophylaxis: Heparin Discussed with: Patient, RN, and cardiology CORPORATE COUNSELOR Anticipated discharge date: Pending clinical course Anticipated discharge place: Home Patient was seen independently by Nurse Pracitioner. This document was prepared using [employer] dictation software. Please allow for errors in maintenance analyst, while rare they do occur. Sheldon Alvarez NP rendered care for this patient independently, reviewed the findings and plan as documented in the note above and agree with plan. I did not physically speak with or examine the patient on this date. Objective - Vital Signs Vital signs: Vital Signs Temp 97.7 F 11/15/24 15:41 Pulse 63 11/16/24 08:16 Resp 20 11/16/24 08:00 BP 130/75 11/16/24 08:00 Pulse Ox 98 11/16/24 08:00 FiO2 21 11/16/24 04:30 Intake & Output 11/15/24 11/16/24 11/16/24 18:59 06:59 18:59 Intake Total 82.117 Balance 82.117 Weight 108.862 kg Intake: Intake, IV Titration 82.117 Amount Heparin Sod,Pork in 0.45% 82.117 NaCl 25,000 unit In 0.45 % NaCl 1 250ml.bag @ 9.18 UNITS/KG/HR 9.994 mls/hr IV .Q24H [facility] Rx#: [id number] - Labs CBC & Chem 7: 11/16/24 00:41 11/16/24 00:41 Labs: Abnormal Lab Results - Last 24 Hours (Table) 11/15/24 11/15/24 11/15/24 Range/Units 16:42 16:42 21:12 WBC 10.42 H (4.50-10.00) 10*3/uL RBC (4.40-5.60) 10*6/uL Hgb (13.0-17.0) g/dL Hct (39.6-50.0) % Eosinophils # 0.44 H (0.04-0.35) 10*3/uL Basophils # 0.11 H (0.00-0.10) 10*3/uL APTT (22.0-30.0) sec Sodium (137-145) mmol/L BUN 22 H (9-20) mg/dL Creatinine 1.40 H (0.66-1.25) mg/dL Glucose 211 H (74-99) mg/dL POC Glucose (mg/dL) 158 H (70-110) mg/dL 11/16/24 11/16/24 11/16/24 Range/Units 00:41 00:41 06:27 WBC 10.01 H (4.50-10.00) 10*3/uL RBC 4.29 L (4.40-5.60) 10*6/uL Hgb 12.4 L (13.0-17.0) g/dL Hct 38.6 L (39.6-50.0) % Eosinophils # (0.04-0.35) 10*3/uL Basophils # (0.00-0.10) 10*3/uL APTT (22.0-30.0) sec Sodium 136 L (137-145) mmol/L BUN 21 H (9-20) mg/dL Creatinine (0.66-1.25) mg/dL Glucose 156 H (74-99) mg/dL POC Glucose (mg/dL) 238 H (70-110) mg/dL 11/16/24 Range/Units 07:49 WBC (4.50-10.00) 10*3/uL RBC (4.40-5.60) 10*6/uL Hgb (13.0-17.0) g/dL Hct (39.6-50.0) % Eosinophils # (0.04-0.35) 10*3/uL Basophils # (0.00-0.10) 10*3/uL APTT 34.1 H (22.0-30.0) sec Sodium (137-145) mmol/L BUN (9-20) mg/dL Creatinine (0.66-1.25) mg/dL Glucose (74-99) mg/dL POC Glucose (mg/dL) (70-110) mg/dL
[2024-11-16 17:11] LABS: Glucose,Whole Blood 266 mg/dL (70-110)
[2024-11-16] MEDS: METOPROLOL SUCCINATE (ER) 25 MG TAB.ER.24H PO STA (17:25)
--- NOTE | 2024-11-16 19:49 | CA ---
Lexiscan Nuclear Stress Test Report Name: Gerson Finn Exam Date: 11/16/2024 10:34 Exam Location: [facility] Ht (in): 74 Wt (lb): 240 BSA: 2.35 Ordering Phys: Josie Cardona Referring Phys: SILVINO Technologist: TRUE WELLS Age: 59 Gender: M : 1965 Procedure CPT: Indications: Reflex order-Stress test ICD-10 Codes: Patient History: CHEST PAIN, DIFFICULTY IN BREATHING, PALPITATIONS, ANGINA, HTN, HYPERCHOLESTEROLEMIA, FAMILY HX OF HEART DISEASE, CURRENT SMOKER 1 PPD X 20 YEARS, PRIOR HEART CATH, COPD Medications: Meds past 24 hrs: Pretest Chest Pain: STRESS TEST Lexiscan Protocol Exercise Duration (min:sec): 02:[address] Depressions (mm): Angina Score: Claudio Score: Resting HR (bpm): 64 Peak HR (bpm): 80 Resting BP (mmHg): 115 / 73 Peak BP (mmHg): 130 / 71 MPHR: 162 Target HR: 138 % MPHR: 49 METS: 1.0 Total Dose: Peak Dose: Atropine: Double Product: 39014 BP Response: Stress Termination: INFUSION COMPLETE Stress Symptoms: NAUSEA Stress Summary: ECG ANALYSIS Resting ECG: Sinus rhythm. Normal conduction. No arrhythmias. Non-specific ST-T wave changes. Stress ECG: No ECG changes from baseline with Lexiscan infusion. CONCLUSIONS No ECG evidence of ischemia with Lexiscan infusion. Nuclear test results to follow. Dr. Kylee Rudolph MD (Electronically Signed) Final Date: 16 November 2024 19:48
[2024-11-16 21:19] LABS: Glucose,Whole Blood 263 mg/dL (70-110)
[2024-11-16] MEDS: SODIUM CHLORIDE 0.9% 1,000 ML in EMPTY BAG 1 BAG IV SCH (23:54)
[2024-11-17 06:07] LABS: Glucose,Whole Blood 225 mg/dL (70-110)
[2024-11-17] MEDS: ATORVASTATIN 80 MG TAB PO ONE (06:12)
[2024-11-17] MEDS: ASPIRIN 325 MG TAB PO ONE (06:12)
[2024-11-17] MEDS ORDERED: HEPARIN SODIUM,PORCINE (1 ML) 2,500 UNIT in SODIUM CHLORIDE 0.9% 250 ML IRRIGATION PRN (07:00)
[2024-11-17] MEDS ORDERED: HEPARIN SODIUM,PORCINE 10,000 UNIT in SODIUM CHLORIDE 0.9% 1,000 ML IRRIGATION PRN (07:00)
[2024-11-17] MEDS: METOPROLOL SUCCINATE (ER) 100 MG TAB.ER.24H PO SCH (08:17)
[2024-11-17 08:35] LABS: Magnesium 1.9 mg/dL (1.5-2.4)
[2024-11-17 08:39] LABS: BUN/Creat Ratio 17.75 Ratio (12.00-20.00); Blood Urea Nitrogen 21.3 mg/dL (9.0-27.0); Carbon Dioxide 22.3 mmol/L (21.6-31.8); Chloride 102 mmol/L (96-109); Glucose 250 mg/dL (70-110); Potassium 5.1 mmol/L (3.5-5.5); Sodium 135 mmol/L (135-145)
[2024-11-17 08:40] LABS: Calcium 8.8 mg/dL (8.7-10.3)
[2024-11-17 08:54] LABS: HCT 40.5 % (39.6-50.0); HGB 12.8 g/dL (13.0-17.0); MCH 28.1 pg (27.0-32.0); MCHC 31.6 g/dL (32.0-37.0); Mean Platelet Volume 10.8 FL (9.5-12.2); NRBC Per 100 WBC 0 X 10*3/uL (0.00-0.01); Platelet Count 411 X 10*3/uL (140-440); RBC 4.55 X 10*6/uL (4.40-5.60)
[2024-11-17] MEDS: fentaNYL (PF) 50 MCG/1 ML VIAL IVP ONE (10:28)
[2024-11-17] MEDS: IV FLUID CONTINUATION 1,000 ML IV ONE (10:29)
[2024-11-17] MEDS: LIDOCAINE 1% INJ 10MG/ML (30 ML VIAL-PF) SQ ONE (10:34)
[2024-11-17] MEDS: VERAPAMIL SYRINGE (5 MG/10 ML) INTRAARTER ONE (10:35)
[2024-11-17] MEDS: MIDAZOLAM 2 MG/2 ML VIAL IVP ONE (10:35)
[2024-11-17] MEDS: HEPARIN SODIUM 1,000 UN/ML (10ML VL) IVP ONE (10:35)
--- NOTE | 2024-11-17 10:53 | P.PN ---
Subjective HISTORY OF PRESENT ILLNESS: This is a 59-year-old male with a past medical history significant for coronary artery disease with previous stenting, hypertension, hyperlipidemia, ADHD, hypothyroidism, and obstructive sleep apnea with CPAP use. Patient follows in the office with Dr. Eli but has not been seen since August 2022. We have been asked to see the patient in consultation for chest pain. Patient examined at the bedside in the emergency room. Patient states he was driving to have lunch when he began to have chest pain. He states he has had pain similar to this in the past. He states it is somewhat similar to when he required stenting but not as intense. He does report radiation into his back. He states that once he got to the hospital and was in the air conditioning the cool air helped his pain and he has had no further episodes of chest pain since that time. He does report having some dizziness 2 nights ago as well. He reports chronic shortness of breath that is not worse than his baseline. He states that he is a cigarette smoker and is trying to quit and states he has not smoked in 1 week. He denies any drugs or alcohol use. He states that he is not very active on a daily basis. DIAGNOSTICS: - EKG reveals sinus mechanism with T wave inversions in inferior lateral leads, unchanged from previous EKGs. - Chest xray negative for acute process. - Laboratory data: WBC 10.01. Hemoglobin 12.4. Platelet count 377. Sodium 136. Potassium 3.7. BUN 21. Creatinine 1.25. Troponin negative x 3 - Current home cardiac medications include Zetia 10 mg daily, losartan 25 mg daily, aspirin 162.5 mg daily, metoprolol succinate dose unknown and Lipitor dose unknown. - Most recent echocardiogram obtained in August 2024 reveals ejection fraction 50 to 55%, trace mitral regurgitation - Patient underwent Lexiscan stress test in May 2022 revealing fixed lateral perfusion defect consistent with prior myocardial infarction in the circumflex territory. No reversible myocardial perfusion defect to suggest isch emia. 11/17/2024 Patient is status post Lexiscan stress test revealing large stress-induced ischemic changes lateral wall compatible with prior infarct. Some mild reversibility at the inferior lateral wall of the cardiac apex may be present. Some ravinder-infarct ischemic changes could be considered. Patient examined this morning the bedside. He denies any further episodes of chest pain or pressure. He denies any shortness of breath. Vital signs are stable. PHYSICAL EXAM: VITAL SIGNS: Reviewed. GENERAL: Well-developed in no acute distress. HEENT: Head is normocephalic. Pupils are equal, round. Sclerae anicteric. Mucous membranes of the mouth are moist. Neck supple. No JVD or thyromegaly LUNGS: Respirations even and unlabored. Lungs essentially clear to auscultation bilaterally. HEART: Regular rate and rhythm. S1 and S2 heard. ABDOMEN: Soft. Nondistended. Nontender. EXTREMITIES: Normal range of motion. No clubbing or cyanosis. Peripheral pulses intact. No lower extremity edema NEUROLOGIC: Awake and alert. Oriented x 3. ASSESSMENT: Chest pain, status post abnormal Lexiscan Coronary artery disease with previous stenting of LAD in 2019 performed at [facility] Hypertension Hyperlipidemia Diabetes Obstructive sleep apnea with CPAP use Nicotine dependence with recent cessation. Patient states he has not smoked in 1 week History of medication noncompliance History of ADHD Obesity: BMI 30.8 PLAN: Continue current cardiac medications including aspirin, Lipitor, Zetia, losartan, metoprolol Patient to undergo cardiac catheterization today with Dr. Rudolph Further recommendations pending patient course Nurse practitioner note has been reviewed by physician. Signing provider agrees with the documented findings, assessment, and plan of care documented by NEWSPAPER COLUMNIST as a scribe. Objective - Vital Signs Vital signs: Vital Signs Temp 98.1 F 11/17/24 07:25 Pulse 68 11/17/24 09:23 Resp 18 11/17/24 07:25 BP 128/68 11/17/24 07:25 Pulse Ox 95 11/17/24 07:25 FiO2 21 11/17/24 03:52 Intake & Output 11/16/24 11/17/24 11/17/24 18:59 06:59 18:59 Intake Total 192.913 Balance 192.913 Weight 108.862 kg Intake: Intake, IV Titration 74.913 Amount Heparin Sod,Pork in 0.45% 74.913 NaCl 25,000 unit In 0.45 % NaCl 1 250ml.bag @ 9.18 UNITS/KG/HR 9.994 mls/hr IV .Q24H [facility] Rx#: [id number] Oral 118 Other: # Voids 1 - Labs CBC & Chem 7: 11/17/24 04:46 11/17/24 04:46 Labs: Abnormal Lab Results - Last 24 Hours (Table) 11/16/24 11/16/24 11/16/24 Range/Units 12:18 17:09 21:17 WBC (4.50-10.00) X 10*3/uL Hgb (13.0-17.0) g/dL MCHC (32.0-37.0) g/dL Glucose (70-110) mg/dL POC Glucose (mg/dL) 137 H 266 H 263 H (70-110) mg/dL 11/17/24 11/17/24 11/17/24 Range/Units 04:46 04:46 06:06 WBC 13.30 H (4.50-10.00) X 10*3/uL Hgb 12.8 L (13.0-17.0) g/dL MCHC 31.6 L (32.0-37.0) g/dL Glucose 250 H (70-110) mg/dL POC Glucose (mg/dL) 225 H (70-110) mg/dL
[2024-11-17] MEDS: CLOPIDOGREL 75 MG TAB PO ONE (10:54)
[2024-11-17] MEDS: IOPAMIDOL-300 100ML BTL INJ ONE ×2 (10:56→11:21)
[2024-11-17] MEDS ORDERED: NITROGLYCERIN SL TABS 0.4 MG TAB SUBLINGUAL PRN (11:38)
[2024-11-17] MEDS ORDERED: ZOLPIDEM 5 MG TAB PO PRN (11:38)
[2024-11-17] MEDS ORDERED: MAG HYDROX/AL HYDROX/SIMETH 30 ML CUP PO PRN (11:38)
[2024-11-17] MEDS ORDERED: ATROPINE SULFATE 0.1 MG/ML 10ML SYRINGE IV PRN (11:38)
[2024-11-17] MEDS ORDERED: RX INFO: IV CONTRAST WAS GIVEN 1 EACH MISC MISCELLANE PRN (11:38)
--- NOTE | 2024-11-17 11:48 | P.CARDCATH ---
Date of Procedure: 11/17/24 Description of Procedure: Cardiac Catheterization: The patient is a 59-year-old male with a known history of hypertension, hyperlipidemia, diabetes, CAD and a prior history of smoking who presented with symptoms of chest discomfort and no evidence of myocardial infarction. He underwent an MPI that showed evidence of inferior lateral ischemia. Recommendations were made regarding cardiac catheterization, the risks and the complications were discussed with the patient who is in full understanding and agreement. Procedure Description: Patient was brought to trestle mainternance laborer in fasting semi-sedated state after receiving Fentanyl and Benadryl achieiving moderate conscious sedated state. Using Xylocaine Anesthesia and modified Seldinger technique, a 6-Bruneian sheath was introduced in the right radial artery . Subsequently, selective coronary angiography was performed using a 5-Bruneian 3.5 bend Karlos catheter. Multiple views of the coronary artery including hemiaxial views were obtained. The right Karlos catheter was used to cross the aortic valve and LVEDP was calculated. PCI: After removing the catheters a 6 Bruneian CLS 3.5 guiding catheter was introduced into the system and after cannulating the left main a 0.014 BMW J-wire was positioned in the distal left circumflex. Subsequently a [employer] Sycuan eye IVUS catheter was introduced and imaging were obtained and revealed a distal lumen measuring between 4.0 and 4.25 mm in diameter and proximally 4.5 to 5 mm in diameter. There was mild calcification. After removing the catheter a 4.0 x 23 mm Xience Skypoint stent was advanced and deployed at 16 shira. After removing the balloon repeat IVUS imaging was obtained and revealed mild under deployment of the stent in the midsegment. A 4.5 x 8 mm NC trek balloon was advanced and multiple inflation throughout the stent was performed at 12 shira. After the last inflation the wire was removed images were obtained and revealed stable successful stenting. Following that, catheter and sheath were removed. Hemostasis was obtained with deployment of vascular band . There was no immediate complication. Patient was returned to room in stable condition. Of note, the patient received a total of 11,000 units of intravenous heparin as well as intra-arterial verapamil. His ACT was monitored. He received an oral loading dose of clopidogrel. He had chest discomfort with the inflations that resolved at the end of the procedure. Findings: Left main: This is a large size vessel, bifurcating into LAD and left circumflex, left main has no obstructive disease. LAD: This is a large size vessel, reaching to the apex with a wraparound apex segment. The proximal LAD is stented and has mild in-stent restenosis of 20%. There is diffuse disease in the small diagonal branch. The mid and distal LAD has mild plaque of 30% with no high-grade stenosis. Left circumflex: This is a large dominant vessel, bifurcating distally to PDA and PLV. It gives rise to an obtuse marginal branch in the midsegment this totally occluded with retrograde flow. The proximal left circumflex has an eccentric 70 to 80% stenosis and there is another 70 to 80% stenosis in the midsegment, the rest of the vessel has no high-grade stenosis. RCA: This is a nondominant vessel, moderate in caliber giving rise to an acute marginal branch. The proximal right coronary artery has an tubular lesion of about 80%, the rest of the vessel has no high-grade stenosis. Left Ventriculogram: Not performed Hemodynamics: There was no gradient across aortic valve, LVEDP was 16-18 mmHg Conclusion: 1. Patent stent in the proximal LAD with mild in-stent restenosis 2. Chronically occluded OM 1 with retrograde filling 3. Significant disease in the proximal and mid left circumflex 4. Significant disease in the proximal nondominant RCA 5. Successful stenting of the proximal and mid left circumflex with reduction of stenosis from 80% to less than 5% with JV-3 flow and IVUS imaging Recommendations: The patient will continue on aspirin and clopidogrel without any interruption for 6 months in addition to aggressive coronary risks modifications, maintaining LDL below 70 mg/dL. The findings and the recommendations were discussed with the patient and he was in full understanding and agreement. Duration of sedation is 52 minutes.
[2024-11-17] MEDS: SODIUM CHLORIDE 0.9% 1,000 ML in EMPTY BAG 1 BAG IV SCH (12:26)
[2024-11-17 12:46] LABS: Glucose,Whole Blood 223 mg/dL (70-110)
[2024-11-17] MEDS: BENZONATATE 100 MG CAP PO PRN (15:17)
[2024-11-17] MEDS: IPRATROPIUM-ALBUTEROL 3 ML NEB INHALATION STA (15:54)
--- NOTE | 2024-11-17 16:38 | P.PN ---
Subjective Progress Note Date: 11/17/24 Hospital course: Patient is a very pleasant 59-year-old male with a past medical history of CAD status post stenting of LAD in 2019, hypertension, hyperlipidemia, hypothyroidism, and ner-rmvormf-[id number] diabetes mellitus. He presented to our facility on 11/15/2024 secondary to a chief complaint of chest pain. Upon arrival to our facility, patient underwent evaluation in the emergency department. Vital signs upon arrival show blood pressure 146/78, heart rate 68, respiratory, temp 97.7 F, and SpO2 of 97% on room air EKG completed showing normal sinus rhythm at 70 bpm with T wave inversion to inferior/lateral leads including 2, 3, aVF and V5 and V6. Chest x-ray completed negative for acute cardiopulmonary process. Cytosis with WBC count of 10.42 otherwise normal f indings. Coagulation profile normal findings. BMP showing slight elevation of renal function with BUN of 22, creatinine of 1.40, GFR 55 with baseline creatinine of 1.2. Calcium 9.3. Magnesium 1.8. Liver profile unremarkable. Troponin 0.018. Patient was started on low intensity heparin infusion for treatment of unstable angina. He was admitted under our services with consultation to cardiology. Troponins resulting at 0.018, 0.017, and 0.020. Lexiscan stress test completed showing large stress-induced ischemic changes to lateral with prior infarct and some mild reversibility at the inferior lateral wall of the cardiac apex with global hypokinesia and a low ejection fraction of 42%. Physical exam: Patient was seen and fully evaluated in room 631 shortly after returning from cardiac cath. TR band in place to right wrist, no signs of bleeding, bruising or hematoma. Patient reports feeling great and denies having any chest pain, palpitations, shortness of breath, or any other complaints. Patient eating sandwich at this time. Vital signs reviewed and stable. General: Nontoxic, no distress and appears stated age. Derm: Skin warm and dry, normal coloration for ethnicity. Head: Atraumatic, normocephalic and symmetric. Eyes: EOM's intact, no lid lag, and anicteric sclera Mouth: no lip lesions, mucus membranes moist Cardiovascular: regular rate and rhythm with normal S1S2, no murmur, positive posterior tibial pulses bilaterally, and cap refill < 2 seconds. Lungs: Respirations even, regular, and unlabored on room air. Lungs CTA bilaterally, no rhonchi, no rales, no wheezing, and no accessory muscle usage. Abdominal: soft, nontender to palpation, no guarding, no appreciable organomegaly Ext: ROM intact. No gross muscle atrophy, no edema, no contractures Neuro: Speech clear, face symmetrical and CN II-XII grossly intact with no noted focal neuro deficits Psych: Alert and oriented to person, place, time, and situation. Appropriate and pleasant affect. Assessment and Plan of Care: Chest pain, unstable angina CAD status post previous stenting Hypertension Hyperlipidemia -Cardiology following and took patient for cardiac catheterization this morning. -Patient was taken for cardiac catheterization and was found to have patent stent in the proximal LAD with mild in-stent restenosis, chronically occluded OM with retrograde filling, significant disease in the proximal and mid left circumflex, and significant disease in the proximal nondominant RCA. Patient underwent successful stenting of the proximal and mid left circumflex with reduction of stenosis reported from 80% down to less than 5%. -Telemetry monitoring -Troponins resulting at 0.018, 0.017, and 0.020. -Lexiscan stress test completed showing large stress-induced ischemic changes to lateral with prior infarct and some mild reversibility at the inferior lateral wall of the cardiac apex with global hypokinesia and a low ejection fraction of 42%. -Aspirin 81 mg daily, atorvastatin 80 mg daily, losartan 25 mg daily, metoprolol 25 mg twice daily, and as needed sublingual nitroglycerin. Obstructive sleep apnea Continue CPAP nightly and while napping. Type II ykg-[id number]-evrjtgray diabetes mellitus Hold metformin and continue with glycemic protocol with Humalog sliding scale. Hypothyroidism Continue daily medication regimen with levothyroxine 200 mcg daily. Data and imaging reviewed: -Labs reviewed. CBC showing WBC count of 13.30 and hemoglobin of 12.8. BMP unremarkable. Blood glucose was elevated this morning at 250. Calcium 8.8. Magnesium 1.9. -Vital signs completed and reviewed. Blood pressure 128/68, heart rate 69, respiratory rate 18, temp 98.1 F, and SpO2 of 95% on room air -Cardiac catheterization completed reported patient found to have patent stent in the proximal LAD with mild in-stent restenosis, chronically occluded OM with retrograde filling, significant disease in the proximal and mid left circumflex, and significant disease in the proximal nondominant RCA. Patient underwent successful stenting of the proximal and mid left circumflex with reduction of stenosis reported from 80% down to less than 5%. CODE STATUS: Full code DVT prophylaxis: Heparin Discussed with: Patient, RN, cardiology MATERIAL MOVER Anticipated discharge date: Pending clinical course Anticipated discharge place: Home Patient was seen independently by Nurse Pracitioner. This document was prepared using [employer] dictation software. Please allow for errors in pipe fitter, while rare they do occur. Sheldon Alvarez, MATERIAL MOVER rendered care for this patient independently, reviewed the findings and plan as documented in the note above and agree with plan. I did not physically speak with or examine the patient on this date. Objective - Vital Signs Vital signs: Vital Signs Temp 98.1 F 11/17/24 07:25 Pulse 68 11/17/24 09:23 Resp 18 11/17/24 07:25 BP 128/68 11/17/24 07:25 Pulse Ox 95 11/17/24 07:25 FiO2 21 11/17/24 03:52 Intake & Output 11/16/24 11/17/24 11/17/24 18:59 06:59 18:59 Intake Total 192.913 Balance 192.913 Weight 108.862 kg Intake: Intake, IV Titration 74.913 Amount Heparin Sod,Pork in 0.45% 74.913 NaCl 25,000 unit In 0.45 % NaCl 1 250ml.bag @ 9.18 UNITS/KG/HR 9.994 mls/hr IV .Q24H [facility] Rx#: [id number] Oral 118 Other: # Voids 1 - Labs CBC & Chem 7: 11/17/24 04:46 11/17/24 04:46 Labs: Abnormal Lab Results - Last 24 Hours (Table) 11/16/24 11/16/24 11/16/24 Range/Units 12:18 17:09 21:17 WBC (4.50-10.00) X 10*3/uL Hgb (13.0-17.0) g/dL MCHC (32.0-37.0) g/dL Glucose (70-110) mg/dL POC Glucose (mg/dL) 137 H 266 H 263 H (70-110) mg/dL 11/17/24 11/17/24 11/17/24 Range/Units 04:46 04:46 06:06 WBC 13.30 H (4.50-10.00) X 10*3/uL Hgb 12.8 L (13.0-17.0) g/dL MCHC 31.6 L (32.0-37.0) g/dL Glucose 250 H (70-110) mg/dL POC Glucose (mg/dL) 225 H (70-110) mg/dL
[2024-11-17 17:19] LABS: Glucose,Whole Blood 264 mg/dL (70-110)
[2024-11-17 20:01] LABS: Glucose,Whole Blood 244 mg/dL (70-110)
[2024-11-18 06:02] LABS: Glucose,Whole Blood 219 mg/dL (70-110)
[2024-11-18 06:38] LABS: African American GFR (CKD) >90 (>60 ml/min/1.73 sqM); Anion Gap 11 mmol/L; Blood Urea Nitrogen 20 mg/dL (9-20); Calcium 9.4 mg/dL (8.4-10.2); Carbon Dioxide 20 mmol/L (22-30); Chloride 105 mmol/L (98-107); Glucose 212 mg/dL (74-99); Non-African American GFR(CKD) 88 (>60 ml/min/1.73 sqM); Potassium 4.9 mmol/L (3.5-5.1); Sodium 136 mmol/L (137-145)
[2024-11-18 07:39] VITALS: BP 157/84; RESP 17; TEMP 97.7
[2024-11-18 08:52] LABS: HCT 39.4 % (39.6-50.0); HGB 12.5 g/dL (13.0-17.0); MCH 28.3 pg (27.0-32.0); MCHC 31.7 g/dL (32.0-37.0); MCV 89.3 FL (80.0-97.0); Mean Platelet Volume 10.5 FL (9.5-12.2); NRBC Per 100 WBC 0 X 10*3/uL (0.00-0.01); Platelet Count 392 X 10*3/uL (140-440); RBC 4.41 X 10*6/uL (4.40-5.60); RDW 14.4 % (11.5-14.5)
[2024-11-18] MEDS: CLOPIDOGREL 75 MG TAB PO SCH (08:54)
[2024-11-18 09:25] VITALS: PULSE 80
--- NOTE | 2024-11-18 10:12 | P.PN ---
Subjective HISTORY OF PRESENT ILLNESS: This is a 59-year-old male with a past medical history significant for coronary artery disease with previous stenting, hypertension, hyperlipidemia, ADHD, hypothyroidism, and obstructive sleep apnea with CPAP use. Patient follows in the office with Dr. Eli but has not been seen since August 2022. We have been asked to see the patient in consultation for chest pain. Patient examined at the bedside in the emergency room. Patient states he was driving to have lunch when he began to have chest pain. He states he has had pain similar to this in the past. He states it is somewhat similar to when he required stenting but not as intense. He does report radiation into his back. He states that once he got to the hospital and was in the air conditioning the cool air helped his pain and he has had no further episodes of chest pain since that time. He does report having some dizziness 2 nights ago as well. He reports chronic shortness of breath that is not worse than his baseline. He states that he is a cigarette smoker and is trying to quit and states he has not smoked in 1 week. He denies any drugs or alcohol use. He states that he is not very active on a daily basis. DIAGNOSTICS: - EKG reveals sinus mechanism with T wave inversions in inferior lateral leads, unchanged from previous EKGs. - Chest xray negative for acute process. - Laboratory data: WBC 10.01. Hemoglobin 12.4. Platelet count 377. Sodium 136. Potassium 3.7. BUN 21. Creatinine 1.25. Troponin negative x 3 - Current home cardiac medications include Zetia 10 mg daily, losartan 25 mg daily, aspirin 162.5 mg daily, metoprolol succinate dose unknown and Lipitor dose unknown. - Most recent echocardiogram obtained in August 2024 reveals ejection fraction 50 to 55%, trace mitral regurgitation - Patient underwent Lexiscan stress test in May 2022 revealing fixed lateral perfusion defect consistent with prior myocardial infarction in the circumflex territory. No reversible myocardial perfusion defect to suggest isch emia. 11/17/2024 Patient is status post Lexiscan stress test revealing large stress-induced ischemic changes lateral wall compatible with prior infarct. Some mild reversibility at the inferior lateral wall of the cardiac apex may be present. Some ravinder-infarct ischemic changes could be considered. Patient examined this morning the bedside. He denies any further episodes of chest pain or pressure. He denies any shortness of breath. Vital signs are stable. 11/18/2024 Patient is status postcardiac catheterization with Dr. Rudolph revealing patent stent in the proximal LAD with mild in-stent restenosis, chronically occluded OM1 with retrograde filling, significant disease in proximal and mid left circumflex, significant disease in proximal nondominant RCA. Patient underwent stenting of the proximal and mid left circumflex. Patient examined this morning at bedside. He denies any chest pain or pressure. He denies any shortness of breath. Vital signs are stable. PHYSICAL EXAM: VITAL SIGNS: Reviewed. GENERAL: Well-developed in no acute distress. HEENT: Head is normocephalic. Pupils are equal, round. Sclerae anicteric. Mucous membranes of the mouth are moist. Neck supple. No JVD or thyromegaly LUNGS: Respirations even and unlabored. Lungs essentially clear to auscultation bilaterally. HEART: Regular rate and rhythm. S1 and S2 heard. ABDOMEN: Soft. Nondistended. Nontender. EXTREMITIES: Normal range of motion. No clubbing or cyanosis. Peripheral pulses intact. No lower extremity edema NEUROLOGIC: Awake and alert. Oriented x 3. ASSESSMENT: Chest pain, status post abnormal Lexiscan Coronary artery disease with previous stenting of LAD in 2019 performed at [facility] Hypertension Hyperlipidemia Diabetes Obstructive sleep apnea with CPAP use Nicotine dependence with recent cessation. Patient states he has not smoked in 1 week History of medication noncompliance History of ADHD Obesity: BMI 30.8 PLAN: Continue dual antiplatelet therapy with aspirin and Plavix for 6 months Continue high intensity statin. LDL goal less than 70 Continue additional cardiac medications Patient is stable for discharge home today from a cardiac standpoint Patient to follow-up postdischarge with Dr. Eli Nurse practitioner note has been reviewed by physician. Signing provider agrees with the documented findings, assessment, and plan of care documented by SEAMLESS TUBE ROLLER as a scribe. Objective - Vital Signs Vital signs: Vital Signs Temp 97.7 F 11/18/24 07:00 Pulse 80 11/18/24 09:25 Resp 17 11/18/24 07:00 BP 157/84 11/18/24 07:00 Pulse Ox 96 11/18/24 09:15 FiO2 21 11/18/24 03:36 Intake & Output 11/17/24 11/18/24 11/18/24 18:59 06:59 18:59 Intake Total 1021 Output Total 650 Balance 371 Intake: IV 200 Oral 821 Output: Urine 650 Other: Voiding Method Toilet # Voids 3 - Labs CBC & Chem 7: 11/18/24 05:26 11/18/24 05:26 Labs: Abnormal Lab Results - Last 24 Hours (Table) 11/17/24 11/17/24 11/17/24 Range/Units 12:45 17:19 20:00 WBC (4.50-10.00) X 10*3/uL Hgb (13.0-17.0) g/dL Hct (39.6-50.0) % MCHC (32.0-37.0) g/dL Sodium (137-145) mmol/L Carbon Dioxide (22-30) mmol/L Glucose (74-99) mg/dL POC Glucose (mg/dL) 223 H 264 H 244 H (70-110) mg/dL 11/18/24 11/18/24 11/18/24 Range/Units 05:26 05:26 06:00 WBC 14.20 H (4.50-10.00) X 10*3/uL Hgb 12.5 L (13.0-17.0) g/dL Hct 39.4 L (39.6-50.0) % MCHC 31.7 L (32.0-37.0) g/dL Sodium 136 L (137-145) mmol/L Carbon Dioxide 20 L (22-30) mmol/L Glucose 212 H (74-99) mg/dL POC Glucose (mg/dL) 219 H (70-110) mg/dL
[2024-11-18 10:29] VITALS: BMI 30.8
--- NOTE | 2024-11-18 11:07 | P.DS ---
Providers Date of admission: 11/15/24 18:02 Expected date of discharge: 11/18/24 Attending physician: Torsten Shipley MD Consults: 11/15/24 18:01 Consult Physician Urgent Consulting Provider: Hiren Eli Consult Reason/Comments: UA,CP,known Do you want consulting provider notified?: Yes 11/17/24 11:39 Consult Physician Routine Consulting Provider: [facility] Consult Reason/Comments: Post Interventional Patient Do you want consulting provider notified?: Already Contacted Primary care physician: Kobi Schaefer [facility] Course: Discharge Diagnosis: Chest pain, unstable angina. Troponins resulting at 0.018, 0.017, and 0.020. Lexiscan stress test completed showing large stress-induced ischemic changes to lateral with prior infarct and some mild reversibility at the inferior lateral wall of the cardiac apex with global hypokinesia and a low ejection fraction of 42%. Patient was taken for cardiac catheterization and was found to have patent stent in the proximal LAD with mild in-stent restenosis, chronically occluded OM with retrograde filling, significant disease in the proximal and mid left circumflex, and significant disease in the proximal nondominant RCA. Patient underwent successful stenting of the proximal and mid left circumflex with reduction of stenosis reported from 80% down to less than 5%. Patient was cleared from cardiac perspective recommending outpatient follow-up in their office in 1 week. Patient medically optimized and free from any complaints at this time. He was discharged home on dual antiplatelet therapy with aspirin 81 mg daily and Plavix 75 mg daily in addition to current cardiac medication regimen with Zetia 10 mg daily, losartan 25 mg daily, metoprolol 100 mg daily, and atorvastatin 40 mg nightly. 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 CAD status post previous previous stenting of LAD. Hypertension Hyperlipidemia Obstructive sleep apnea. Continue home CPAP nightly and while napping. Type II [id number] diabetes mellitus. Resume home medication regimen with metformin 500 mg daily Hypothyroidism. Continue daily medication regimen with levothyroxine 200 mcg daily. Hospital Course: Patient is a very pleasant 59-year-old male with a past medical history of CAD status post stenting of LAD in 2019, hypertension, hyperlipidemia, hypothyroidism, and [id number]-[id number] diabetes mellitus. He presented to our facility on 11/15/2024 secondary to a chief complaint of chest pain. Upon arrival to our facility, patient underwent evaluation in the emergency department. Vital signs upon arrival show blood pressure 146/78, heart rate 68, respiratory, temp 97.7 F, and SpO2 of 97% on room air EKG completed showing normal sinus rhythm at 70 bpm with T wave inversion to inferior/lateral leads including 2, 3, aVF and V5 and V6. Chest x-ray completed negative for acute cardiopulmonary process. Cytosis with WBC count of 10.42 otherwise normal findings. Coagulation profile normal findings. BMP showing slight elevation of renal function with BUN of 22, creatinine of 1.40, GFR 55 with baseline creatinine of 1.2. Calcium 9.3. Magnesium 1.8. Liver profile unremarkable. Troponin 0.018. Patient was started on low intensity heparin infusion for treatment of unstable angina. He was admitted under our services with consultation to cardiology. Troponins resulting at 0.018, 0.017, and 0.020. Lexiscan stress test completed showing large stress-induced ischemic changes to lateral with prior infarct and some mild reversibility at the inferior lateral wall of the cardiac apex with global hypokinesia and a low ejection fraction of 42%. Patient was taken for cardiac catheterization and was found to have patent stent in the proximal LAD with mild in-stent restenosis, chronically occluded OM with retrograde filling, significant disease in the proximal and mid left c ircumflex, and significant disease in the proximal nondominant RCA. Patient underwent successful stenting of the proximal and mid left circumflex with reduction of stenosis reported from 80% down to less than 5%. Patient was cleared from cardiac perspective recommending outpatient follow-up in their office in 1 week. Patient medically optimized and free from any complaints at this time. He was discharged home on dual antiplatelet therapy with aspirin 81 mg daily and Plavix 75 mg daily in addition to current cardiac medication regimen with Zetia 10 mg daily, losartan 25 mg daily, metoprolol 100 mg daily, and atorvastatin 40 mg nightly. 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 Physical exam: Vital signs reviewed and stable. General: Nontoxic, no distress and appears stated age. Derm: Skin warm and dry, normal coloration for ethnicity. Head: Atraumatic, normocephalic and symmetric. Eyes: EOM's intact, no lid lag, and anicteric sclera Mouth: no lip lesions, mucus membranes moist Cardiovascular: regular rate and rhythm with normal S1S2, no murmur, positive posterior tibial pulses bilaterally, and cap refill < 2 seconds. Cardiac cath access site of right wrist revealing only minimal bruising at insertion site, no swelling, drainage, hematoma noted. Patient denies any numbness/tingling/weakness in right hand or fingers. Lungs: Respirations even, regular, and unlabored on room air. Lungs CTA bilaterally, no rhonchi, no rales, no wheezing, and no accessory muscle usage. Abdominal: soft, nontender to palpation, no guarding, no appreciable organomegaly Ext: ROM intact. No gross muscle atrophy, no edema, no contractures Neuro: Speech clear, face symmetrical and CN II-XII grossly intact with no noted focal neuro deficits Psych: Alert and oriented to person, place, time, and situation. Appropriate and pleasant affect. A total of 35 minutes of time were spent preparing this complex discharge summary. Pt was discharged on 11/18/2024 at 9:57 AM Patient was seen independently by Nurse Practitioner. This document was prepared using [employer] dictation software. Please allow for errors in spanner operator while rare they do occur. Sheldon Alvarez NP rendered care for this patient independently, reviewed the findings and plan as documented in the note above. I did not physically speak with or examine the patient on this date. Patient Condition at Discharge: Stable Plan - Discharge Summary Discharge Rx Participant: No New Discharge Prescriptions: New Aspirin 81 mg PO DAILY 30 Days #30 tab Clopidogrel [Plavix] 75 mg PO DAILY 30 Days #30 tab Continue metFORMIN HCL 500 mg PO DAILY Levothyroxine Sodium 200 mcg PO DAILY #30 tab Ezetimibe [Zetia] 10 mg PO DAILY #30 tab Nicotine Polacrilex [Nicotine Gum] 4 mg BUCCAL Q2H PRN PRN Reason: Nicotine Cravings Dorzolamide-Timol 2.23%/0.68% [Cosopt] 1 drop BOTH EYES BID Losartan [Cozaar] 25 mg PO DAILY #30 tab Varenicline [Chantix Starter Pack] See Taper PO DIRECTED Varenicline [Chantix Continuing Pack] 1 mg PO DIRECTED Nicotine 21Mg/24Hr Patch [Habitrol] 1 patch TRANSDERM DAILY PRN PRN Reason: Nicotine Cravings Metoprolol Succinate (ER) [Toprol XL] 100 mg PO DAILY Atorvastatin [Lipitor] 40 mg PO DAILY Discontinued Aspirin EC [Ecotrin] 162.5 mg PO DAILY Discharge Medication List Levothyroxine Sodium 200 mcg PO DAILY #30 tab 09/08/24 [Rx] metFORMIN HCL 500 mg PO DAILY 09/08/24 [History] Dorzolamide-Timol 2.23%/0.68% [Cosopt] 1 drop BOTH EYES BID 09/14/24 [History] Ezetimibe [Zetia] 10 mg PO DAILY #30 tab 09/16/24 [Rx] Losartan [Cozaar] 25 mg PO DAILY #30 tab 09/16/24 [Rx] Nicotine 21Mg/24Hr Patch [Habitrol] 1 patch TRANSDERM DAILY PRN 11/15/24 [History] Nicotine Polacrilex [Nicotine Gum] 4 mg BUCCAL Q2H PRN 11/15/24 [History] Varenicline [Chantix Continuing Pack] 1 mg PO DIRECTED 11/15/24 [History] Varenicline [Chantix Starter Pack] See Taper PO DIRECTED 11/15/24 [History] Atorvastatin [Lipitor] 40 mg PO DAILY 11/16/24 [History] Metoprolol Succinate (ER) [Toprol XL] 100 mg PO DAILY 11/16/24 [History] Aspirin 81 mg PO DAILY 30 Days #30 tab 11/18/24 [Rx] Clopidogrel [Plavix] 75 mg PO DAILY 30 Days #30 tab 11/18/24 [Rx] Follow up Appointment(s)/Referral(s): Hiren Eli DO [STAFF PHYSICIAN] - 11/23/24 2:00 pm Kobi Schaefer DO [Primary Care Provider] - 1-2 days Patient Instructions/Handouts: Heart Catheterization (DC) Activity/Diet/Wound Care/Special Instructions: Discharge Instructions After Cardiac Catheterization with Stent Placement: Aspirin as anti-platelet therapy - Aspirin lessens the chance of heart attack and stroke. It helps prevent blood clots from forming, allowing the blood to flow more easily. Each day, you will take one 81 mg (non-enteric coated) tablet daily. Do not stop unless instructed by your doctor. Anti-platelet Therapy. -In addition to aspirin, you will take one additional anti-platelet medication daily. This will help prevent a clot from forming in your stent: Plavix (clopidogrel) -You will need to take your anti-platelet medicine every day for 12 months -Please consult your heart doctor before you stop this medicine. -They may want you to continue for a longer period of time. Statins -A statin medication lowers cholesterol levels in the blood. This helps slow the progression of heart disease. - Please take your statin medication as prescribed by your doctor. -You may be taking one of the following statins: Atorvastatin Beta blockers Your Medication: Metoprolol Is a medication that protects your heart from stress and can prevent future heart attacks. It can slow your heart rate. It can take weeks for your body to get used to a beta kee. The dose may need to be changed a few times as your body adjusts Angiotensin receptor kee (ARB) Your medication: Losartan is an angiotensin receptor kee in the ER used to reduce cardiovascular events and decrease the risk of developing diabetes, these medications are also known to prevent left ventricular remodeling after you have suffered a myocardial infarction. Do not stop taking these medicines without talking to your doctor. -Take all other medicines as directed by your doctor. Do not take any extra aspirin or ibuprofen. They can increase your risk of bleeding. Many mesb-lxe-ecndopp drugs contain aspirin. If you are unsure about what the drug contains, check with your pharmacist before taking it. -For mild discomfort, you may take plain Tylenol (acetaminophen). Follow dose directions, but do not take more than 4,000 mg of acetaminophen in 24 hours. Contact your doctor right away or go to the nearest hospital Emergency Room if you have: -Severe angina or chest pain. (This may be a sign of a problem with your stent.) -Excessive bruising, blood in urine/stool or black tarry stools. Healthy LifeStyle It is important to keep a heart healthy lifestyle. This can improve your long- term health and decrease your risk for heart attacks. -Managing your blood cholesterol, blood pressure, weight, and stress. -The importance of regular exercise. -Heart Healthy Diet: Include more plants in your diet. Eat lots of fresh vegetables and fresh fruits. Eat good fats: plant based oils, avocado, nuts, beans, legumes. Eat more seafood. Limit Meat. Switch to whole grains. -Avoid fried foods and animal fats and processed meats Follow up with your PCP Dr. Schaefer and [facility] with Dr. Eli Thank you for allowing us to participate in your care, it was truly a pleasure having you for our patient!!!
[2024-11-18 12:27] LABS: Glucose,Whole Blood 184 mg/dL (70-110)
== END 2024-11-18 13:38 | disposition home or self-care (01) | DRG 175 ==
LOC: EC 15:30 → 6NMEDSUR 18:01 → OBSVTOIN 18:02 → 6NMEDSUR 18:22
PROVIDERS: ADMIT Internal Medicine; ATTEND Internal Medicine
PROC: 0270346 Dilation of Coronary Artery, One Artery, Bifurcation, with Drug-eluting Intraluminal Device, Percutaneous Approach (ICD-10-PCS; principal; 2024-11-17 10:30)
PROC: B241ZZ3 Ultrasonography of Multiple Coronary Arteries, Intravascular (ICD-10-PCS; principal; 2024-11-17 10:30)
PROC: 4A023N7 Measurement of Cardiac Sampling and Pressure, Left Heart, Percutaneous Approach (ICD-10-PCS; principal; 2024-11-17 10:30)
PROC: B2111ZZ Fluoroscopy of Multiple Coronary Arteries using Low Osmolar Contrast (ICD-10-PCS; principal; 2024-11-17 10:30)
DX: I25.110 Atherosclerotic heart disease of native coronary artery with unstable angina pectoris (principal); I25.5 Ischemic cardiomyopathy; I25.82 Chronic total occlusion of coronary artery; T82.855A Stenosis of coronary artery stent, initial encounter; Y83.1 Surgical operation with implant of artificial internal device as the cause of abnormal reaction of the patient, or of later complication, without mention of misadventure at the time of the procedure; F17.210 Nicotine dependence, cigarettes, uncomplicated; G47.33 Obstructive sleep apnea (adult) (pediatric); F90.9 Attention-deficit hyperactivity disorder, unspecified type; I10 Essential (primary) hypertension; E89.0 Postprocedural hypothyroidism; E11.9 Type 2 diabetes mellitus without complications; E66.9 Obesity, unspecified; E78.5 Hyperlipidemia, unspecified; Z68.30 Body mass index [BMI] 30.0-30.9, adult; Z79.02 Long term (current) use of antithrombotics/antiplatelets; Z79.82 Long term (current) use of aspirin; Z79.84 Long term (current) use of oral hypoglycemic drugs; Z79.890 Hormone replacement therapy; Z79.899 Other long term (current) drug therapy
CPT/HCPCS: 36415; 71046; 78452; 80048; 80053; 83690; 83735; 83880; 84484; 85025; 85027; 85610; 85730; 92978; 93005; 93017; 93458; 94640; 94660; 94760; 96365; 96366; 96375; 96376; 99291